=== PATIENT | male | born 1965 | race Caucasian/White ===

== ENCOUNTER 2016-11-07 13:07 | Inpatient (IN) | payer MEDICAID ==
[2016-11-07] MEDS ORDERED: Sodium Chloride 0.9% 10 ML Syringe FLUSH PRN (13:33)
[2016-11-07] MEDS ORDERED: Famotidine 20 MG/2 ML SDV IVPUSH ONE (13:35)
[2016-11-07] MEDS ORDERED: Ondansetron 4 MG/2 ML SDV IVPUSH ONE (13:35)
[2016-11-07] MEDS ORDERED: HYDROmorphone 0.5 MG/0.5 ML Syringe IVPUSH ONE ×2 (13:35→18:01)
--- NOTE | 2016-11-07 14:42 | EDM.PDOC ---
ED HPI GENERAL MEDICAL PROBLEM - General Chief Complaint: Abdominal Pain Stated Complaint: [facility] Time Seen by Provider: 11/07/16 13:13 Source of Information: Reports: Patient, RN Notes Reviewed - History of Present Illness INITIAL COMMENTS - FREE TEXT/NARRATIVE: 51 year old male comes in with R upper abd pain, onset of pain last evening about 16 hrs ago, pain is primarily R upper abd with some radiation to his back. Pain is somewhat colicky, hard to find position of comfort. Pain continues today. No appetite, has not eaten since last evening. He has had nausea and vomiting. No diarrhea. No fever or chills. No voiding sx. Pain does not radiate down into the groin. Right Abdominal Pain Score (Numeric/FACES): 10 - Related Data Allergies Allergy/AdvReac Type Severity Reaction Status Date / Time No Known Allergies Allergy Verified 11/07/16 13:14 Home Meds: Home Meds . [No Known Home Meds] 11/07/16 [History] Past Medical History - Past Health History Medical/Surgical History: Denies Medical/Surgical History Social & Family History - Family History Family Medical History: Noncontributory - Tobacco Use Smoking Status *Q: Current Every Day Smoker Years of Tobacco use: 25 Packs/Tins Daily: 1 ED ROS GENERAL - Review of Systems Review Of Systems: See Below Constitutional: Denies: Fever, Chills, Diaphoresis HEENT: Reports: No Symptoms Respiratory: Denies: Shortness of Breath, Pleuritic Chest Pain, Cough Cardiovascular: Denies: Chest Pain GI/Abdominal: Reports: Abdominal Pain (R upper abd), Nausea, Vomiting. Denies: Diarrhea, Hematochezia, Melena Musculoskeletal: Reports: No Symptoms Skin: Reports: No Symptoms Neurological: Denies: Dizziness, Numbness, Tingling ED EXAM, GI/ABD - Physical Exam Exam: See Below General Appearance: Alert, Moderate Distress Throat/Mouth: Normal Inspection, Normal Oropharynx Head: Atraumatic. No: Facial Swelling Neck: Supple, Full Range of Motion Respiratory/Chest: Lungs Clear, Normal Breath Sounds Cardiovascular: Regular Rate, Rhythm GI/Abdominal Exam: Soft, Tender ( right upper abd, upper mid abd, mild tenderness R flank, RLQ, L abd nontender at this time). No: Guarding, Rebound Back Exam: CVA Tenderness (R). No: CVA Tenderness (L) Extremities: Normal Inspection, Normal Range of Motion Neurological: Alert, Oriented, No Motor/Sensory Deficits Skin Exam: Warm, Dry, Normal Color Course - Vital Signs Last Recorded V/S: Last Vital Signs Temp 98.0 F 11/07/16 13:11 Pulse 97 11/07/16 14:26 Resp 16 11/07/16 14:26 BP 132/88 11/07/16 14:26 Pulse Ox 94 L 11/07/16 14:26 - Orders/Labs/Meds Orders: Active Orders 24 hr Category Date Time Status Peripheral IV Care [RC] . DIRECTED Care 11/07/16 13:34 Active UA W/MICROSCOPIC [URIN] Stat Lab 11/07/16 13:35 Uncollected Sodium Chloride 0.9% [Normal Saline] 1,000 ml Med 11/07/16 14:45 Active IV ONETIME Sodium Chloride 0.9% [Normal Saline] 1,000 ml Med 11/07/16 15:45 Active IV ONETIME Sodium Chloride 0.9% [Normal Saline] 100 ml Med 11/07/16 15:45 Active IV ASDIRECTED Sodium Chloride 0.9% [Saline Flush] Med 11/07/16 13:33 Active 10 ml FLUSH ASDIRECTED PRN Peripheral IV Insertion Adult [OM.PC] Stat Oth 11/07/16 13:34 Ordered Medication Orders Sodium Chloride (Normal Saline) 1,000 mls @ 999 mls/hr IV ONETIME EMILY Last Admin: 11/07/16 16:33 Dose: 999 mls/hr Infusion: 11/07/16 15:46 Dose: 999 mls/hr Admin: 11/07/16 14:45 Dose: 999 mls/hr Sodium Chloride (Normal Saline) 1,000 mls @ 999 mls/hr IV ONETIME EMILY Sodium Chloride (Normal Saline) 100 mls @ 60 mls/hr IV ASDIRECTED EMILY Last Admin: 11/07/16 16:24 Dose: 60 mls/hr Sodium Chloride (Saline Flush) 10 ml FLUSH ASDIRECTED PRN PRN Reason: Keep Vein Open Last Admin: 11/07/16 14:16 Dose: 10 ml Labs: Laboratory Tests 11/07/16 11/07/16 11/07/16 Range/Units 13:15 13:15 13:15 WBC 21.00 H (4.23-9.07) K/mm3 RBC 5.49 (4.63-6.08) M/mm3 Hgb 17.5 (13.7-17.5) gm/L Hct 50.9 (40.1-51.0) % MCV 92.7 H (79.0-92.2) fl MCH 31.9 (25.7-32.2) pg MCHC 34.4 (32.2-35.5) g/dl RDW Std Deviation 45.5 H (35.1-43.9) fL Plt Count 174 (163-337) K/mm3 MPV 11.3 (9.4-12.3) fl Neut % (Auto) 88.9 H (34.0-67.9) % Lymph % (Auto) 4.0 L (21.8-53.1) % Sampson % (Auto) 6.9 (5.3-12.2) % Eos % (Auto) 0 L (0.8-7.0) Baso % (Auto) 0.0 L (0.1-1.2) % Neut # (Auto) 18.68 H (1.78-5.38) K/mm3 Lymph # (Auto) 0.83 L (1.32-3.57) K/mm3 Sampson # (Auto) 1.44 H (0.30-0.82) K/mm3 Eos # (Auto) 0.00 L (0.04-0.54) K/mm3 Baso # (Auto) 0.01 (0.01-0.08) K/mm3 Manual Slide Review Abnormal smear Sodium 138 (136-145) mEq/L Potassium 3.7 (3.5-5.1) mEq/L Chloride 102 (98-107) mEq/L Carbon Dioxide 22 (21-32) mEq/L Anion Gap 17.7 H (5-15) BUN 13 (7-18) mg/dL Creatinine 1.7 H (0.7-1.3) mg/dL Est Cr Clr Drug Dosing 54.27 mL/min Estimated GFR (MDRD) 43 (>60) mL/min BUN/Creatinine Ratio 7.6 L (14-18) Glucose 135 H (74-106) mg/dL Calcium 9.5 (8.5-10.1) mg/dL Total Bilirubin 0.9 (0.2-1.0) mg/dL GGT 37 (15-85) U/L AST 19 (15-37) U/L ALT 34 (16-63) U/L Alkaline Phosphatase 90 (46-116) U/L C-Reactive Protein 7.3 H* (<1.0) mg/dL Total Protein 8.2 (6.4-8.2) g/dl Albumin 4.2 (3.4-5.0) g/dl Globulin 4.0 gm/dL Albumin/Globulin Ratio 1.1 (1-2) Lipase 141 (73-393) U/L Meds: Medications Generic Name Dose Route Start Last Admin Trade Name Freq PRN Reason Stop Dose Admin Sodium Chloride 1,000 mls @ 999 mls/hr 11/07/16 14:45 11/07/16 16:33 Normal Saline IV 999 mls/hr ONETIME EMILY Administration Sodium Chloride 1,000 mls @ 999 mls/hr 11/07/16 15:45 Normal Saline IV ONETIME EMILY Sodium Chloride 100 mls @ 60 mls/hr 11/07/16 15:45 11/07/16 16:24 Normal Saline IV 60 mls/hr ASDIRECTED EMILY Administration Sodium Chloride 10 ml 11/07/16 13:33 11/07/16 14:16 Saline Flush FLUSH 10 ml ASDIRECTED PRN Administration Keep Vein Open Discontinued Medications Generic Name Dose Route Start Last Admin Trade Name Freq PRN Reason Stop Dose Admin Diatrizoate Meglum/Diatrizoate Sod 90 ml 11/07/16 15:44 11/07/16 16:23 Gastrografin 37% PO 11/07/16 15:45 90 ml ONETIME ONE Administration Famotidine 20 mg 11/07/16 13:35 11/07/16 14:10 Pepcid IVPUSH 11/07/16 13:36 20 mg ONETIME ONE Administration Hydromorphone HCl 0.5 mg 11/07/16 13:35 11/07/16 13:47 Dilaudid IVPUSH 11/07/16 13:36 0.5 mg ONETIME ONE Administration Hydromorphone HCl 0.5 mg 11/07/16 16:01 11/07/16 16:05 Dilaudid IVPUSH 11/07/16 16:02 0.5 mg NOW STA Administration Iopamidol 100 ml 11/07/16 15:44 11/07/16 16:24 Isovue-370 (76%) IVPUSH 11/07/16 15:45 100 ml ONETIME ONE Administration Ondansetron HCl 4 mg 11/07/16 13:35 11/07/16 14:14 Zofran IVPUSH 11/07/16 13:36 4 mg ONETIME ONE Administration Sodium Chloride 10 ml 11/07/16 15:44 11/07/16 16:24 Saline Flush FLUSH 11/07/16 15:45 10 ml ONETIME ONE Administration - Re-Assessments/Exams Free Text/Narrative Re-Assessment/Exam: 11/07/16 17:21 CT of abd does show appendix is dilated, surrounding inflamation compatable with acute appendicitis, see report for details. Have discussed this with Dr Dutton, will see patient in ED and be taking patient to ED for appendectomy. Departure - Departure Time of Disposition: 17:25 Disposition: DC/Tfer to [facility] Condition: Serious Clinical Impression: Appendicitis Qualifiers: Appendicitis type: acute appendicitis Acute appendicitis type: unspecified acute appendicitis type Qualified Code(s): K35.80 - Unspecified acute appendicitis - Discharge Information Forms: ED Department Discharge ED Communication - Discussed Case With (1) Discussed Case With (1): Admitting Provider (Dr Dutton, decision to got to admit and go to OR at about 17:20.) - My Orders Last 24 Hours: My Active Orders 11/07/16 13:33 Sodium Chloride 0.9% [Saline Flush] 10 ml FLUSH ASDIRECTED PRN 11/07/16 13:34 Peripheral IV Care [RC] . DIRECTED Peripheral IV Insertion Adult [OM.PC] Stat 11/07/16 13:35 UA W/MICROSCOPIC [URIN] Stat 11/07/16 14:45 Sodium Chloride 0.9% [Normal Saline] 1,000 ml IV ONETIME 11/07/16 15:45 Sodium Chloride 0.9% [Normal Saline] 1,000 ml IV ONETIME Sodium Chloride 0.9% [Normal Saline] 100 ml IV ASDIRECTED - Assessment/Plan Last 24 Hours: My Active Orders 11/07/16 13:33 Sodium Chloride 0.9% [Saline Flush] 10 ml FLUSH ASDIRECTED PRN 11/07/16 13:34 Peripheral IV Care [RC] . DIRECTED Peripheral IV Insertion Adult [OM.PC] Stat 11/07/16 13:35 UA W/MICROSCOPIC [URIN] Stat 11/07/16 14:45 Sodium Chloride 0.9% [Normal Saline] 1,000 ml IV ONETIME 11/07/16 15:45 Sodium Chloride 0.9% [Normal Saline] 1,000 ml IV ONETIME Sodium Chloride 0.9% [Normal Saline] 100 ml IV ASDIRECTED
--- NOTE | 2016-11-07 14:43 | US ---
Limited abdominal ultrasound: Multiple real-time images of the right upper abdomen were obtained. Comparison: No previous abdominal imaging. Technologist's note: Patient extremely gassy Liver not well seen but shows no discrete abnormality. Right kidney shows no hydronephrosis or mass. Right kidney measures 11.5 cm in length. There appears to be a cyst off the inferior right kidney measuring 3.9 cm. Gallbladder shows no calcified gallstones. Minimal comet tail artifact is noted within the gallbladder lumen compatible with gallbladder adenomyomatosis. No biliary duct dilatation is seen. Pancreas is mostly obscured from bowel gas. Impression: 1. Poorly seen liver. Poorly seen pancreas. 2. No gallstones. Probable adenomyosis of the gallbladder. No biliary duct dilatation is seen. 3. 3.9 cm cyst seen inferiorly within the right kidney. Diagnostic code #3
[2016-11-07] MEDS: Sodium Chloride 0.9% 1,000 ML IV SCH ×2 (14:45→16:33)
[2016-11-07] MEDS ORDERED: Iopamidol 755 Mg/ML 100 ML Bottle IVPUSH ONE (15:44)
[2016-11-07] MEDS ORDERED: Sodium Chloride 0.9% 10 ML Syringe FLUSH ONE (15:44)
[2016-11-07] MEDS ORDERED: Diatrizoate Meglumine/Diatrizoate Sodium 37% 120 ML Bottle PO ONE (15:44)
[2016-11-07] MEDS ORDERED: Sodium Chloride 0.9% 100 ML IV SCH (15:45)
[2016-11-07] MEDS ORDERED: Sodium Chloride 0.9% 1,000 ML IV SCH (15:45)
[2016-11-07] MEDS ORDERED: HYDROmorphone 0.5 MG/0.5 ML Syringe IVPUSH STA (16:01)
--- NOTE | 2016-11-07 17:02 | CT ---
CT abdomen and pelvis Technique: Multiple axial sections were obtained from above the dome of the diaphragm inferiorly through the pubic symphysis. Intravenous and oral contrast was given. Delayed images were also obtained from above the kidneys inferiorly through the pubic symphysis. Findings: Dilated appendix is noted within the right midabdomen extending superiorly to beneath the liver showing surrounding inflammatory change. Findings are compatible with appendicitis. Slight atelectasis is seen posteriorly within both lung bases. Calcified granuloma is seen anteriorly within the right lung base. Liver shows no focal parenchymal abnormality. Spleen appears within normal limits. Adrenal glands show no nodule. Pancreas appears within normal limits. Kidneys show no hydronephrosis. Cyst is identified within the lower pole of the left kidney measuring 3.8 cm. Aorta shows atherosclerotic change without aneurysmal dilatation. No retroperitoneal adenopathy or mesenteric abnormalities are seen. No pelvic mass or adenopathy is seen. Delayed images shows contrast excretion into both ureters which show no dilatation. Contrast is seen within the bladder. Bone window settings were reviewed which shows scattered disc space narrowing primarily at L2-3 and L5 S1 with vacuum phenomena. Impression: 1. Findings compatible with appendicitis. Appendix is slightly high in position starting at the mid abdomen and extending superiorly to the inferior liver. 2. Other incidental findings as noted above. Diagnostic code #5
[2016-11-07] MEDS ORDERED: Lidocaine 1% 4 ML ONE (17:50)
[2016-11-07] MEDS ORDERED: Propofol 200 MG/20 ML SDV ONE (17:50)
[2016-11-07] MEDS ORDERED: Midazolam 1 MG/ML 2 ML SDV ONE (17:50)
[2016-11-07] MEDS ORDERED: Ondansetron 4 MG/2 ML SDV ONE (17:50)
[2016-11-07] MEDS ORDERED: Rocuronium 50 MG/5 ML Vial ONE (17:50)
[2016-11-07] MEDS ORDERED: fentaNYL 250 MCG/5 ML SDV ONE (17:50)
--- NOTE | 2016-11-07 17:53 | PCM.PREANE ---
Preanesthetic Assessment - Anesthesia/Transfusion/Family Hx Anesthesia History: No Prior Anesthesia Family History of Anesthesia Reaction: No Transfusion History: No Prior Transfusion(s) - Review of Systems General: Fever, Chills (for 1 day due to abd pain) Pulmonary: No Symptoms Cardiovascular: No Symptoms Gastrointestinal: Abdominal Pain (for 1 day), Vomiting (this am) Neurological: No Symptoms Other: Reports: None - Physical Assessment NPO Status Date: 11/06/16 NPO Status Time: 19:00 Pulse: 88 O2 Sat by Pulse Oximetry: 94 Respiratory Rate: 16 Vital Signs: Last Vital Signs Temp 98.0 F 11/07/16 13:11 Pulse 97 11/07/16 14:26 Resp 16 11/07/16 14:26 BP 132/88 11/07/16 14:26 Pulse Ox 94 L 11/07/16 14:26 Height: 5 ft 10 in Weight: 90.718 kg ASA Class: 2E Mental Status: Alert & Oriented x3 Airway Class: Mallampati = 1 Dentition: Reports: Partial (top) Thyro-Mental Finger Breadths: 3 Mouth Opening Finger Breadths: 3 ROM/Head Extension: Full Lungs: Clear to Auscultation, Normal Respiratory Effort, Wheezing (prior to coughing) Cardiovascular: Regular Rate, Regular Rhythm - Lab Values: Laboratory Last Values WBC 21.00 K/mm3 (4.23-9.07) H 11/07/16 13:15 RBC 5.49 M/mm3 (4.63-6.08) 11/07/16 13:15 Hgb 17.5 gm/L (13.7-17.5) 11/07/16 13:15 Hct 50.9 % (40.1-51.0) 11/07/16 13:15 MCV 92.7 fl (79.0-92.2) H 11/07/16 13:15 MCH 31.9 pg (25.7-32.2) 11/07/16 13:15 MCHC 34.4 g/dl (32.2-35.5) 11/07/16 13:15 RDW Std Deviation 45.5 fL (35.1-43.9) H 11/07/16 13:15 Plt Count 174 K/mm3 (163-337) 11/07/16 13:15 MPV 11.3 fl (9.4-12.3) 11/07/16 13:15 Neut % (Auto) 88.9 % (34.0-67.9) H 11/07/16 13:15 Lymph % (Auto) 4.0 % (21.8-53.1) L 11/07/16 13:15 [place]ble % (Auto) 6.9 % (5.3-12.2) 11/07/16 13:15 Eos % (Auto) 0 (0.8-7.0) L 11/07/16 13:15 Baso % (Auto) 0.0 % (0.1-1.2) L 11/07/16 13:15 Neut # (Auto) 18.68 K/mm3 (1.78-5.38) H 11/07/16 13:15 Lymph # (Auto) 0.83 K/mm3 (1.32-3.57) L 11/07/16 13:15 [place]ble # (Auto) 1.44 K/mm3 (0.30-0.82) H 11/07/16 13:15 Eos # (Auto) 0.00 K/mm3 (0.04-0.54) L 11/07/16 13:15 Baso # (Auto) 0.01 K/mm3 (0.01-0.08) 11/07/16 13:15 Manual Slide Review Abnormal smear 11/07/16 13:15 Sodium 138 mEq/L (136-145) 11/07/16 13:15 Potassium 3.7 mEq/L (3.5-5.1) 11/07/16 13:15 Chloride 102 mEq/L (98-107) 11/07/16 13:15 Carbon Dioxide 22 mEq/L (21-32) 11/07/16 13:15 Anion Gap 17.7 (5-15) H 11/07/16 13:15 BUN 13 mg/dL (7-18) 11/07/16 13:15 Creatinine 1.7 mg/dL (0.7-1.3) H 11/07/16 13:15 Est Cr Clr Drug Dosing 54.27 mL/min 11/07/16 13:15 Estimated GFR (MDRD) 43 mL/min (>60) 11/07/16 13:15 BUN/Creatinine Ratio 7.6 (14-18) L 11/07/16 13:15 Glucose 135 mg/dL (74-106) H 11/07/16 13:15 Calcium 9.5 mg/dL (8.5-10.1) 11/07/16 13:15 Total Bilirubin 0.9 mg/dL (0.2-1.0) 11/07/16 13:15 GGT 37 U/L (15-85) 11/07/16 13:15 AST 19 U/L (15-37) 11/07/16 13:15 ALT 34 U/L (16-63) 11/07/16 13:15 Alkaline Phosphatase 90 U/L (46-116) 11/07/16 13:15 C-Reactive Protein 7.3 mg/dL (<1.0) H* 11/07/16 13:15 Total Protein 8.2 g/dl (6.4-8.2) 11/07/16 13:15 Albumin 4.2 g/dl (3.4-5.0) 11/07/16 13:15 Globulin 4.0 gm/dL 11/07/16 13:15 Albumin/Globulin Ratio 1.1 (1-2) 11/07/16 13:15 Lipase 141 U/L (73-393) 11/07/16 13:15 - Allergies Allergies/Adverse Reactions: Allergies Allergy/AdvReac Type Severity Reaction Status Date / Time shellfish derived Allergy Rash Verified 11/07/16 17:54 - Blood Blood Available: No - Acknowledgements Anesthesia Type Planned: General Anesthesia Pt an Appropriate Candidate for the Planned Anesthesia: Yes Alternatives and Risks of Anesthesia Discussed w Pt/Guardian: Yes Pt/Guardian Understands and Agrees with Anesthesia Plan: Yes PreAnesthesia Questionnaire - Past Health History Medical/Surgical History: Denies Medical/Surgical History Cardiovascular History: Reports: None Respiratory History: Reports: None - SUBSTANCE USE Smoking Status *Q: Current Every Day Smoker (1 ood) Tobacco Use Within Last Twelve Months: Cigarettes (1 ppd) Second Hand Smoke Exposure: Yes Days Per Week of Alcohol Use: 2 Number of Drinks Per Day: 3 Total Drinks Per Week: 6 Recreational Drug Use History: No - HOME MEDS Home Medications: Home Meds . [No Known Home Meds] 11/07/16 [History] - CURRENT (IN HOUSE) MEDS Current Meds: Current Medications Sodium Chloride (Normal Saline) 1,000 mls @ 999 mls/hr IV ONETIME EMILY Last Admin: 11/07/16 16:33 Dose: 999 mls/hr Sodium Chloride (Normal Saline) 1,000 mls @ 999 mls/hr IV ONETIME EMILY Sodium Chloride (Normal Saline) 100 mls @ 60 mls/hr IV ASDIRECTED EMILY Last Admin: 11/07/16 16:24 Dose: 60 mls/hr Sodium Chloride (Saline Flush) 10 ml FLUSH ASDIRECTED PRN PRN Reason: Keep Vein Open Last Admin: 11/07/16 14:16 Dose: 10 ml Discontinued Medications Diatrizoate Meglum/Diatrizoate Sod (Gastrografin 37%) 90 ml PO ONETIME ONE Stop: 11/07/16 15:45 Last Admin: 11/07/16 16:23 Dose: 90 ml Famotidine (Pepcid) 20 mg IVPUSH ONETIME ONE Stop: 11/07/16 13:36 Last Admin: 11/07/16 14:10 Dose: 20 mg Fentanyl (Sublimaze) Confirm Administered Dose 250 mcg .ROUTE .STK-MED ONE Stop: 11/07/16 17:51 Hydromorphone HCl (Dilaudid) 0.5 mg IVPUSH ONETIME ONE Stop: 11/07/16 13:36 Last Admin: 11/07/16 13:47 Dose: 0.5 mg Hydromorphone HCl (Dilaudid) 0.5 mg IVPUSH NOW STA Stop: 11/07/16 16:02 Last Admin: 11/07/16 16:05 Dose: 0.5 mg Lidocaine HCl (Xylocaine-Mpf 1%) Confirm Administered Dose 4 mls @ as directed .ROUTE .STK-MED ONE Stop: 11/07/16 17:51 Iopamidol (Isovue-370 (76%)) 100 ml IVPUSH ONETIME ONE Stop: 11/07/16 15:45 Last Admin: 11/07/16 16:24 Dose: 100 ml Midazolam HCl (Versed 1 Mg/Ml) Confirm Administered Dose 2 mg .ROUTE .STK-MED ONE Stop: 11/07/16 17:51 Ondansetron HCl (Zofran) 4 mg IVPUSH ONETIME ONE Stop: 11/07/16 13:36 Last Admin: 11/07/16 14:14 Dose: 4 mg Ondansetron HCl (Zofran) Confirm Administered Dose 4 mg .ROUTE .STK-MED ONE Stop: 11/07/16 17:51 Propofol (Diprivan 20 Ml) Confirm Administered Dose 200 mg .ROUTE .STK-MED ONE Stop: 11/07/16 17:51 Rocuronium Mineral (Zemuron) Confirm Administered Dose 50 mg .ROUTE .STK-MED ONE Stop: 11/07/16 17:51 Sodium Chloride (Saline Flush) 10 ml FLUSH ONETIME ONE Stop: 11/07/16 15:45 Last Admin: 11/07/16 16:24 Dose: 10 ml
[2016-11-07] MEDS ORDERED: Ertapenem 1 GM in Sodium Chloride 0.9% 100 ML IV ONE (17:55)
--- NOTE | 2016-11-07 18:11 | PCM.HP ---
H&P History of Present Illness - General Date of Service: 11/07/16 Source of Information: Patient - History of Present Illness Initial Comments - Free Text/Narative: 51-year-old white male ate yesterday then complained of upper abdominal pain yesterday mostly in the right upper quadrant. The pain intensified over the next several hours and was associated with anorexia and nausea. Today he presented to the emergency room for persistent pain. Imaging of his abdomen was performed and the CT scan showed a retrocecal appendix with features consistent with appendicitis. His white blood cell count is 20,000. I was asked to consult. Right Abdominal Pain Score (Numeric/FACES): 10 - Related Data Allergies/Adverse Reactions: Allergies Allergy/AdvReac Type Severity Reaction Status Date / Time shellfish derived Allergy Swollen Verified 11/07/16 17:56 Tongue Home Medications: Home Meds . [No Known Home Meds] 11/07/16 [History] Past Medical History - Past Health History Medical/Surgical History: Denies Medical/Surgical History Cardiovascular History: Reports: None Respiratory History: Reports: None Social & Family History - Family History Family Medical History: Noncontributory - Tobacco Use Smoking Status *Q: Current Every Day Smoker (1 ood) Years of Tobacco use: 25 Packs/Tins Daily: 1 Second Hand Smoke Exposure: Yes - Alcohol Use Days Per Week of Alcohol Use: 2 Number of Drinks Per Day: 3 Total Drinks Per Week: 6 - Recreational Drug Use Recreational Drug Use: No H&P Review of Systems - Review of Systems: Review Of Systems: See Below Gastrointestinal: Reports: Abdominal Pain Exam - Exam Exam: See Below - Vital Signs Vital Signs: Last Vital Signs Temp 36.7 C 11/07/16 13:11 Pulse 88 11/07/16 17:55 Resp 16 11/07/16 17:55 BP 132/88 11/07/16 14:26 Pulse Ox 94 L 11/07/16 17:55 Weight: 90.718 kg - Exam General: Alert, Oriented, Cooperative HEENT: EACs Clear, EOMI, Hearing Intact, Other (Poor dentition) Neck: Supple, Trachea Midline Lungs: Clear to Auscultation, Normal Respiratory Effort Cardiovascular: Regular Rate, Regular Rhythm, Normal S1, Normal S2 GI/Abdominal Exam: Tender (Right upper quadrant) Rectal (Males) Exam: Deferred Back Exam: Normal Inspection Extremities: Non-Tender Skin: Warm, Dry, Intact Psychiatric: Normal Mood - Patient Data Lab Results Last 24 hrs: Laboratory Results - last 24 hr 11/07/16 11/07/16 11/07/16 Range/Units 13:15 13:15 13:15 WBC 21.00 H (4.23-9.07) K/mm3 RBC 5.49 (4.63-6.08) M/mm3 Hgb 17.5 (13.7-17.5) gm/L Hct 50.9 (40.1-51.0) % MCV 92.7 H (79.0-92.2) fl MCH 31.9 (25.7-32.2) pg MCHC 34.4 (32.2-35.5) g/dl RDW Std Deviation 45.5 H (35.1-43.9) fL Plt Count 174 (163-337) K/mm3 MPV 11.3 (9.4-12.3) fl Neut % (Auto) 88.9 H (34.0-67.9) % Lymph % (Auto) 4.0 L (21.8-53.1) % Burnett % (Auto) 6.9 (5.3-12.2) % Eos % (Auto) 0 L (0.8-7.0) Baso % (Auto) 0.0 L (0.1-1.2) % Neut # (Auto) 18.68 H (1.78-5.38) K/mm3 Lymph # (Auto) 0.83 L (1.32-3.57) K/mm3 Burnett # (Auto) 1.44 H (0.30-0.82) K/mm3 Eos # (Auto) 0.00 L (0.04-0.54) K/mm3 Baso # (Auto) 0.01 (0.01-0.08) K/mm3 Manual Slide Review Abnormal smear Sodium 138 (136-145) mEq/L Potassium 3.7 (3.5-5.1) mEq/L Chloride 102 (98-107) mEq/L Carbon Dioxide 22 (21-32) mEq/L Anion Gap 17.7 H (5-15) BUN 13 (7-18) mg/dL Creatinine 1.7 H (0.7-1.3) mg/dL Est Cr Clr Drug Dosing 54.27 mL/min Estimated GFR (MDRD) 43 (>60) mL/min BUN/Creatinine Ratio 7.6 L (14-18) Glucose 135 H (74-106) mg/dL Calcium 9.5 (8.5-10.1) mg/dL Total Bilirubin 0.9 (0.2-1.0) mg/dL GGT 37 (15-85) U/L AST 19 (15-37) U/L ALT 34 (16-63) U/L Alkaline Phosphatase 90 (46-116) U/L C-Reactive Protein 7.3 H* (<1.0) mg/dL Total Protein 8.2 (6.4-8.2) g/dl Albumin 4.2 (3.4-5.0) g/dl Globulin 4.0 gm/dL Albumin/Globulin Ratio 1.1 (1-2) Lipase 141 (73-393) U/L Result Diagrams: 11/07/16 13:15 11/07/16 13:15 *Q Meaningful Use (ADM) - VTE *Q VTE Criteria *Q: - Stroke *Q Stroke Criteria *Q: - AMI *Q AMI Criteria *Q: Problem List Initiated/Reviewed/Updated: Yes Orders Last 24hrs: Active Orders 24 hr Category Date Time Status Antiembolic Devices [RC] PER UNIT ROUTINE Care 11/07/16 17:57 Active Communication Order [RC] ROUTINE Care 11/07/16 17:55 Active Patient to Empty Bladder [RC] ASDIRECTED Care 11/07/16 17:55 Active Peripheral IV Care [RC] . DIRECTED Care 11/07/16 13:34 Active RT Aerosol Therapy [RC] ASDIRECTED Care 11/07/16 17:56 Active Verify Patient Consent Obtain [RC] ASDIRECTED Care 11/07/16 17:55 Active Nothing Per Oral Diet [DIET] Diet 11/07/16 Dinner Active UA W/MICROSCOPIC [URIN] Stat Lab 11/07/16 17:45 Received Albuterol [Proventil Neb Soln] Med 11/07/16 19:00 Once 2.5 mg NEB ONETIME ONE Ertapenem [INVanz] 1 gm Med 11/07/16 17:55 Ordered Sodium Chloride 0.9% [Normal Saline] 100 ml IV ONETIME Sodium Chloride 0.9% [Normal Saline] 1,000 ml Med 11/07/16 14:45 Active IV ONETIME Sodium Chloride 0.9% [Normal Saline] 1,000 ml Med 11/07/16 15:45 Active IV ONETIME Sodium Chloride 0.9% [Normal Saline] 100 ml Med 11/07/16 15:45 Active IV ASDIRECTED Sodium Chloride 0.9% [Saline Flush] Med 11/07/16 13:33 Active 10 ml FLUSH ASDIRECTED PRN Peripheral IV Insertion Adult [OM.PC] Stat Oth 11/07/16 13:34 Ordered Sequential Compression Device [OM.PC] Routine Oth 11/07/16 17:55 Ordered Resuscitation Status Routine Resus Stat 11/07/16 17:55 Ordered Medication Orders Albuterol (Proventil Neb Soln) 2.5 mg NEB ONETIME ONE Stop: 11/07/16 19:01 Sodium Chloride (Normal Saline) 1,000 mls @ 999 mls/hr IV ONETIME EMILY Last Admin: 11/07/16 16:33 Dose: 999 mls/hr Infusion: 11/07/16 15:46 Dose: 999 mls/hr Admin: 11/07/16 14:45 Dose: 999 mls/hr Sodium Chloride (Normal Saline) 1,000 mls @ 999 mls/hr IV ONETIME EMILY Sodium Chloride (Normal Saline) 100 mls @ 60 mls/hr IV ASDIRECTED EMILY Last Admin: 11/07/16 16:24 Dose: 60 mls/hr Ertapenem 1 gm/ Sodium (Chloride) 100 mls @ 100 mls/hr IV ONETIME ONE Stop: 11/07/16 18:54 Sodium Chloride (Saline Flush) 10 ml FLUSH ASDIRECTED PRN PRN Reason: Keep Vein Open Last Admin: 11/07/16 14:16 Dose: 10 ml Assessment/Plan Comment:: imp: Acute retrocecal appendicitis. Requires appendectomy. plan: Laparoscopic appendectomy possible open. I discussed the procedure as well as the alternatives with the patient and the patient's family. They want me to proceed.
[2016-11-07] MEDS ORDERED: HYDROmorphone 1 MG/ML Syringe IVPUSH ONE (18:55)
[2016-11-07] MEDS ORDERED: HYDROmorphone 1 MG/ML Syringe ONE (18:59)
[2016-11-07] MEDS ORDERED: Albuterol 0.083% 2.5 MG/3 ML Neb Soln NEB ONE (19:00)
[2016-11-07] MEDS ORDERED: Lidocaine 1% with EPINEPHrine 1:100,000 20 ML MDV ONE (19:23)
[2016-11-07] MEDS ORDERED: Bupivacaine 0.5%/EPINEPHrine 1:200,000 50 ML MDV ONE (19:23)
[2016-11-07] MEDS ORDERED: Meperidine PF 50 MG/ML Syringe IVPUSH PRN (20:20)
[2016-11-07] MEDS ORDERED: fentaNYL 100 MCG/2 ML SDV IVPUSH PRN (20:20)
[2016-11-07] MEDS ORDERED: Ondansetron 4 MG/2 ML SDV IVPUSH PRN ×2 (20:20→21:56)
[2016-11-07] MEDS ORDERED: HYDROmorphone 1 MG/ML Syringe IVPUSH PRN (20:20)
[2016-11-07] MEDS ORDERED: Lactated Ringers 1,000 ML ONE ×2 (20:37)
[2016-11-07] MEDS ORDERED: Neostigmine Methylsulfate 10 MG/10 ML MDV ONE (21:12)
[2016-11-07] MEDS ORDERED: Glycopyrrolate 0.2 MG/ML SDV ONE ×2 (21:13→21:15)
[2016-11-07] MEDS ORDERED: fentaNYL 100 MCG/2 ML SDV ONE (21:28)
[2016-11-07] MEDS ORDERED: Ketorolac 30 MG/ML SDV ONE (21:34)
[2016-11-07] MEDS ORDERED: Succinylcholine 200 MG/10 ML MDV ONE (21:35)
--- NOTE | 2016-11-07 21:58 | PCM.POSTAN ---
POST ANESTHESIA ASSESSMENT - MENTAL STATUS Mental Status: Somnolent - VITAL SIGNS Pulse Rate: 115 SaO2: 96 Resp Rate: 15 Blood Pressure: 125/73 Temperature: 101.6 F - RESPIRATORY Respiratory Status: Respiratory Rate WNL, Airway Patent, O2 Saturation Stable, Supplemental Oxygen - CARDIOVASCULAR CV Status: Pulse Rate WNL, Blood Pressure Stable - GASTROINTESTINAL GI Status: No Symptoms - PAIN Pain Score: 0 - POST OP HYDRATION Hydration Status: Adequate & Stable
--- NOTE | 2016-11-07 21:58 | PCM.OPNOTE ---
- General Post-Op/Procedure Note Date of Surgery/Procedure: 11/07/16 Operative Procedure(s): 1. laparoscopic appendectomy. 2. umbilical hernia repair Findings: Feculent free fluid in Morison's pouch secondary to a ruptured right upper quadrant retrocecal appendix with particulate fecal material from the lumen of the appendix and no cecal rupture. Dense inflammation and induration throughout the area of the appendix which was gangrenous throughout its middle aspect. Incarcerated umbilical hernia containing preperitoneal fat. 1 cm defect Pre Op Diagnosis: Acute retrocecal appendicitis Post-Op Diagnosis: 1. Ruptured gangrenous retrocecal appendix with right upper quadrant fecal peritonitis. 2. Incarcerated umbilical hernia Anesthesia Technique: General ET Tube, Local Primary Surgeon: Todd Dutton Pathology: appendix EBL in mLs: 3 Complications: None Condition: Good Free Text/Narrative:: After adequate general endotracheal tube anesthesia was obtained the patient's abdomen was clipper prepped then draped sterilely for the procedure. A supraumbilical incision was made with a 15 blade after local analgesia. There was an incarcerated umbilical hernia readily apparent. The preperitoneal fat herniation was dissected away from the fascial margins with Metzenbaums scissors. I was able to reduce the hernia at this point. I enlarged this opening for insertion of the 12 mm camera port. Once this was done CO2 pneumoperitoneum was obtained. A working toward 5 mm in size were placed in the suprapubic region in the left lower quadrant. Exploration revealed the findings above. I followed the tinea of the cecum down to the base of the appendix after mobilizing the cecum slightly at the white line. I irrigated out the right upper quadrant with about 500 mL of saline to remove as much fecal-containing fluid as possible. I dissected out the base and then fired a stapler across it. The appendix was taken down in a retrograde fashion with me firing 2 loads across the appendiceal mesentery. A fair amount of sucker dissection was done to free the appendix and the cecum away from the dense inflammatory tissue within the area. The specimen was placed in a bag and removed through the umbilicus. I irrigated out the right upper quadrant with 2 more liters of saline. I packed the omentum in the right upper quadrant. I decannulated the abdomen under direct vision and there was no bleeding from the port sites. 2 [id number] Vicryl sutures were placed in the umbilical area to close the umbilical hernia defect. The subcutaneous tissues were closed with 3-0 Vicryl and the skin was closed with 4-0 subcuticular Vicryl. English Lecturer photographs were taken for the patient and for the record. There were no procedural complications.
[2016-11-07] MEDS ORDERED: Piperacillin/Tazobactam 4.5 GM in Sodium Chloride 0.9% 100 ML IV ONE (22:00)
[2016-11-08] MEDS ORDERED: Diphtheria,Pertussis(Acell),Tetanus Vaccine 0.5 ML SDV IM ONE (00:17)
[2016-11-08] MEDS ORDERED: Pneumococcal Polyvalent-23 Vaccine 0.5 ML SDV IM ONE (00:17)
[2016-11-08] MEDS: Sodium Chloride 0.9% 1,000 ML IV SCH ×4 (00:34→20:16)
[2016-11-08] MEDS ORDERED: Acetaminophen 325 MG Tab PO ONE (03:13)
[2016-11-08] MEDS ORDERED: Piperacillin/Tazobactam 4.5 GM in Sodium Chloride 0.9% 100 ML IV SCH (06:00)
[2016-11-08] MEDS: Piperacillin/Tazobactam 4.5 GM in Sodium Chloride 0.9% 100 ML IV SCH ×2 (06:59→15:29)
[2016-11-08] MEDS: Acetaminophen/oxyCODONE 325-5 MG Tab PO PRN ×3 (08:37→20:18)
[2016-11-08] MEDS: HYDROmorphone 0.5 MG/0.5 ML Syringe IVPUSH PRN ×2 (09:23→15:29)
--- NOTE | 2016-11-08 09:23 | PCM48HPAN ---
Post Anesthesia Note - EVALUATION WITHIN 48HRS OF ANESTHETIC Vital Signs in Normal Range: Yes Patient Participated in Evaluation: Yes Respiratory Function Stable: Yes Airway Patent: Yes Cardiovascular Function Stable: Yes Hydration Status Stable: Yes Pain Control Satisfactory: Yes Nausea and Vomiting Control Satisfactory: Yes Mental Status Recovered: Yes - COMMENTS/OBSERVATIONS Free Text/Narrative:: Patient doing well, resting in bed. Only complaint was some tolerable incisional pain. Denied any PONV.
[2016-11-08] MEDS ORDERED: hydrALAZINE 20 MG/ML SDV IVPUSH PRN (10:33)
[2016-11-08] MEDS ORDERED: Metoprolol Tartrate 5 MG/5 ML SDV IVPUSH PRN ×2 (10:34→12:14)
--- NOTE | 2016-11-08 10:43 | PCM.CONS ---
H&P History of Present Illness - General Date of Service: 11/08/16 Admit Problem/Dx: Admission Diagnosis/Problem Admission Diagnosis/Problem Appendicitis Patient is Postop day #1 with ruptured appendicitis- s/p appendectomy with Dr. Dutton. No PMH otherwise; patient denies any other PMH or PSH. He does smoke 1 pack of cigarettes per day x 25 years. States he is a "social drinker" however Hospitalist service is consulted for assistance with withdrawl symptoms. CIWA is 16 this morning. Further interview with patient reveals Social History significant for: he drinks 3-4 mixed drinks 3-4 nights per week. 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 Significant other "Lisbeth" is present in room as well as parents. He does not have any children. Family hx significant for: DM in maternal cousin and maternal grandfather Cancer in grandfather and a cousin No hx of CAD/CVA/HTN or other medical problems upon questioning. Source of Information: Patient, Old Records, RN Notes Reviewed, Other (Nursing reports) History Limitations: Reports: No Limitations, Other (anxious) Right Abdominal Pain Score (Numeric/FACES): 5 - Related Data Allergies/Adverse Reactions: Allergies Allergy/AdvReac Type Severity Reaction Status Date / Time shellfish derived Allergy Swollen Verified 11/07/16 17:56 Tongue Home Medications: Home Meds . [No Known Home Meds] 11/07/16 [History] Past Medical History - Past Health History Medical/Surgical History: Denies Medical/Surgical History Cardiovascular History: Reports: None Respiratory History: Reports: None Social & Family History - Family History Family Medical History: Noncontributory - Tobacco Use Smoking Status *Q: Current Every Day Smoker Years of Tobacco use: 25 Packs/Tins Daily: 1 Used Tobacco, but Quit: No Second Hand Smoke Exposure: No - Caffeine Use Caffeine Use: Reports: Soda Other Caffeine Use: 4 bottles of mt. dews a day - Alcohol Use Days Per Week of Alcohol Use: 1 Number of Drinks Per Day: 0 Total Drinks Per Week: 0 Date of Last Drink: 11/06/16 Time of Last Drink: 20:00 - Recreational Drug Use Recreational Drug Use: No H&P Review of Systems - Review of Systems: Review Of Systems: See Below General: Reports: Fever (this am with temp of 100.8), Weakness, Fatigue HEENT: Reports: No Symptoms Pulmonary: Reports: Wheezing (with ambulation), Other (was on 10L of supplemental oxygen postop-- now on RA). Denies: Shortness of Breath Cardiovascular: Reports: No Symptoms. Denies: Chest Pain, Palpitations, Dyspnea on Exertion Gastrointestinal: Reports: Abdominal Pain. Denies: Nausea, Vomiting Genitourinary: Reports: No Symptoms. Denies: Dysuria, Frequency, Hematuria, Retention Psychiatric: Reports: Anxiety, Agitation, Cravings Exam - Exam Exam: See Below - Vital Signs Vital Signs: Last Vital Signs Temp 99.3 F 11/08/16 08:06 Pulse 93 11/08/16 08:06 Resp 12 11/08/16 08:06 BP 103/67 11/08/16 08:06 Pulse Ox 93 L 11/08/16 08:06 Weight: 212 lb - Exam Quality Assessment: DVT Prophylaxis General: Alert, Oriented, Cooperative, Other (anxious) Neck: Supple Lungs: Normal Respiratory Effort, Wheezing Cardiovascular: Regular Rate, Regular Rhythm GI/Abdominal Exam: No Organomegaly, No Distention, Tender (diffusely), Other ( bowel sounds present but hypoactive; surgical sites present with steristrips CDI ) (Male) Exam: Deferred Rectal (Males) Exam: Deferred Back Exam: Normal Inspection. No: Muscle Spasm, Paraspinal Tenderness, Vertebral Tenderness Extremities: Normal Inspection, No Pedal Edema Peripheral Pulses: 2+: Dorsalis Pedis (L), Dorsalis Pedis (R) Skin: Warm, Dry, Intact Neurological: Cranial Nerves Intact, Strength Equal Bilateral, Normal Speech, Normal Tone Neuro Extensive - Mental Status: Alert, Oriented x3, Normal Mood/Affect, Normal Cognition, Memory Intact Neuro Extensive - Motor, Sensory, Reflexes: CN II-XII Intact Psychiatric: Alert, Normal Affect, Normal Mood. No: Anxious - Patient Data Result Diagrams: 11/08/16 10:47 11/08/16 10:47 Consult PN Assessment/Plan POD#: 1 (1) Appendicitis SNOMED Code(s): 68904106 Code(s): K37 - UNSPECIFIED APPENDICITIS Current Visit: Yes Qualifiers: Qualified Code(s): K35.80 - Unspecified acute appendicitis Problem List Initiated/Reviewed/Updated: Yes My Orders Last 24 Hours: My Active Orders 11/08/16 10:33 hydrALAZINE [Apresoline] 20 mg IVPUSH Q4H PRN 11/08/16 10:34 Metoprolol Tartrate [Lopressor] 5 mg IVPUSH Q4H PRN 11/08/16 10:36 OT Evaluation and Treatment [CONS] Routine PT Evaluation and Treatment [CONS] Routine 11/08/16 10:37 BASIC METABOLIC PANEL,BMP [CHEM] Routine CBC WITH AUTO DIFF [HEME] Timed MAGNESIUM [CHEM] Timed 11/08/16 10:45 Folic Acid 1 mg PO DAILY Multivitamins,Therapeutic [Thera] 1 each PO DAILY Topiramate [Topamax] 25 mg PO BID chlordiazePOXIDE [Librium] 50 mg PO BID 11/08/16 21:00 QUEtiapine [SEROquel] 50 mg PO BEDTIME Thiamine [Vitamin B-1] 100 mg PO BEDTIME Plan: A/P: S/P Appendectomy with ruptured appendix; General Surgeon, Dr. Dutton-- Primary Attending -POD #1 -Postoperative Surgical Care per Dr. Dutton -Pain management per Dr Dutton -DVT prophylax per Dr. Dutton -Diet per Dr. Dutton Alcohol use disorder -CIWA this am of 16 -admits to 3-4 mixed drinks 3-4 nights per week -CIWA protocol with ativan PRN -Librium, Topamax, Seroquel -Hydralazine and Lopressor PRN for parameters as ordered -Urine drug screen and blood alcohol levels to be done on initial blood and UA collected. -Dr. Christopher consult for Substance use/abuse evaluation Toabacco use disorder -Nicotine patch Other: GI prophylax PT/OT eval/tx CM/SW for assist with DC planning Patient is Full Code status. Requesting Provider: Dr. Dutton Date Consult Requested: 11/08/16 Reason for Consult: Alcohol withdrawl ? Patient History Reviewed: Yes Admission H&P Reviewed: Yes Time Spent (in minutes): 45
[2016-11-08] MEDS: Multivitamins,Therapeutic Tab PO SCH (11:46)
[2016-11-08] MEDS: Topiramate 25 MG Tab PO SCH ×2 (11:47→20:18)
[2016-11-08] MEDS: chlordiazePOXIDE 25 MG Cap PO SCH ×2 (11:47→20:18)
[2016-11-08] MEDS: Folic Acid 1 MG Tab PO SCH (11:47)
--- NOTE | 2016-11-08 11:54 | PCM.SURGPN ---
- General Info Date of Service: 11/08/16 Functional Status: Reports: Pain Controlled, Tolerating Diet, Ambulating, Incentive Spirometry - Patient Data Vitals - Most Recent: Last Vital Signs Temp 37.2 C 11/08/16 11:51 Pulse 90 11/08/16 11:51 Resp 20 11/08/16 11:51 BP 118/70 11/08/16 11:51 Pulse Ox 94 L 11/08/16 11:51 Weight - Most Recent: 96.162 kg I&O - Last 24 Hours: Intake & Output 11/07/16 11/08/16 11/08/16 22:59 06:59 14:59 Intake Total 1932 Output Total 10 Balance 1922 Lab Results Last 24 Hrs: Laboratory Results - last 24 hr 11/08/16 11/08/16 11/08/16 Range/Units 10:47 10:47 10:47 WBC 13.67 H (4.23-9.07) K/mm3 RBC 4.34 L (4.63-6.08) M/mm3 Hgb 13.9 (13.7-17.5) gm/L Hct 42.1 (40.1-51.0) % MCV 97.0 H (79.0-92.2) fl MCH 32.0 (25.7-32.2) pg MCHC 33.0 (32.2-35.5) g/dl RDW Std Deviation 48.9 H (35.1-43.9) fL Plt Count 134 L (163-337) K/mm3 MPV 10.8 (9.4-12.3) fl Neut % (Auto) 80.8 H (34.0-67.9) % Lymph % (Auto) 10.9 L (21.8-53.1) % [place] % (Auto) 7.8 (5.3-12.2) % Eos % (Auto) 0.1 L (0.8-7.0) Baso % (Auto) 0.1 (0.1-1.2) % Neut # (Auto) 11.05 H (1.78-5.38) K/mm3 Lymph # (Auto) 1.49 (1.32-3.57) K/mm3 [place] # (Auto) 1.06 H (0.30-0.82) K/mm3 Eos # (Auto) 0.01 L (0.04-0.54) K/mm3 Baso # (Auto) 0.02 (0.01-0.08) K/mm3 Sodium 139 (136-145) mEq/L Potassium 3.9 (3.5-5.1) mEq/L Chloride 105 (98-107) mEq/L Carbon Dioxide 26 (21-32) mEq/L Anion Gap 11.9 (5-15) BUN 14 (7-18) mg/dL Creatinine 1.7 H (0.7-1.3) mg/dL Est Cr Clr Drug Dosing 55.98 mL/min Estimated GFR (MDRD) 43 (>60) mL/min BUN/Creatinine Ratio 8.2 L (14-18) Glucose 100 (74-106) mg/dL Calcium 8.5 (8.5-10.1) mg/dL Magnesium 1.6 L (1.8-2.4) mg/dl Med Orders - Current: Current Medications Chlordiazepoxide HCl (Librium) 50 mg PO BID [facility] Last Admin: 11/08/16 11:47 Dose: 50 mg Folic Acid (Folic Acid) 1 mg PO DAILY [facility] Last Admin: 11/08/16 11:47 Dose: 1 mg Hydralazine HCl (Apresoline) 20 mg IVPUSH Q4H PRN PRN Reason: sb/p >150 Hydromorphone HCl (Dilaudid) 0.5 mg IVPUSH Q1H PRN PRN Reason: Pain Last Admin: 11/08/16 09:23 Dose: 0.5 mg Sodium Chloride (Normal Saline) 1,000 mls @ 150 mls/hr IV ASDIRECTED [facility] Last Admin: 11/08/16 06:58 Dose: 150 mls/hr Piperacillin Sod/Tazobactam (Sod 4.5 gm/ Sodium Chloride) 100 mls @ 25 mls/hr IV Q8H [facility] Last Admin: 11/08/16 06:59 Dose: 25 mls/hr Metoprolol Tartrate (Lopressor) 5 mg IVPUSH Q4H PRN PRN Reason: HR >120 Multivitamins (Thera) 1 each PO DAILY [facility] Last Admin: 11/08/16 11:46 Dose: 1 each Ondansetron HCl (Zofran) 4 mg IVPUSH Q8H PRN PRN Reason: Nausea/Vomiting Oxycodone/Acetaminophen (Percocet 325-5 Mg) 1 tab PO Q6H PRN PRN Reason: Pain Last Admin: 11/08/16 08:37 Dose: 1 tab Quetiapine Fumarate (Seroquel) 50 mg PO BEDTIME EMILY Sodium Chloride (Saline Flush) 10 ml FLUSH ASDIRECTED PRN PRN Reason: Keep Vein Open Last Admin: 11/07/16 14:16 Dose: 10 ml Thiamine HCl (Vitamin B-1) 100 mg PO BEDTIME EMILY Topiramate (Topamax) 25 mg PO BID EMILY Last Admin: 11/08/16 11:47 Dose: 25 mg Discontinued Medications Acetaminophen (Tylenol) 650 mg PO NOW ONE Stop: 11/08/16 03:14 Last Admin: 11/08/16 03:26 Dose: 650 mg Albuterol (Proventil Neb Soln) 2.5 mg NEB ONETIME ONE Stop: 11/07/16 19:01 Last Admin: 11/07/16 18:30 Dose: 2.5 mg Bupivacaine HCl/Epinephrine Bitart (Marcaine 0.5%/Epinephrine 1:200,000) Confirm Administered Dose 50 ml .ROUTE .STK-MED ONE Stop: 11/07/16 19:24 Diatrizoate Meglum/Diatrizoate Sod (Gastrografin 37%) 90 ml PO ONETIME ONE Stop: 11/07/16 15:45 Last Admin: 11/07/16 16:23 Dose: 90 ml Diphtheria/Tetanus/Acell Pertussis (Adacel) 0.5 ml IM .ONCE ONE Stop: 11/08/16 00:18 Famotidine (Pepcid) 20 mg IVPUSH ONETIME ONE Stop: 11/07/16 13:36 Last Admin: 11/07/16 14:10 Dose: 20 mg Fentanyl (Sublimaze) Confirm Administered Dose 250 mcg .ROUTE .STK-MED ONE Stop: 11/07/16 17:51 Fentanyl (Sublimaze) 50 mcg IVPUSH Q5M PRN PRN Reason: Pain Fentanyl (Sublimaze) Confirm Administered Dose 100 mcg .ROUTE .STK-MED ONE Stop: 11/07/16 21:29 Glycopyrrolate (Robinul) Confirm Administered Dose 0.4 mg .ROUTE .STK-MED ONE Stop: 11/07/16 21:14 Glycopyrrolate (Robinul) Confirm Administered Dose 0.2 mg .ROUTE .STK-MED ONE Stop: 11/07/16 21:16 Hydromorphone HCl (Dilaudid) 0.5 mg IVPUSH ONETIME ONE Stop: 11/07/16 13:36 Last Admin: 11/07/16 13:47 Dose: 0.5 mg Hydromorphone HCl (Dilaudid) 0.5 mg IVPUSH NOW STA Stop: 11/07/16 16:02 Last Admin: 11/07/16 16:05 Dose: 0.5 mg Hydromorphone HCl (Dilaudid) 0.5 mg IVPUSH ONETIME ONE Stop: 11/07/16 18:02 Last Admin: 11/07/16 18:13 Dose: 0.5 mg Hydromorphone HCl (Dilaudid) 1 mg IVPUSH ONETIME ONE Stop: 11/07/16 18:56 Last Admin: 11/07/16 18:59 Dose: 1 mg Hydromorphone HCl (Dilaudid) Confirm Administered Dose 1 mg .ROUTE .STK-MED ONE Stop: 11/07/16 19:00 Last Admin: 11/08/16 00:20 Dose: Not Given Hydromorphone HCl (Dilaudid) 0.5 mg IVPUSH Q15M PRN PRN Reason: severe pain Stop: 11/07/16 20:36 Sodium Chloride (Normal Saline) 1,000 mls @ 999 mls/hr IV ONETIME EMILY Last Admin: 11/07/16 16:33 Dose: 999 mls/hr Sodium Chloride (Normal Saline) 1,000 mls @ 999 mls/hr IV ONETIME EMILY Sodium Chloride (Normal Saline) 100 mls @ 60 mls/hr IV ASDIRECTED [facility] Last Admin: 11/07/16 16:24 Dose: 60 mls/hr Lidocaine HCl (Xylocaine-Mpf 1%) Confirm Administered Dose 4 mls @ as directed .ROUTE .STK-MED ONE Stop: 11/07/16 17:51 Ertapenem 1 gm/ Sodium (Chloride) 100 mls @ 100 mls/hr IV ONETIME ONE Stop: 11/07/16 18:54 Last Admin: 11/07/16 18:22 Dose: 100 mls/hr Lactated Ringer's (Ringers, Lactated) Confirm Administered Dose 1,000 mls @ as directed .ROUTE .STK-MED ONE Stop: 11/07/16 20:38 Lactated Ringer's (Ringers, Lactated) Confirm Administered Dose 1,000 mls @ as directed .ROUTE .STK-MED ONE Stop: 11/07/16 20:38 Piperacillin Sod/Tazobactam (Sod 4.5 gm/ Sodium Chloride) 100 mls @ 200 mls/hr IV ONETIME ONE Stop: 11/07/16 22:29 Last Admin: 11/08/16 00:34 Dose: 200 mls/hr Iopamidol (Isovue-370 (76%)) 100 ml IVPUSH ONETIME ONE Stop: 11/07/16 15:45 Last Admin: 11/07/16 16:24 Dose: 100 ml Ketorolac Tromethamine (Toradol) Confirm Administered Dose 30 mg .ROUTE .STK- MED ONE Stop: 11/07/16 21:35 Lidocaine/Epinephrine (Xylocaine 1% With Epinephrine 1:100,000) Confirm Administered Dose 20 ml .ROUTE .STK-MED ONE Stop: 11/07/16 19:24 Meperidine HCl (Demerol) 12.5 mg IVPUSH ONETIME PRN PRN Reason: shivering Stop: 11/08/16 20:21 Midazolam HCl (Versed 1 Mg/Ml) Confirm Administered Dose 2 mg .ROUTE .STK-MED ONE Stop: 11/07/16 17:51 Neostigmine Methylsulfate (Neostigmine Methylsulfate) Confirm Administered Dose 10 mg .ROUTE .STK-MED ONE Stop: 11/07/16 21:13 Ondansetron HCl (Zofran) 4 mg IVPUSH ONETIME ONE Stop: 11/07/16 13:36 Last Admin: 11/07/16 14:14 Dose: 4 mg Ondansetron HCl (Zofran) Confirm Administered Dose 4 mg .ROUTE .STK-MED ONE Stop: 11/07/16 17:51 Ondansetron HCl (Zofran) 4 mg IVPUSH ONETIME PRN PRN Reason: Nausea/Vomiting Pneumococcal Polyvalent Vaccine (Pneumovax 23) 0.5 ml IM .ONCE ONE Stop: 11/08/16 00:18 Propofol (Diprivan 20 Ml) Confirm Administered Dose 200 mg .ROUTE .STK-MED ONE Stop: 11/07/16 17:51 Rocuronium [place] (Zemuron) Confirm Administered Dose 50 mg .ROUTE .STK-MED ONE Stop: 11/07/16 17:51 Sodium Chloride (Saline Flush) 10 ml FLUSH ONETIME ONE Stop: 11/07/16 15:45 Last Admin: 11/07/16 16:24 Dose: 10 ml Succinylcholine Chloride (Quelicin) Confirm Administered Dose 200 mg .ROUTE .STK -MED ONE Stop: 11/07/16 21:36 - Exam GI/Abdominal Exam: Soft, Non-Tender Psy/Mental Status: Anxious, Agitated - Problem List Review Problem List Initiated/Reviewed/Updated: Yes - My Orders Last 24 Hours: Active Orders 24 hr Category Date Time Status Patient Status [ADT] Routine ADT 11/07/16 21:50 Active Ambulate [RC] 09,15,20 Care 11/07/16 21:49 Active Head of Bed Elevation [RC] BID Care 11/07/16 21:50 Active Notify Provider Consults [RC] ASDIRECTED Care 11/08/16 10:11 Active Oxygen Therapy [RC] ASDIRECTED Care 11/07/16 20:20 Inactive Oxygen Therapy [RC] PRN Care 11/07/16 21:50 Active Pulse Oximetry [RC] ASDIRECTED Care 11/07/16 20:20 Active RT Incentive Spirometry [RC] Q1HWA Care 11/07/16 21:49 Active Vaccines to be Administered [RC] PER UNIT ROUTINE Care 11/08/16 00:17 Active Vital Signs [RC] Q4HR Care 11/07/16 21:50 Active Consult to Physician [CONS] Routine Cons 11/08/16 10:09 Active OT Evaluation and Treatment [CONS] Routine Cons 11/08/16 10:36 Active PT Evaluation and Treatment [CONS] Routine Cons 11/08/16 10:36 Active Clear Liquid Diet [DIET] Diet 11/08/16 Breakfast Active DRUG SCREEN, URINE [URCHEM] Routine Lab 11/08/16 10:41 Received Acetaminophen/oxyCODONE [Percocet 325-5 MG] Med 11/08/16 07:54 Active 1 tab PO Q6H PRN Folic Acid Med 11/08/16 10:45 Active 1 mg PO DAILY HYDROmorphone [Dilaudid] Med 11/07/16 21:54 Active 0.5 mg IVPUSH Q1H PRN Metoprolol Tartrate [Lopressor] Med 11/08/16 10:34 Active 5 mg IVPUSH Q4H PRN Multivitamins,Therapeutic [Thera] Med 11/08/16 10:45 Active 1 each PO DAILY Ondansetron [Zofran] Med 11/07/16 21:56 Active 4 mg IVPUSH Q8H PRN Piperacillin/Tazobactam [Zosyn] 4.5 gm Med 11/08/16 08:00 Active Sodium Chloride 0.9% [Normal Saline] 100 ml IV Q8H QUEtiapine [SEROquel] Med 11/08/16 21:00 Active 50 mg PO BEDTIME Sodium Chloride 0.9% [Normal Saline] 1,000 ml Med 11/07/16 22:00 Active IV ASDIRECTED Thiamine [Vitamin B-1] Med 11/08/16 21:00 Active 100 mg PO BEDTIME Topiramate [Topamax] Med 11/08/16 10:45 Active 25 mg PO BID chlordiazePOXIDE [Librium] Med 11/08/16 10:45 Active 50 mg PO BID hydrALAZINE [Apresoline] Med 11/08/16 10:33 Active 20 mg IVPUSH Q4H PRN Medication Orders Chlordiazepoxide HCl (Librium) 50 mg PO BID [facility] Last Admin: 11/08/16 11:47 Dose: 50 mg Folic Acid (Folic Acid) 1 mg PO DAILY [facility] Last Admin: 11/08/16 11:47 Dose: 1 mg Hydralazine HCl (Apresoline) 20 mg IVPUSH Q4H PRN PRN Reason: sb/p >150 Hydromorphone HCl (Dilaudid) 0.5 mg IVPUSH Q1H PRN PRN Reason: Pain Last Admin: 11/08/16 09:23 Dose: 0.5 mg Sodium Chloride (Normal Saline) 1,000 mls @ 150 mls/hr IV ASDIRECTED [facility] Last Admin: 11/08/16 06:58 Dose: 150 mls/hr Infusion: 11/08/16 06:58 Dose: 150 mls/hr Admin: 11/08/16 00:34 Dose: 150 mls/hr Piperacillin Sod/Tazobactam (Sod 4.5 gm/ Sodium Chloride) 100 mls @ 25 mls/hr IV Q8H EMILY Last Admin: 11/08/16 06:59 Dose: 25 mls/hr Metoprolol Tartrate (Lopressor) 5 mg IVPUSH Q4H PRN PRN Reason: HR >120 Multivitamins (Thera) 1 each PO DAILY [facility] Last Admin: 11/08/16 11:46 Dose: 1 each Ondansetron HCl (Zofran) 4 mg IVPUSH Q8H PRN PRN Reason: Nausea/Vomiting Oxycodone/Acetaminophen (Percocet 325-5 Mg) 1 tab PO Q6H PRN PRN Reason: Pain Last Admin: 11/08/16 08:37 Dose: 1 tab Quetiapine Fumarate (Seroquel) 50 mg PO BEDTIME [facility] Sodium Chloride (Saline Flush) 10 ml FLUSH ASDIRECTED PRN PRN Reason: Keep Vein Open Last Admin: 11/07/16 14:16 Dose: 10 ml Thiamine HCl (Vitamin B-1) 100 mg PO BEDTIME EMILY Topiramate (Topamax) 25 mg PO BID [facility] Last Admin: 11/08/16 11:47 Dose: 25 mg - Assessment Assessment (Free Text/Narrative):: Brief temperature elevation yesterday most likely due to atelectasis. Patient is showing signs of alcohol withdrawal. - Plan Plan (Free Text/Narrative):: I will consult the hospitalist and his team can manage the alcohol withdrawal syndrome. He may need a monitored bed. In the meantime we'll continue IV antibiotics for 5-7 days.
[2016-11-08] MEDS ORDERED: LORazepam 2 MG/ML MDV IVPUSH PRN ×2 (12:14)
--- NOTE | 2016-11-08 12:23 | PCM.SN ---
- Free Text/Narrative Note: Patient seen and examined at beside with SHARLENE Rasheed. He seems to be doing just fine w/o any acute issues. He has no complaints at this time.
[2016-11-08] MEDS ORDERED: Magnesium Sulfate/Water 2 GM in Premix Bag 1 BAG IV ONE (13:00)
[2016-11-08] MEDS: Nicotine 21 MG/24 Hr Patch TRDERM SCH (15:30)
[2016-11-08] MEDS ORDERED: Acetaminophen 325 MG Tab PO PRN (20:06)
[2016-11-08] MEDS: QUEtiapine 25 MG Tab PO SCH (20:18)
[2016-11-08] MEDS: Thiamine 100 MG Tab PO SCH (20:18)
[2016-11-08] MEDS: Famotidine 20 MG Tab PO SCH (20:18)
[2016-11-09] MEDS: Piperacillin/Tazobactam 4.5 GM in Sodium Chloride 0.9% 100 ML IV SCH ×3 (00:18→16:13)
[2016-11-09] MEDS: Sodium Chloride 0.9% 1,000 ML IV SCH (03:14)
[2016-11-09] MEDS: Acetaminophen/oxyCODONE 325-5 MG Tab PO PRN ×3 (07:36→20:19)
--- NOTE | 2016-11-09 07:44 | PCM.SURGPN ---
- General Info POD#: 2 Functional Status: Reports: Pain Controlled, Tolerating Diet (Liquids), Ambulating (Frequently), Urinating (Hourly), Incentive Spirometry (Very compliant) - Review of Systems Pulmonary: Reports: Cough (With sputum production) Gastrointestinal: Reports: Abdominal Pain (Around the umbilicus) - Patient Data Vitals - Most Recent: Last Vital Signs Temp 37.7 C 11/09/16 03:27 Pulse 98 11/09/16 03:27 Resp 18 11/09/16 03:27 BP 141/84 H 11/09/16 03:27 Pulse Ox 94 L 11/09/16 03:27 Weight - Most Recent: 98.248 kg I&O - Last 24 Hours: Intake & Output 11/08/16 11/09/16 11/09/16 22:59 06:59 14:59 Intake Total 4265 2850 Output Total 375 Balance 3890 2850 Lab Results Last 24 Hrs: Laboratory Results - last 24 hr 11/08/16 11/08/16 11/08/16 Range/Units 10:47 10:47 10:47 WBC 13.67 H (4.23-9.07) K/mm3 RBC 4.34 L (4.63-6.08) M/mm3 Hgb 13.9 (13.7-17.5) gm/L Hct 42.1 (40.1-51.0) % MCV 97.0 H (79.0-92.2) fl MCH 32.0 (25.7-32.2) pg MCHC 33.0 (32.2-35.5) g/dl RDW Std Deviation 48.9 H (35.1-43.9) fL Plt Count 134 L (163-337) K/mm3 MPV 10.8 (9.4-12.3) fl Neut % (Auto) 80.8 H (34.0-67.9) % Lymph % (Auto) 10.9 L (21.8-53.1) % Walsh % (Auto) 7.8 (5.3-12.2) % Eos % (Auto) 0.1 L (0.8-7.0) Baso % (Auto) 0.1 (0.1-1.2) % Neut # (Auto) 11.05 H (1.78-5.38) K/mm3 Lymph # (Auto) 1.49 (1.32-3.57) K/mm3 Walsh # (Auto) 1.06 H (0.30-0.82) K/mm3 Eos # (Auto) 0.01 L (0.04-0.54) K/mm3 Baso # (Auto) 0.02 (0.01-0.08) K/mm3 Sodium 139 (136-145) mEq/L Potassium 3.9 (3.5-5.1) mEq/L Chloride 105 (98-107) mEq/L Carbon Dioxide 26 (21-32) mEq/L Anion Gap 11.9 (5-15) BUN 14 (7-18) mg/dL Creatinine 1.7 H (0.7-1.3) mg/dL Est Cr Clr Drug Dosing 55.98 mL/min Estimated GFR (MDRD) 43 (>60) mL/min BUN/Creatinine Ratio 8.2 L (14-18) Glucose 100 (74-106) mg/dL Calcium 8.5 (8.5-10.1) mg/dL Magnesium 1.6 L (1.8-2.4) mg/dl Med Orders - Current: Current Medications Acetaminophen (Tylenol) 650 mg PO Q4H PRN PRN Reason: Fever Last Admin: 11/08/16 20:17 Dose: 650 mg Chlordiazepoxide HCl (Librium) 50 mg PO BID [facility] Last Admin: 11/08/16 20:18 Dose: 50 mg Famotidine (Pepcid) 20 mg PO BID [facility] Last Admin: 11/08/16 20:18 Dose: 20 mg Folic Acid (Folic Acid) 1 mg PO DAILY [facility] Last Admin: 11/08/16 11:47 Dose: 1 mg Hydralazine HCl (Apresoline) 20 mg IVPUSH Q4H PRN PRN Reason: sb/p >150 Hydromorphone HCl (Dilaudid) 0.5 mg IVPUSH Q1H PRN PRN Reason: Pain Last Admin: 11/08/16 15:29 Dose: 0.5 mg Sodium Chloride (Normal Saline) 1,000 mls @ 150 mls/hr IV ASDIRECTED [facility] Last Admin: 11/09/16 03:14 Dose: 150 mls/hr Piperacillin Sod/Tazobactam (Sod 4.5 gm/ Sodium Chloride) 100 mls @ 25 mls/hr IV Q8H [facility] Last Admin: 11/09/16 00:18 Dose: 25 mls/hr Lorazepam (Ativan) 2 mg IVPUSH Q4H PRN PRN Reason: Seizures Lorazepam (Ativan) 1 - 3 mg IVPUSH Q4H PRN; Protocol PRN Reason: Withdrawal Symptoms Magnesium Sulfate (Pharmacy To Dose - Magnesium Replacement) 0 dose .XX ASDIRECTED PRN PRN Reason: RX TO MONITOR MAG LEVELS Metoprolol Tartrate (Lopressor) 5 mg IVPUSH Q4H PRN PRN Reason: Tachycardia Miscellaneous Information (Remove Patch) 0 ea TRDERM Q24H [facility] Multivitamins (Thera) 1 each PO DAILY [facility] Last Admin: 11/08/16 11:46 Dose: 1 each Nicotine (Habitrol) 21 mg TRDERM Q24H [facility] Last Admin: 11/08/16 15:30 Dose: 21 mg Ondansetron HCl (Zofran) 4 mg IVPUSH Q8H PRN PRN Reason: Nausea/Vomiting Oxycodone/Acetaminophen (Percocet 325-5 Mg) 1 tab PO Q6H PRN PRN Reason: Pain Last Admin: 11/09/16 07:36 Dose: 1 tab Potassium Chloride (Pharmacy To Dose - Potassium Replacement) 0 dose .XX ASDIRECTED PRN PRN Reason: RX TO MONITOR K LEVELS Quetiapine Fumarate (Seroquel) 50 mg PO BEDTIME [facility] Last Admin: 11/08/16 20:18 Dose: 50 mg Sodium Chloride (Saline Flush) 10 ml FLUSH ASDIRECTED PRN PRN Reason: Keep Vein Open Last Admin: 11/07/16 14:16 Dose: 10 ml Thiamine HCl (Vitamin B-1) 100 mg PO BEDTIME [facility] Last Admin: 11/08/16 20:18 Dose: 100 mg Topiramate (Topamax) 25 mg PO BID [facility] Last Admin: 11/08/16 20:18 Dose: 25 mg Discontinued Medications Acetaminophen (Tylenol) 650 mg PO NOW ONE Stop: 11/08/16 03:14 Last Admin: 11/08/16 03:26 Dose: 650 mg Albuterol (Proventil Neb Soln) 2.5 mg NEB ONETIME ONE Stop: 11/07/16 19:01 Last Admin: 11/07/16 18:30 Dose: 2.5 mg Bupivacaine HCl/Epinephrine Bitart (Marcaine 0.5%/Epinephrine 1:200,000) Confirm Administered Dose 50 ml .ROUTE .STK-MED ONE Stop: 11/07/16 19:24 Last Admin: 11/07/16 20:02 Dose: 12.5 ml Diatrizoate Meglum/Diatrizoate Sod (Gastrografin 37%) 90 ml PO ONETIME ONE Stop: 11/07/16 15:45 Last Admin: 11/07/16 16:23 Dose: 90 ml Diphtheria/Tetanus/Acell Pertussis (Adacel) 0.5 ml IM .ONCE ONE Stop: 11/08/16 00:18 Famotidine (Pepcid) 20 mg IVPUSH ONETIME ONE Stop: 11/07/16 13:36 Last Admin: 11/07/16 14:10 Dose: 20 mg Fentanyl (Sublimaze) Confirm Administered Dose 250 mcg .ROUTE .STK-MED ONE Stop: 11/07/16 17:51 Fentanyl (Sublimaze) 50 mcg IVPUSH Q5M PRN PRN Reason: Pain Fentanyl (Sublimaze) Confirm Administered Dose 100 mcg .ROUTE .STK-MED ONE Stop: 11/07/16 21:29 Glycopyrrolate (Robinul) Confirm Administered Dose 0.4 mg .ROUTE .STK-MED ONE Stop: 11/07/16 21:14 Glycopyrrolate (Robinul) Confirm Administered Dose 0.2 mg .ROUTE .STK-MED ONE Stop: 11/07/16 21:16 Hydromorphone HCl (Dilaudid) 0.5 mg IVPUSH ONETIME ONE Stop: 11/07/16 13:36 Last Admin: 11/07/16 13:47 Dose: 0.5 mg Hydromorphone HCl (Dilaudid) 0.5 mg IVPUSH NOW STA Stop: 11/07/16 16:02 Last Admin: 11/07/16 16:05 Dose: 0.5 mg Hydromorphone HCl (Dilaudid) 0.5 mg IVPUSH ONETIME ONE Stop: 11/07/16 18:02 Last Admin: 11/07/16 18:13 Dose: 0.5 mg Hydromorphone HCl (Dilaudid) 1 mg IVPUSH ONETIME ONE Stop: 11/07/16 18:56 Last Admin: 11/07/16 18:59 Dose: 1 mg Hydromorphone HCl (Dilaudid) Confirm Administered Dose 1 mg .ROUTE .STK-MED ONE Stop: 11/07/16 19:00 Last Admin: 11/08/16 00:20 Dose: Not Given Hydromorphone HCl (Dilaudid) 0.5 mg IVPUSH Q15M PRN PRN Reason: severe pain Stop: 11/07/16 20:36 Sodium Chloride (Normal Saline) 1,000 mls @ 999 mls/hr IV ONETIME [facility] Last Admin: 11/07/16 16:33 Dose: 999 mls/hr Sodium Chloride (Normal Saline) 1,000 mls @ 999 mls/hr IV ONETIME [facility] Sodium Chloride (Normal Saline) 100 mls @ 60 mls/hr IV ASDIRECTED [facility] Last Admin: 11/07/16 16:24 Dose: 60 mls/hr Lidocaine HCl (Xylocaine-Mpf 1%) Confirm Administered Dose 4 mls @ as directed .ROUTE .STK-MED ONE Stop: 11/07/16 17:51 Ertapenem 1 gm/ Sodium (Chloride) 100 mls @ 100 mls/hr IV ONETIME ONE Stop: 11/07/16 18:54 Last Admin: 11/07/16 18:22 Dose: 100 mls/hr Lactated Ringer's (Ringers, Lactated) Confirm Administered Dose 1,000 mls @ as directed .ROUTE .STK-MED ONE Stop: 11/07/16 20:38 Lactated Ringer's (Ringers, Lactated) Confirm Administered Dose 1,000 mls @ as directed .ROUTE .STK-MED ONE Stop: 11/07/16 20:38 Piperacillin Sod/Tazobactam (Sod 4.5 gm/ Sodium Chloride) 100 mls @ 200 mls/hr IV ONETIME ONE Stop: 11/07/16 22:29 Last Admin: 11/08/16 00:34 Dose: 200 mls/hr Magnesium Sulfate 2 gm/ Premix 50 mls @ 25 mls/hr IV ONETIME ONE Stop: 11/08/16 14:59 Last Admin: 11/08/16 12:44 Dose: 25 mls/hr Iopamidol (Isovue-370 (76%)) 100 ml IVPUSH ONETIME ONE Stop: 11/07/16 15:45 Last Admin: 11/07/16 16:24 Dose: 100 ml Ketorolac Tromethamine (Toradol) Confirm Administered Dose 30 mg .ROUTE .STK- MED ONE Stop: 11/07/16 21:35 Lidocaine/Epinephrine (Xylocaine 1% With Epinephrine 1:100,000) Confirm Administered Dose 20 ml .ROUTE .STK-MED ONE Stop: 11/07/16 19:24 Last Admin: 11/07/16 20:02 Dose: 12.5 ml Meperidine HCl (Demerol) 12.5 mg IVPUSH ONETIME PRN PRN Reason: shivering Stop: 11/08/16 20:21 Metoprolol Tartrate (Lopressor) 5 mg IVPUSH Q4H PRN PRN Reason: HR >120 Midazolam HCl (Versed 1 Mg/Ml) Confirm Administered Dose 2 mg .ROUTE .STK-MED ONE Stop: 11/07/16 17:51 Neostigmine Methylsulfate (Neostigmine Methylsulfate) Confirm Administered Dose 10 mg .ROUTE .STK-MED ONE Stop: 11/07/16 21:13 Ondansetron HCl (Zofran) 4 mg IVPUSH ONETIME ONE Stop: 11/07/16 13:36 Last Admin: 11/07/16 14:14 Dose: 4 mg Ondansetron HCl (Zofran) Confirm Administered Dose 4 mg .ROUTE .STK-MED ONE Stop: 11/07/16 17:51 Ondansetron HCl (Zofran) 4 mg IVPUSH ONETIME PRN PRN Reason: Nausea/Vomiting Pneumococcal Polyvalent Vaccine (Pneumovax 23) 0.5 ml IM .ONCE ONE Stop: 11/08/16 00:18 Propofol (Diprivan 20 Ml) Confirm Administered Dose 200 mg .ROUTE .STK-MED ONE Stop: 11/07/16 17:51 Rocuronium [place] (Zemuron) Confirm Administered Dose 50 mg .ROUTE .STK-MED ONE Stop: 11/07/16 17:51 Sodium Chloride (Saline Flush) 10 ml FLUSH ONETIME ONE Stop: 11/07/16 15:45 Last Admin: 11/07/16 16:24 Dose: 10 ml Succinylcholine Chloride (Quelicin) Confirm Administered Dose 200 mg .ROUTE .STK -MED ONE Stop: 11/07/16 21:36 - Exam Wound/Incisions: Dressing Dry and Intact, No Drainage (Small amount and dry) Lungs: Rhonchi GI/Abdominal Exam: Soft, Non-Tender, Other (Some bruising around the umbilicus) - Problem List Review Problem List Initiated/Reviewed/Updated: Yes - My Orders Last 24 Hours: Active Orders 24 hr Category Date Time Status Patient Status [ADT] Routine ADT 11/08/16 13:56 Active CIWAA Assessment [RC] Q4H Care 11/08/16 12:20 Active Notify Provider Consults [RC] ASDIRECTED Care 11/08/16 10:11 Active Notify Provider Consults [RC] ASDIRECTED Care 11/08/16 13:57 Active Telemetry Monitoring [Cardiac Monitoring] [RC] . Care 11/08/16 13:56 Active DIRECTED Consult to Physician [CONS] Routine Cons 11/08/16 10:09 Active Consult to Physician [CONS] Routine Cons 11/08/16 13:56 Active OT Evaluation and Treatment [CONS] Routine Cons 11/08/16 10:36 Active PT Evaluation and Treatment [CONS] Routine Cons 11/08/16 10:36 Active Clear Liquid Diet [DIET] Diet 11/08/16 Breakfast Active CULTURE BLOOD [BC] Stat Lab 11/08/16 20:30 Received CULTURE BLOOD [BC] Stat Lab 11/08/16 20:43 Received Acetaminophen [Tylenol] Med 11/08/16 20:06 Active 650 mg PO Q4H PRN Acetaminophen/oxyCODONE [Percocet 325-5 MG] Med 11/08/16 07:54 Active 1 tab PO Q6H PRN Famotidine [Pepcid] Med 11/08/16 21:00 Active 20 mg PO BID Folic Acid Med 11/08/16 10:45 Active 1 mg PO DAILY LORazepam [Ativan] Med 11/08/16 12:14 Active 1 - 3 mg IVPUSH Q4H PRN LORazepam [Ativan] Med 11/08/16 12:14 Active 2 mg IVPUSH Q4H PRN Magnesium Rep Pharmacy to Dose [Pharmacy to Dose - Med 11/08/16 12:30 Active Magnesium Replacement] 0 dose .XX ASDIRECTED PRN Metoprolol Tartrate [Lopressor] Med 11/08/16 12:14 Active 5 mg IVPUSH Q4H PRN Multivitamins,Therapeutic [Thera] Med 11/08/16 10:45 Active 1 each PO DAILY Nicotine [Habitrol] Med 11/08/16 14:00 Active 21 mg TRDERM Q24H Piperacillin/Tazobactam [Zosyn] 4.5 gm Med 11/08/16 08:00 Active Sodium Chloride 0.9% [Normal Saline] 100 ml IV Q8H Potassium Rep Pharmacy to Dose [Pharmacy to Dose - Med 11/08/16 12:30 Active Potassium Replacement] 0 dose .XX ASDIRECTED PRN QUEtiapine [SEROquel] Med 11/08/16 21:00 Active 50 mg PO BEDTIME Remove Patch Med 11/09/16 14:00 Active 0 ea TRDERM Q24H Thiamine [Vitamin B-1] Med 11/08/16 21:00 Active 100 mg PO BEDTIME Topiramate [Topamax] Med 11/08/16 10:45 Active 25 mg PO BID chlordiazePOXIDE [Librium] Med 11/08/16 10:45 Active 50 mg PO BID hydrALAZINE [Apresoline] Med 11/08/16 10:33 Active 20 mg IVPUSH Q4H PRN Blood Culture x2 Reflex Set [OM.PC] Stat Oth 11/08/16 20:05 Ordered Medication Orders Acetaminophen (Tylenol) 650 mg PO Q4H PRN PRN Reason: Fever Last Admin: 11/08/16 20:17 Dose: 650 mg Chlordiazepoxide HCl (Librium) 50 mg PO BID [facility] Last Admin: 11/08/16 20:18 Dose: 50 mg Admin: 11/08/16 11:47 Dose: 50 mg Famotidine (Pepcid) 20 mg PO BID [facility] Last Admin: 11/08/16 20:18 Dose: 20 mg Folic Acid (Folic Acid) 1 mg PO DAILY [facility] Last Admin: 11/08/16 11:47 Dose: 1 mg Hydralazine HCl (Apresoline) 20 mg IVPUSH Q4H PRN PRN Reason: sb/p >150 Hydromorphone HCl (Dilaudid) 0.5 mg IVPUSH Q1H PRN PRN Reason: Pain Last Admin: 11/08/16 15:29 Dose: 0.5 mg Admin: 11/08/16 09:23 Dose: 0.5 mg Sodium Chloride (Normal Saline) 1,000 mls @ 150 mls/hr IV ASDIRECTED [facility] Last Admin: 11/09/16 03:14 Dose: 150 mls/hr Infusion: 11/09/16 02:57 Dose: 150 mls/hr Admin: 11/08/16 20:16 Dose: 150 mls/hr Infusion: 11/08/16 20:12 Dose: 150 mls/hr Admin: 11/08/16 13:31 Dose: 150 mls/hr Infusion: 11/08/16 13:31 Dose: 150 mls/hr Admin: 11/08/16 06:58 Dose: 150 mls/hr Infusion: 11/08/16 06:58 Dose: 150 mls/hr Admin: 11/08/16 00:34 Dose: 150 mls/hr Piperacillin Sod/Tazobactam (Sod 4.5 gm/ Sodium Chloride) 100 mls @ 25 mls/hr IV Q8H [facility] Last Admin: 11/09/16 00:18 Dose: 25 mls/hr Infusion: 11/08/16 19:29 Dose: 25 mls/hr Admin: 11/08/16 15:29 Dose: 25 mls/hr Infusion: 11/08/16 10:59 Dose: 25 mls/hr Admin: 11/08/16 06:59 Dose: 25 mls/hr Lorazepam (Ativan) 2 mg IVPUSH Q4H PRN PRN Reason: Seizures Lorazepam (Ativan) 1 - 3 mg IVPUSH Q4H PRN; Protocol PRN Reason: Withdrawal Symptoms Magnesium Sulfate (Pharmacy To Dose - Magnesium Replacement) 0 dose .XX ASDIRECTED PRN PRN Reason: RX TO MONITOR MAG LEVELS Metoprolol Tartrate (Lopressor) 5 mg IVPUSH Q4H PRN PRN Reason: Tachycardia Miscellaneous Information (Remove Patch) 0 ea TRDERM Q24H [facility] Multivitamins (Thera) 1 each PO DAILY [facility] Last Admin: 11/08/16 11:46 Dose: 1 each Nicotine (Habitrol) 21 mg TRDERM Q24H [facility] Last Admin: 11/08/16 15:30 Dose: 21 mg Ondansetron HCl (Zofran) 4 mg IVPUSH Q8H PRN PRN Reason: Nausea/Vomiting Oxycodone/Acetaminophen (Percocet 325-5 Mg) 1 tab PO Q6H PRN PRN Reason: Pain Last Admin: 11/09/16 07:36 Dose: 1 tab Admin: 11/08/16 20:18 Dose: 1 tab Admin: 11/08/16 13:31 Dose: 1 tab Admin: 11/08/16 08:37 Dose: 1 tab Potassium Chloride (Pharmacy To Dose - Potassium Replacement) 0 dose .XX ASDIRECTED PRN PRN Reason: RX TO MONITOR K LEVELS Quetiapine Fumarate (Seroquel) 50 mg PO BEDTIME [facility] Last Admin: 11/08/16 20:18 Dose: 50 mg Sodium Chloride (Saline Flush) 10 ml FLUSH ASDIRECTED PRN PRN Reason: Keep Vein Open Last Admin: 11/07/16 14:16 Dose: 10 ml Thiamine HCl (Vitamin B-1) 100 mg PO BEDTIME [facility] Last Admin: 11/08/16 20:18 Dose: 100 mg Topiramate (Topamax) 25 mg PO BID [facility] Last Admin: 11/08/16 20:18 Dose: 25 mg Admin: 11/08/16 11:47 Dose: 25 mg - Assessment Assessment (Free Text/Narrative):: imp: Tolerating liquids without nausea or emesis. Passing gas per rectum. Voiding frequently. He smokes a pack of cigarettes a day and so a cough with sputum production is to be expected. He has a temperature spike once a day at night which resolves with coughing and deep breathing. His white blood cell count has fallen significantly. Overall making progress. We'll clearly need to continue IV antibiotics. Alcohol withdrawal protocol instituted and being followed by the hospitalist. plan: Advance diet. Discontinue IV fluids. He can shower today. We'll have RT assist with pulmonary toilet. Dr. Roberth Ferreira, who is on-call will cover tomorrow, Sunday, and Sunday. I will return Sunday morning.
[2016-11-09] MEDS ORDERED: Sodium Chloride 0.9% 10 ML Syringe FLUSH PRN (07:46)
[2016-11-09] MEDS: HYDROmorphone 0.5 MG/0.5 ML Syringe IVPUSH PRN (08:51)
[2016-11-09] MEDS: Multivitamins,Therapeutic Tab PO SCH (08:53)
[2016-11-09] MEDS: Furosemide 20 MG Tab PO SCH (08:54)
[2016-11-09] MEDS: Magnesium Oxide 400 MG Tab PO SCH (08:54)
[2016-11-09] MEDS: Folic Acid 1 MG Tab PO SCH (08:54)
[2016-11-09] MEDS: Potassium Chloride 20 MEQ Tab.ER PO SCH ×2 (08:54→20:20)
[2016-11-09] MEDS: Famotidine 20 MG Tab PO SCH ×2 (08:54→20:20)
[2016-11-09] MEDS: chlordiazePOXIDE 25 MG Cap PO SCH ×2 (08:55→20:20)
[2016-11-09] MEDS: Topiramate 25 MG Tab PO SCH ×2 (08:55→20:20)
[2016-11-09] MEDS ORDERED: Albuterol/Ipratropium 3.0-0.5 MG/3 ML Neb Soln NEB PRN (09:09)
--- NOTE | 2016-11-09 09:13 | PCM.CONSN ---
- General Info Date of Service: 11/09/16 Admission Dx/Problem (Free Text): Admission Diagnosis/Problem Admission Diagnosis/Problem Appendicitis Patient is Postop day #2 with ruptured appendicitis- s/p appendectomy with Dr. Dutton. Doing well; per primary team, diet advanced. Pain controlled. CIWAA score up to 10 this morning. Ambulating. Passing gas, good appetite. Functional Status: Reports: Pain Controlled, Tolerating Diet, Ambulating, Urinating, Incentive Spirometry. Denies: New Symptoms - Review of Systems General: Reports: Fever (intermittent) HEENT: Reports: No Symptoms Pulmonary: Reports: No Symptoms Cardiovascular: Reports: No Symptoms Gastrointestinal: Reports: Abdominal Pain, Flatus. Denies: Diarrhea, Nausea, Vomiting Genitourinary: Reports: No Symptoms Musculoskeletal: Reports: No Symptoms Skin: Reports: No Symptoms Neurological: Reports: No Symptoms. Denies: Confusion, Dizziness, Headache Psychiatric: Reports: No Symptoms. Denies: Mood Lability, Anxiety, Agitation, Cravings (denies) - Patient Data Vitals - Most Recent: Last Vital Signs Temp 101.1 F H 11/09/16 07:58 Pulse 98 11/09/16 07:58 Resp 14 11/09/16 07:58 BP 147/84 H 11/09/16 07:58 Pulse Ox 95 11/09/16 07:58 Weight - Most Recent: 216 lb 9.6 oz I&O - Last 24 Hours: Intake & Output 11/08/16 11/09/16 11/09/16 22:59 06:59 14:59 Intake Total 4265 2850 Output Total 375 Balance 3890 2850 Lab Results Last 24 Hours: Laboratory Results - last 24 hr 11/08/16 11/08/16 11/08/16 Range/Units 10:47 10:47 10:47 WBC 13.67 H (4.23-9.07) K/mm3 RBC 4.34 L (4.63-6.08) M/mm3 Hgb 13.9 (13.7-17.5) gm/L Hct 42.1 (40.1-51.0) % MCV 97.0 H (79.0-92.2) fl MCH 32.0 (25.7-32.2) pg MCHC 33.0 (32.2-35.5) g/dl RDW Std Deviation 48.9 H (35.1-43.9) fL Plt Count 134 L (163-337) K/mm3 MPV 10.8 (9.4-12.3) fl Neut % (Auto) 80.8 H (34.0-67.9) % Lymph % (Auto) 10.9 L (21.8-53.1) % [place] % (Auto) 7.8 (5.3-12.2) % Eos % (Auto) 0.1 L (0.8-7.0) Baso % (Auto) 0.1 (0.1-1.2) % Neut # (Auto) 11.05 H (1.78-5.38) K/mm3 Lymph # (Auto) 1.49 (1.32-3.57) K/mm3 [place] # (Auto) 1.06 H (0.30-0.82) K/mm3 Eos # (Auto) 0.01 L (0.04-0.54) K/mm3 Baso # (Auto) 0.02 (0.01-0.08) K/mm3 Sodium 139 (136-145) mEq/L Potassium 3.9 (3.5-5.1) mEq/L Chloride 105 (98-107) mEq/L Carbon Dioxide 26 (21-32) mEq/L Anion Gap 11.9 (5-15) BUN 14 (7-18) mg/dL Creatinine 1.7 H (0.7-1.3) mg/dL Est Cr Clr Drug Dosing 55.98 mL/min Estimated GFR (MDRD) 43 (>60) mL/min BUN/Creatinine Ratio 8.2 L (14-18) Glucose 100 (74-106) mg/dL Calcium 8.5 (8.5-10.1) mg/dL Magnesium 1.6 L (1.8-2.4) mg/dl Med Orders - Current: Current Medications Acetaminophen (Tylenol) 650 mg PO Q4H PRN PRN Reason: Fever Last Admin: 11/08/16 20:17 Dose: 650 mg Chlordiazepoxide HCl (Librium) 50 mg PO BID [facility] Last Admin: 11/09/16 08:55 Dose: 50 mg Famotidine (Pepcid) 20 mg PO BID [facility] Last Admin: 11/09/16 08:54 Dose: 20 mg Folic Acid (Folic Acid) 1 mg PO DAILY [facility] Last Admin: 11/09/16 08:54 Dose: 1 mg Furosemide (Lasix) 20 mg PO DAILY [facility] Last Admin: 11/09/16 08:54 Dose: 20 mg Guaifenesin (Mucinex) 600 mg PO BID [facility] Hydralazine HCl (Apresoline) 20 mg IVPUSH Q4H PRN PRN Reason: sb/p >150 Hydromorphone HCl (Dilaudid) 0.5 mg IVPUSH Q1H PRN PRN Reason: Pain Last Admin: 11/09/16 08:51 Dose: 0.5 mg Sodium Chloride (Normal Saline) 1,000 mls @ 150 mls/hr IV ASDIRECTED [facility] Last Admin: 11/09/16 03:14 Dose: 150 mls/hr Piperacillin Sod/Tazobactam (Sod 4.5 gm/ Sodium Chloride) 100 mls @ 25 mls/hr IV Q8H [facility] Last Admin: 11/09/16 08:53 Dose: 25 mls/hr Ketorolac Tromethamine (Toradol) 30 mg IVPUSH Q6H PRN PRN Reason: Pain Lorazepam (Ativan) 2 mg IVPUSH Q4H PRN PRN Reason: Seizures Lorazepam (Ativan) 1 - 3 mg IVPUSH Q4H PRN; Protocol PRN Reason: Withdrawal Symptoms Magnesium Oxide (Magnesium Oxide) 400 mg PO DAILY [facility] Last Admin: 11/09/16 08:54 Dose: 400 mg Magnesium Sulfate (Pharmacy To Dose - Magnesium Replacement) 0 dose .XX ASDIRECTED PRN PRN Reason: RX TO MONITOR MAG LEVELS Metoprolol Tartrate (Lopressor) 5 mg IVPUSH Q4H PRN PRN Reason: Tachycardia Miscellaneous Information (Remove Patch) 0 ea TRDERM Q24H [facility] Multivitamins (Thera) 1 each PO DAILY [facility] Last Admin: 11/09/16 08:53 Dose: 1 each Nicotine (Habitrol) 21 mg TRDERM Q24H [facility] Last Admin: 11/08/16 15:30 Dose: 21 mg Ondansetron HCl (Zofran) 4 mg IVPUSH Q8H PRN PRN Reason: Nausea/Vomiting Oxycodone/Acetaminophen (Percocet 325-5 Mg) 1 tab PO Q6H PRN PRN Reason: Pain Last Admin: 11/09/16 07:36 Dose: 1 tab Potassium Chloride (Pharmacy To Dose - Potassium Replacement) 0 dose .XX ASDIRECTED PRN PRN Reason: RX TO MONITOR K LEVELS Potassium Chloride (Klor-Con M20) 20 meq PO BID [facility] Last Admin: 11/09/16 08:54 Dose: 20 meq Quetiapine Fumarate (Seroquel) 50 mg PO BEDTIME [facility] Last Admin: 11/08/16 20:18 Dose: 50 mg Sodium Chloride (Saline Flush) 10 ml FLUSH ASDIRECTED PRN PRN Reason: Keep Vein Open Thiamine HCl (Vitamin B-1) 100 mg PO BEDTIME [facility] Last Admin: 11/08/16 20:18 Dose: 100 mg Topiramate (Topamax) 25 mg PO BID [facility] Last Admin: 11/09/16 08:55 Dose: 25 mg Discontinued Medications Acetaminophen (Tylenol) 650 mg PO NOW ONE Stop: 11/08/16 03:14 Last Admin: 11/08/16 03:26 Dose: 650 mg Albuterol (Proventil Neb Soln) 2.5 mg NEB ONETIME ONE Stop: 11/07/16 19:01 Last Admin: 11/07/16 18:30 Dose: 2.5 mg Bupivacaine HCl/Epinephrine Bitart (Marcaine 0.5%/Epinephrine 1:200,000) Confirm Administered Dose 50 ml .ROUTE .STK-MED ONE Stop: 11/07/16 19:24 Last Admin: 11/07/16 20:02 Dose: 12.5 ml Diatrizoate Meglum/Diatrizoate Sod (Gastrografin 37%) 90 ml PO ONETIME ONE Stop: 11/07/16 15:45 Last Admin: 11/07/16 16:23 Dose: 90 ml Diphtheria/Tetanus/Acell Pertussis (Adacel) 0.5 ml IM .ONCE ONE Stop: 11/08/16 00:18 Famotidine (Pepcid) 20 mg IVPUSH ONETIME ONE Stop: 11/07/16 13:36 Last Admin: 11/07/16 14:10 Dose: 20 mg Fentanyl (Sublimaze) Confirm Administered Dose 250 mcg .ROUTE .STK-MED ONE Stop: 11/07/16 17:51 Fentanyl (Sublimaze) 50 mcg IVPUSH Q5M PRN PRN Reason: Pain Fentanyl (Sublimaze) Confirm Administered Dose 100 mcg .ROUTE .STK-MED ONE Stop: 11/07/16 21:29 Glycopyrrolate (Robinul) Confirm Administered Dose 0.4 mg .ROUTE .STK-MED ONE Stop: 11/07/16 21:14 Glycopyrrolate (Robinul) Confirm Administered Dose 0.2 mg .ROUTE .STK-MED ONE Stop: 11/07/16 21:16 Hydromorphone HCl (Dilaudid) 0.5 mg IVPUSH ONETIME ONE Stop: 11/07/16 13:36 Last Admin: 11/07/16 13:47 Dose: 0.5 mg Hydromorphone HCl (Dilaudid) 0.5 mg IVPUSH NOW STA Stop: 11/07/16 16:02 Last Admin: 11/07/16 16:05 Dose: 0.5 mg Hydromorphone HCl (Dilaudid) 0.5 mg IVPUSH ONETIME ONE Stop: 11/07/16 18:02 Last Admin: 11/07/16 18:13 Dose: 0.5 mg Hydromorphone HCl (Dilaudid) 1 mg IVPUSH ONETIME ONE Stop: 11/07/16 18:56 Last Admin: 11/07/16 18:59 Dose: 1 mg Hydromorphone HCl (Dilaudid) Confirm Administered Dose 1 mg .ROUTE .STK-MED ONE Stop: 11/07/16 19:00 Last Admin: 11/08/16 00:20 Dose: Not Given Hydromorphone HCl (Dilaudid) 0.5 mg IVPUSH Q15M PRN PRN Reason: severe pain Stop: 11/07/16 20:36 Sodium Chloride (Normal Saline) 1,000 mls @ 999 mls/hr IV ONETIME [facility] Last Admin: 11/07/16 16:33 Dose: 999 mls/hr Sodium Chloride (Normal Saline) 1,000 mls @ 999 mls/hr IV ONETIME [facility] Sodium Chloride (Normal Saline) 100 mls @ 60 mls/hr IV ASDIRECTED [facility] Last Admin: 11/07/16 16:24 Dose: 60 mls/hr Lidocaine HCl (Xylocaine-Mpf 1%) Confirm Administered Dose 4 mls @ as directed .ROUTE .STK-MED ONE Stop: 11/07/16 17:51 Ertapenem 1 gm/ Sodium (Chloride) 100 mls @ 100 mls/hr IV ONETIME ONE Stop: 11/07/16 18:54 Last Admin: 11/07/16 18:22 Dose: 100 mls/hr Lactated Ringer's (Ringers, Lactated) Confirm Administered Dose 1,000 mls @ as directed .ROUTE .STK-MED ONE Stop: 11/07/16 20:38 Lactated Ringer's (Ringers, Lactated) Confirm Administered Dose 1,000 mls @ as directed .ROUTE .STK-MED ONE Stop: 11/07/16 20:38 Piperacillin Sod/Tazobactam (Sod 4.5 gm/ Sodium Chloride) 100 mls @ 200 mls/hr IV ONETIME ONE Stop: 11/07/16 22:29 Last Admin: 11/08/16 00:34 Dose: 200 mls/hr Magnesium Sulfate 2 gm/ Premix 50 mls @ 25 mls/hr IV ONETIME ONE Stop: 11/08/16 14:59 Last Admin: 11/08/16 12:44 Dose: 25 mls/hr Iopamidol (Isovue-370 (76%)) 100 ml IVPUSH ONETIME ONE Stop: 11/07/16 15:45 Last Admin: 11/07/16 16:24 Dose: 100 ml Ketorolac Tromethamine (Toradol) Confirm Administered Dose 30 mg .ROUTE .STK- MED ONE Stop: 11/07/16 21:35 Lidocaine/Epinephrine (Xylocaine 1% With Epinephrine 1:100,000) Confirm Administered Dose 20 ml .ROUTE .STK-MED ONE Stop: 11/07/16 19:24 Last Admin: 11/07/16 20:02 Dose: 12.5 ml Meperidine HCl (Demerol) 12.5 mg IVPUSH ONETIME PRN PRN Reason: shivering Stop: 11/08/16 20:21 Metoprolol Tartrate (Lopressor) 5 mg IVPUSH Q4H PRN PRN Reason: HR >120 Midazolam HCl (Versed 1 Mg/Ml) Confirm Administered Dose 2 mg .ROUTE .STK-MED ONE Stop: 11/07/16 17:51 Neostigmine Methylsulfate (Neostigmine Methylsulfate) Confirm Administered Dose 10 mg .ROUTE .STK-MED ONE Stop: 11/07/16 21:13 Ondansetron HCl (Zofran) 4 mg IVPUSH ONETIME ONE Stop: 11/07/16 13:36 Last Admin: 11/07/16 14:14 Dose: 4 mg Ondansetron HCl (Zofran) Confirm Administered Dose 4 mg .ROUTE .STK-MED ONE Stop: 11/07/16 17:51 Ondansetron HCl (Zofran) 4 mg IVPUSH ONETIME PRN PRN Reason: Nausea/Vomiting Pneumococcal Polyvalent Vaccine (Pneumovax 23) 0.5 ml IM .ONCE ONE Stop: 11/08/16 00:18 Propofol (Diprivan 20 Ml) Confirm Administered Dose 200 mg .ROUTE .STK-MED ONE Stop: 11/07/16 17:51 Rocuronium [place] (Zemuron) Confirm Administered Dose 50 mg .ROUTE .STK-MED ONE Stop: 11/07/16 17:51 Sodium Chloride (Saline Flush) 10 ml FLUSH ASDIRECTED PRN PRN Reason: Keep Vein Open Last Admin: 11/07/16 14:16 Dose: 10 ml Sodium Chloride (Saline Flush) 10 ml FLUSH ONETIME ONE Stop: 11/07/16 15:45 Last Admin: 11/07/16 16:24 Dose: 10 ml Succinylcholine Chloride (Quelicin) Confirm Administered Dose 200 mg .ROUTE .STK -MED ONE Stop: 11/07/16 21:36 - Exam Quality Assessment: DVT Prophylaxis General: Alert, Oriented, Cooperative, No Acute Distress HEENT: Pupils Equal, Pupils Reactive, EOMI, Mucous Membr. Moist/[place] Neck: Supple Lungs: Normal Respiratory Effort, Decreased Breath Sounds (bases), Wheezing ( scattered with expiration) Cardiovascular: Regular Rate, Regular Rhythm GI/Abdominal Exam: Normal Bowel Sounds (hypoactive but present), Soft, Tender ( improved from yesterday; diffuse) (Male) Exam: Deferred Extremities: Normal Inspection Peripheral Pulses: 2+: Dorsalis Pedis (L), Dorsalis Pedis (R) Neurological: No New Focal Deficit Psy/Mental Status: Alert, Normal Affect, Normal Mood. No: Labile Mood, Anxious , Agitated, Withdrawal Symptoms Consult PN Assessment/Plan POD#: 2 (1) Appendicitis SNOMED Code(s): 15312833 Code(s): K37 - UNSPECIFIED APPENDICITIS Current Visit: Yes Qualifiers: Qualified Code(s): K35.80 - Unspecified acute appendicitis Problem List Initiated/Reviewed/Updated: Yes My Orders Last 24 Hours: My Active Orders 11/08/16 10:33 hydrALAZINE [Apresoline] 20 mg IVPUSH Q4H PRN 11/08/16 10:36 OT Evaluation and Treatment [CONS] Routine PT Evaluation and Treatment [CONS] Routine 11/08/16 10:45 Folic Acid 1 mg PO DAILY Multivitamins,Therapeutic [Thera] 1 each PO DAILY Topiramate [Topamax] 25 mg PO BID chlordiazePOXIDE [Librium] 50 mg PO BID 11/08/16 13:56 Telemetry Monitoring [Cardiac Monitoring] [RC] . DIRECTED Consult to Physician [CONS] Routine 11/08/16 13:57 Notify Provider Consults [RC] ASDIRECTED 11/08/16 14:00 Nicotine [Habitrol] 21 mg TRDERM Q24H 11/08/16 21:00 Famotidine [Pepcid] 20 mg PO BID QUEtiapine [SEROquel] 50 mg PO BEDTIME Thiamine [Vitamin B-1] 100 mg PO BEDTIME 11/09/16 09:07 BASIC METABOLIC PANEL,BMP [CHEM] Routine CBC WITH AUTO DIFF [HEME] Routine MAGNESIUM [CHEM] Routine 11/09/16 09:09 Albuterol/Ipratropium [DuoNeb 3.0-0.5 MG/3 ML] 3 ml NEB Q6HRRT PRN 11/09/16 09:10 RT Aerosol Therapy [RC] ASDIRECTED 11/09/16 09:15 guaiFENesin [Mucinex] 600 mg PO BID 11/09/16 14:00 Remove Patch 0 ea TRDERM Q24H Plan: A/P: S/P Appendectomy with ruptured appendix; General Surgeon, Dr. Dutton-- Primary Attending -POD #2 -Postoperative Surgical Care per Dr. Dutton -Pain management per Dr Dutton -DVT prophylax per Dr. Dutton -Diet per Dr. Dutton Alcohol use disorder -CIWA Protocol -admits to 3-4 mixed drinks 3-4 nights per week -Librium, Topamax, Seroquel -Hydralazine and Lopressor PRN for parameters as ordered -Urine drug screen and blood alcohol levels to be done on initial blood and UA collected---both negative -Dr. Christopher consult for Substance use/abuse evaluation Toabacco use disorder -Nicotine patch -RT/IS and Duoneb PRN -Mucinex BID for sputum Other: GI prophylax PT/OT eval/tx CM/SW for assist with DC planning Patient with minimal withdrawl symptoms, will cont to follow. Patient is Full Code status.
[2016-11-09] MEDS: guaiFENesin 600 MG Tab.ER PO SCH ×2 (09:38→20:20)
[2016-11-09] MEDS: Ketorolac 30 MG/ML SDV IVPUSH PRN (12:50)
[2016-11-09] MEDS: Nicotine 21 MG/24 Hr Patch TRDERM SCH ×2 (12:51→14:21)
[2016-11-09] MEDS: QUEtiapine 25 MG Tab PO SCH (20:20)
[2016-11-09] MEDS: Thiamine 100 MG Tab PO SCH (20:20)
[2016-11-10] MEDS: Piperacillin/Tazobactam 4.5 GM in Sodium Chloride 0.9% 100 ML IV SCH ×3 (00:16→17:36)
[2016-11-10] MEDS: Ketorolac 30 MG/ML SDV IVPUSH PRN (00:16)
[2016-11-10] MEDS: Acetaminophen/oxyCODONE 325-5 MG Tab PO PRN (06:11)
[2016-11-10] MEDS ORDERED: Magnesium Hydroxide 400 MG/5 ML Susp 30 ML Cup PO ONE (06:18)
--- NOTE | 2016-11-10 08:25 | PCM.SURGPN ---
- General Info Date of Service: 11/10/16 Functional Status: Reports: Pain Controlled - Review of Systems General: Reports: No Symptoms Pulmonary: Reports: No Symptoms Cardiovascular: Reports: No Symptoms Gastrointestinal: Reports: No Symptoms - Patient Data Vitals - Most Recent: Last Vital Signs Temp 98.8 F 11/10/16 07:31 Pulse 77 11/10/16 07:31 Resp 14 11/10/16 07:31 BP 118/82 11/10/16 07:31 Pulse Ox 99 11/10/16 07:31 Weight - Most Recent: 95.527 kg I&O - Last 24 Hours: Intake & Output 11/09/16 11/10/16 11/10/16 23:59 07:59 15:59 Intake Total 1090 200 Output Total 300 Balance 1090 -100 Lab Results Last 24 Hrs: Laboratory Results - last 24 hr 11/09/16 11/09/16 Range/Units 09:28 09:28 WBC 11.63 H (4.23-9.07) K/mm3 RBC 4.49 L (4.63-6.08) M/mm3 Hgb 14.4 (13.7-17.5) gm/L Hct 43.3 (40.1-51.0) % MCV 96.4 H (79.0-92.2) fl MCH 32.1 (25.7-32.2) pg MCHC 33.3 (32.2-35.5) g/dl RDW Std Deviation 49.1 H (35.1-43.9) fL Plt Count 146 L (163-337) K/mm3 MPV 10.8 (9.4-12.3) fl Neut % (Auto) 81.1 H (34.0-67.9) % Lymph % (Auto) 11.6 L (21.8-53.1) % [place] % (Auto) 6.6 (5.3-12.2) % Eos % (Auto) 0.3 L (0.8-7.0) Baso % (Auto) 0.2 (0.1-1.2) % Neut # (Auto) 9.44 H (1.78-5.38) K/mm3 Lymph # (Auto) 1.35 (1.32-3.57) K/mm3 [place] # (Auto) 0.77 (0.30-0.82) K/mm3 Eos # (Auto) 0.03 L (0.04-0.54) K/mm3 Baso # (Auto) 0.02 (0.01-0.08) K/mm3 Sodium 139 (136-145) mEq/L Potassium 3.6 (3.5-5.1) mEq/L Chloride 107 (98-107) mEq/L Carbon Dioxide 23 (21-32) mEq/L Anion Gap 12.6 (5-15) BUN 9 (7-18) mg/dL Creatinine 1.6 H (0.7-1.3) mg/dL Est Cr Clr Drug Dosing 59.48 mL/min Estimated GFR (MDRD) 46 (>60) mL/min BUN/Creatinine Ratio 5.6 L (14-18) Glucose 96 (74-106) mg/dL Calcium 8.5 (8.5-10.1) mg/dL Magnesium 2.2 (1.8-2.4) mg/dl Elmer Results Last 24 Hrs: Microbiology 11/08/16 20:30 Aerobic Blood Culture - Preliminary Blood - Venous - Lab Draw NO GROWTH AFTER 1 DAY Anaerobic Blood Culture - Preliminary NO GROWTH AFTER 1 DAY 11/08/16 20:43 Aerobic Blood Culture - Preliminary Blood - Venous NO GROWTH AFTER 1 DAY Anaerobic Blood Culture - Preliminary NO GROWTH AFTER 1 DAY Med Orders - Current: Current Medications Acetaminophen (Tylenol) 650 mg PO Q4H PRN PRN Reason: Fever Last Admin: 11/08/16 20:17 Dose: 650 mg Hydrocodone Bitart/Acetaminophen ([place] 325-5 Mg) 1 tab PO Q6H PRN PRN Reason: Pain Albuterol/Ipratropium (Duoneb 3.0-0.5 Mg/3 Ml) 3 ml NEB Q6HRRT PRN PRN Reason: wheezing/SOB/cough Chlordiazepoxide HCl (Librium) [address] [facility] Last Admin: 11/09/16 20:20 Dose: 50 mg Famotidine (Pepcid) [address] [facility] Last Admin: 11/09/16 20:20 Dose: 20 mg Folic Acid (Folic Acid) [address] [facility] Last Admin: 11/09/16 08:54 Dose: 1 mg Furosemide (Lasix) [address] [facility] Last Admin: 11/09/16 08:54 Dose: 20 mg Guaifenesin (Mucinex) [address] [facility] Last Admin: 11/09/16 20:20 Dose: 600 mg Hydralazine HCl (Apresoline) 20 mg IVPUSH Q4H PRN PRN Reason: sb/p >150 Piperacillin Sod/Tazobactam (Sod 4.5 gm/ Sodium Chloride) 100 mls @ 25 mls/hr IV Q8H [facility] Last Admin: 11/10/16 00:16 Dose: 25 mls/hr Lorazepam (Ativan) 2 mg IVPUSH Q4H PRN PRN Reason: Seizures Lorazepam (Ativan) 1 - 3 mg IVPUSH Q4H PRN; Protocol PRN Reason: Withdrawal Symptoms Magnesium Oxide (Magnesium Oxide) [address] [facility] Last Admin: 11/09/16 08:54 Dose: 400 mg Magnesium Sulfate (Pharmacy To Dose - Magnesium Replacement) 0 dose .XX ASDIRECTED PRN PRN Reason: RX TO MONITOR MAG LEVELS Metoprolol Tartrate (Lopressor) 5 mg IVPUSH Q4H PRN PRN Reason: Tachycardia Miscellaneous Information (Remove Patch) [address] [facility] Last Admin: 11/09/16 17:21 Dose: Not Given Multivitamins (Thera) [address] [facility] Last Admin: 11/09/16 08:53 Dose: 1 each Nicotine (Habitrol) [address] [facility] Last Admin: 11/09/16 14:21 Dose: Not Given Ondansetron HCl (Zofran) 4 mg IVPUSH Q8H PRN PRN Reason: Nausea/Vomiting Potassium Chloride (Pharmacy To Dose - Potassium Replacement) 0 dose .XX ASDIRECTED PRN PRN Reason: RX TO MONITOR K LEVELS Potassium Chloride (Klor-Con M20) [address] [facility] Last Admin: 11/09/16 20:20 Dose: 20 meq Quetiapine Fumarate (Seroquel) [address] [facility] Last Admin: 11/09/16 20:20 Dose: 50 mg Sodium Chloride (Saline Flush) 10 ml FLUSH ASDIRECTED PRN PRN Reason: Keep Vein Open Thiamine HCl (Vitamin B-1) [address] [facility] Last Admin: 11/09/16 20:20 Dose: 100 mg Topiramate (Topamax) [address] [facility] Last Admin: 11/09/16 20:20 Dose: 25 mg Discontinued Medications Acetaminophen (Tylenol) 650 mg PO NOW ONE Stop: 11/08/16 03:14 Last Admin: 11/08/16 03:26 Dose: 650 mg Albuterol (Proventil Neb Soln) 2.5 mg NEB ONETIME ONE Stop: 11/07/16 19:01 Last Admin: 11/07/16 18:30 Dose: 2.5 mg Bupivacaine HCl/Epinephrine Bitart (Marcaine 0.5%/Epinephrine 1:200,000) Confirm Administered Dose 50 ml .ROUTE .STK-MED ONE Stop: 11/07/16 19:24 Last Admin: 11/07/16 20:02 Dose: 12.5 ml Diatrizoate Meglum/Diatrizoate Sod (Gastrografin 37%) 90 ml PO ONETIME ONE Stop: 11/07/16 15:45 Last Admin: 11/07/16 16:23 Dose: 90 ml Diphtheria/Tetanus/Acell Pertussis (Adacel) 0.5 ml IM .ONCE ONE Stop: 11/08/16 00:18 Famotidine (Pepcid) 20 mg IVPUSH ONETIME ONE Stop: 11/07/16 13:36 Last Admin: 11/07/16 14:10 Dose: 20 mg Fentanyl (Sublimaze) Confirm Administered Dose 250 mcg .ROUTE .STK-MED ONE Stop: 11/07/16 17:51 Fentanyl (Sublimaze) 50 mcg IVPUSH Q5M PRN PRN Reason: Pain Fentanyl (Sublimaze) Confirm Administered Dose 100 mcg .ROUTE .STK-MED ONE Stop: 11/07/16 21:29 Glycopyrrolate (Robinul) Confirm Administered Dose 0.4 mg .ROUTE .STK-MED ONE Stop: 11/07/16 21:14 Glycopyrrolate (Robinul) Confirm Administered Dose 0.2 mg .ROUTE .STK-MED ONE Stop: 11/07/16 21:16 Hydromorphone HCl (Dilaudid) 0.5 mg IVPUSH ONETIME ONE Stop: 11/07/16 13:36 Last Admin: 11/07/16 13:47 Dose: 0.5 mg Hydromorphone HCl (Dilaudid) 0.5 mg IVPUSH NOW STA Stop: 11/07/16 16:02 Last Admin: 11/07/16 16:05 Dose: 0.5 mg Hydromorphone HCl (Dilaudid) 0.5 mg IVPUSH ONETIME ONE Stop: 11/07/16 18:02 Last Admin: 11/07/16 18:13 Dose: 0.5 mg Hydromorphone HCl (Dilaudid) 1 mg IVPUSH ONETIME ONE Stop: 11/07/16 18:56 Last Admin: 11/07/16 18:59 Dose: 1 mg Hydromorphone HCl (Dilaudid) Confirm Administered Dose 1 mg .ROUTE .STK-MED ONE Stop: 11/07/16 19:00 Last Admin: 11/08/16 00:20 Dose: Not Given Hydromorphone HCl (Dilaudid) 0.5 mg IVPUSH Q15M PRN PRN Reason: severe pain Stop: 11/07/16 20:36 Hydromorphone HCl (Dilaudid) 0.5 mg IVPUSH Q1H PRN PRN Reason: Pain Last Admin: 11/09/16 08:51 Dose: 0.5 mg Sodium Chloride (Normal Saline) 1,000 mls @ 999 mls/hr IV ONETIME [facility] Last Admin: 11/07/16 16:33 Dose: 999 mls/hr Sodium Chloride (Normal Saline) 1,000 mls @ 999 mls/hr IV ONETIME [facility] Sodium Chloride (Normal Saline) 100 mls @ 60 mls/hr IV ASDIRECTED [facility] Last Admin: 11/07/16 16:24 Dose: 60 mls/hr Lidocaine HCl (Xylocaine-Mpf 1%) Confirm Administered Dose 4 mls @ as directed .ROUTE .STK-MED ONE Stop: 11/07/16 17:51 Ertapenem 1 gm/ Sodium (Chloride) 100 mls @ 100 mls/hr IV ONETIME ONE Stop: 11/07/16 18:54 Last Admin: 11/07/16 18:22 Dose: 100 mls/hr Lactated Ringer's (Ringers, Lactated) Confirm Administered Dose 1,000 mls @ as directed .ROUTE .STK-MED ONE Stop: 11/07/16 20:38 Lactated Ringer's (Ringers, Lactated) Confirm Administered Dose 1,000 mls @ as directed .ROUTE .STK-MED ONE Stop: 11/07/16 20:38 Sodium Chloride (Normal Saline) 1,000 mls @ 150 mls/hr IV ASDIRECTED [facility] Last Admin: 11/09/16 03:14 Dose: 150 mls/hr Piperacillin Sod/Tazobactam (Sod 4.5 gm/ Sodium Chloride) 100 mls @ 200 mls/hr IV ONETIME ONE Stop: 11/07/16 22:29 Last Admin: 11/08/16 00:34 Dose: 200 mls/hr Magnesium Sulfate 2 gm/ Premix 50 mls @ 25 mls/hr IV ONETIME ONE Stop: 11/08/16 14:59 Last Admin: 11/08/16 12:44 Dose: 25 mls/hr Iopamidol (Isovue-370 (76%)) 100 ml IVPUSH ONETIME ONE Stop: 11/07/16 15:45 Last Admin: 11/07/16 16:24 Dose: 100 ml Ketorolac Tromethamine (Toradol) Confirm Administered Dose 30 mg .ROUTE .STK- MED ONE Stop: 11/07/16 21:35 Ketorolac Tromethamine (Toradol) 30 mg IVPUSH Q6H PRN PRN Reason: Pain Last Admin: 11/10/16 00:16 Dose: 30 mg Lidocaine/Epinephrine (Xylocaine 1% With Epinephrine 1:100,000) Confirm Administered Dose 20 ml .ROUTE .STK-MED ONE Stop: 11/07/16 19:24 Last Admin: 11/07/16 20:02 Dose: 12.5 ml Magnesium Hydroxide (Milk Of Magnesia) 30 ml PO ONETIME ONE Stop: 11/10/16 06:19 Last Admin: 11/10/16 06:39 Dose: 30 ml Meperidine HCl (Demerol) 12.5 mg IVPUSH ONETIME PRN PRN Reason: shivering Stop: 11/08/16 20:21 Metoprolol Tartrate (Lopressor) 5 mg IVPUSH Q4H PRN PRN Reason: HR >120 Midazolam HCl (Versed 1 Mg/Ml) Confirm Administered Dose 2 mg .ROUTE .STK-MED ONE Stop: 11/07/16 17:51 Neostigmine Methylsulfate (Neostigmine Methylsulfate) Confirm Administered Dose 10 mg .ROUTE .STK-MED ONE Stop: 11/07/16 21:13 Ondansetron HCl (Zofran) 4 mg IVPUSH ONETIME ONE Stop: 11/07/16 13:36 Last Admin: 11/07/16 14:14 Dose: 4 mg Ondansetron HCl (Zofran) Confirm Administered Dose 4 mg .ROUTE .STK-MED ONE Stop: 11/07/16 17:51 Ondansetron HCl (Zofran) 4 mg IVPUSH ONETIME PRN PRN Reason: Nausea/Vomiting Oxycodone/Acetaminophen (Percocet 325-5 Mg) 1 tab PO Q6H PRN PRN Reason: Pain Last Admin: 11/10/16 06:11 Dose: 1 tab Pneumococcal Polyvalent Vaccine (Pneumovax 23) 0.5 ml IM .ONCE ONE Stop: 11/08/16 00:18 Propofol (Diprivan 20 Ml) Confirm Administered Dose 200 mg .ROUTE .STK-MED ONE Stop: 11/07/16 17:51 Rocuronium Mallie (Zemuron) Confirm Administered Dose 50 mg .ROUTE .STK-MED ONE Stop: 11/07/16 17:51 Sodium Chloride (Saline Flush) 10 ml FLUSH ASDIRECTED PRN PRN Reason: Keep Vein Open Last Admin: 11/07/16 14:16 Dose: 10 ml Sodium Chloride (Saline Flush) 10 ml FLUSH ONETIME ONE Stop: 11/07/16 15:45 Last Admin: 11/07/16 16:24 Dose: 10 ml Succinylcholine Chloride (Quelicin) Confirm Administered Dose 200 mg .ROUTE .STK -MED ONE Stop: 11/07/16 21:36 - Exam Lungs: Clear to Auscultation, Normal Respiratory Effort Cardiovascular: Regular Rate, Regular Rhythm GI/Abdominal Exam: Normal Bowel Sounds, Soft, Non-Tender, No Organomegaly, No Distention, No Abnormal Bruit, No Mass, Pelvis Stable - Problem List Review Problem List Initiated/Reviewed/Updated: Yes - My Orders Last 24 Hours: Active Orders 24 hr Category Date Time Status Communication Order [RC] ROUTINE Care 11/09/16 07:49 Active Communication Order [RC] ROUTINE Care 11/09/16 13:38 Active May Shower [RC] ASDIRECTED Care 11/09/16 07:46 Active RT Aerosol Therapy [RC] ASDIRECTED Care 11/09/16 09:10 Active Consult to Respiratory Therapy [Respiratory Care Assess Cons 11/09/16 07:48 Active and Treatment] [CONS] Routine Regular Diet [DIET] Diet 11/09/16 Lunch Active CBC W/O DIFF,HEMOGRAM [HEME] MOTH@0700 Lab 11/13/16 07:00 Ordered CBC W/O DIFF,HEMOGRAM [HEME] MOTH@0700 Lab 11/16/16 07:00 Ordered CBC W/O DIFF,HEMOGRAM [HEME] MOTH@0700 Lab 11/20/16 07:00 Ordered CBC W/O DIFF,HEMOGRAM [HEME] MOTH@0700 Lab 11/23/16 07:00 Ordered CBC W/O DIFF,HEMOGRAM [HEME] MOTH@0700 Lab 11/27/16 07:00 Ordered CBC W/O DIFF,HEMOGRAM [HEME] MOTH@0700 Lab 11/30/16 07:00 Ordered Acetaminophen/HYDROcodone [[place] 325-5 MG] Med 11/10/16 08:21 Ordered 1 tab PO Q6H PRN Albuterol/Ipratropium [DuoNeb 3.0-0.5 MG/3 ML] Med 11/09/16 09:09 Active 3 ml NEB Q6HRRT PRN Furosemide [Lasix] Med 11/09/16 09:00 Active 20 mg PO DAILY Heparin Sodium Med 11/10/16 09:00 Ordered 5,000 units SUBCUT Q12HR Magnesium Oxide Med 11/09/16 09:00 Active 400 mg PO DAILY Potassium Chloride [Klor-Con M20] Med 11/09/16 09:00 Active 20 meq PO BID Remove Patch Med 11/09/16 14:00 Active 0 ea TRDERM Q24H Sodium Chloride 0.9% [Saline Flush] Med 11/09/16 07:46 Active 10 ml FLUSH ASDIRECTED PRN guaiFENesin [Mucinex] Med 11/09/16 09:15 Active 600 mg PO BID Convert IV to Saline Lock [OM.PC] Routine Oth 11/09/16 07:46 Ordered Peripheral IV Discontinue [OM.PC] Routine Oth 11/09/16 07:45 Ordered Medication Orders Acetaminophen (Tylenol) 650 mg PO Q4H PRN PRN Reason: Fever Last Admin: 11/08/16 20:17 Dose: 650 mg Hydrocodone Bitart/Acetaminophen ([place] 325-5 Mg) 1 tab PO Q6H PRN PRN Reason: Pain Albuterol/Ipratropium (Duoneb 3.0-0.5 Mg/3 Ml) 3 ml NEB Q6HRRT PRN PRN Reason: wheezing/SOB/cough Chlordiazepoxide HCl (Librium) [address] [facility] Last Admin: 11/09/16 20:20 Dose: 50 mg Admin: 11/09/16 08:55 Dose: 50 mg Admin: 11/08/16 20:18 Dose: 50 mg Admin: 11/08/16 11:47 Dose: 50 mg Famotidine (Pepcid) [address] [facility] Last Admin: 11/09/16 20:20 Dose: 20 mg Admin: 11/09/16 08:54 Dose: 20 mg Admin: 11/08/16 20:18 Dose: 20 mg Folic Acid (Folic Acid) [address] [facility] Last Admin: 11/09/16 08:54 Dose: 1 mg Admin: 11/08/16 11:47 Dose: 1 mg Furosemide (Lasix) [address] [facility] Last Admin: 11/09/16 08:54 Dose: 20 mg Guaifenesin (Mucinex) [address] [facility] Last Admin: 11/09/16 20:20 Dose: 600 mg Admin: 11/09/16 09:38 Dose: 600 mg Hydralazine HCl (Apresoline) 20 mg IVPUSH Q4H PRN PRN Reason: sb/p >150 Piperacillin Sod/Tazobactam (Sod 4.5 gm/ Sodium Chloride) 100 mls @ 25 mls/hr IV Q8H [facility] Last Admin: 11/10/16 00:16 Dose: 25 mls/hr Infusion: 11/09/16 20:13 Dose: 25 mls/hr Admin: 11/09/16 16:13 Dose: 25 mls/hr Infusion: 11/09/16 12:53 Dose: 25 mls/hr Admin: 11/09/16 08:53 Dose: 25 mls/hr Infusion: 11/09/16 04:18 Dose: 25 mls/hr Admin: 11/09/16 00:18 Dose: 25 mls/hr Infusion: 11/08/16 19:29 Dose: 25 mls/hr Admin: 11/08/16 15:29 Dose: 25 mls/hr Infusion: 11/08/16 10:59 Dose: 25 mls/hr Admin: 11/08/16 06:59 Dose: 25 mls/hr Lorazepam (Ativan) 2 mg IVPUSH Q4H PRN PRN Reason: Seizures Lorazepam (Ativan) 1 - 3 mg IVPUSH Q4H PRN; Protocol PRN Reason: Withdrawal Symptoms Magnesium Oxide (Magnesium Oxide) [address] [facility] Last Admin: 11/09/16 08:54 Dose: 400 mg Magnesium Sulfate (Pharmacy To Dose - Magnesium Replacement) 0 dose .XX ASDIRECTED PRN PRN Reason: RX TO MONITOR MAG LEVELS Metoprolol Tartrate (Lopressor) 5 mg IVPUSH Q4H PRN PRN Reason: Tachycardia Miscellaneous Information (Remove Patch) [address] [facility] Last Admin: 11/09/16 17:21 Dose: Multivitamins (Thera) [address] [facility] Last Admin: 11/09/16 08:53 Dose: 1 each Admin: 11/08/16 11:46 Dose: 1 each Nicotine (Habitrol) [address] [facility] Last Admin: 11/09/16 14:21 Dose: Admin: 11/09/16 12:51 Dose: 21 mg Admin: 11/08/16 15:30 Dose: 21 mg Ondansetron HCl (Zofran) 4 mg IVPUSH Q8H PRN PRN Reason: Nausea/Vomiting Potassium Chloride (Pharmacy To Dose - Potassium Replacement) 0 dose .XX ASDIRECTED PRN PRN Reason: RX TO MONITOR K LEVELS Potassium Chloride (Klor-Con M20) [address] [facility] Last Admin: 11/09/16 20:20 Dose: 20 meq Admin: 11/09/16 08:54 Dose: 20 meq Quetiapine Fumarate (Seroquel) [address] [facility] Last Admin: 11/09/16 20:20 Dose: 50 mg Admin: 11/08/16 20:18 Dose: 50 mg Sodium Chloride (Saline Flush) 10 ml FLUSH ASDIRECTED PRN PRN Reason: Keep Vein Open Thiamine HCl (Vitamin B-1) [address] [facility] Last Admin: 11/09/16 20:20 Dose: 100 mg Admin: 11/08/16 20:18 Dose: 100 mg Topiramate (Topamax) 25 mg PO BID [facility] Last Admin: 11/09/16 20:20 Dose: 25 mg Admin: 11/09/16 08:55 Dose: 25 mg Admin: 11/08/16 20:18 Dose: 25 mg Admin: 11/08/16 11:47 Dose: 25 mg - Plan Plan (Free Text/Narrative):: improved. pt does not like his SCD and no BM yet ass improved plan start sub q heparin and stop the percacett KLAUDIA
[2016-11-10] MEDS: Multivitamins,Therapeutic Tab PO SCH (08:31)
[2016-11-10] MEDS: Famotidine 20 MG Tab PO SCH ×2 (08:32→20:30)
[2016-11-10] MEDS: guaiFENesin 600 MG Tab.ER PO SCH ×2 (08:32→20:31)
[2016-11-10] MEDS: Folic Acid 1 MG Tab PO SCH (08:32)
[2016-11-10] MEDS: chlordiazePOXIDE 25 MG Cap PO SCH (08:32)
[2016-11-10] MEDS: Magnesium Oxide 400 MG Tab PO SCH (08:32)
[2016-11-10] MEDS: Topiramate 25 MG Tab PO SCH (08:32)
[2016-11-10] MEDS: Potassium Chloride 20 MEQ Tab.ER PO SCH ×2 (08:32→20:30)
[2016-11-10] MEDS: Furosemide 20 MG Tab PO SCH (08:32)
[2016-11-10] MEDS: Heparin Sodium 5,000 Units/ML Vial SUBCUT SCH ×2 (09:54→20:32)
--- NOTE | 2016-11-10 13:22 | PCM.CONSN ---
- General Info Date of Service: 11/10/16 Admission Dx/Problem (Free Text): Admission Diagnosis/Problem Admission Diagnosis/Problem Appendicitis Patient is Postop day #3 with ruptured appendicitis- s/p appendectomy with Dr. Dutton. Doing well; per primary team, diet advanced. Pain controlled. CIWAA score has been 0 for >24 hours now; Consult with Dr. Christopher this morning was with no recommendations and no concerns. Ambulating. Passing gas, good appetite. Functional Status: Reports: Pain Controlled, Tolerating Diet, Ambulating, Urinating, Incentive Spirometry. Denies: New Symptoms - Review of Systems General: Reports: No Symptoms HEENT: Reports: No Symptoms Pulmonary: Reports: No Symptoms Cardiovascular: Reports: No Symptoms Gastrointestinal: Reports: Abdominal Pain (improving day-to-day), Other (No BM yet). Denies: Diarrhea, Nausea, Vomiting Genitourinary: Reports: No Symptoms Musculoskeletal: Reports: No Symptoms Skin: Reports: No Symptoms Neurological: Reports: No Symptoms Psychiatric: Reports: No Symptoms. Denies: Anxiety, Agitation, Cravings - Patient Data Vitals - Most Recent: Last Vital Signs Temp 97.8 F 11/10/16 12:00 Pulse 77 11/10/16 12:00 Resp 16 11/10/16 12:00 BP 127/88 11/10/16 12:00 Pulse Ox 97 11/10/16 10:00 Weight - Most Recent: 210 lb 9.6 oz I&O - Last 24 Hours: Intake & Output 11/09/16 11/10/16 11/10/16 22:59 06:59 14:59 Intake Total 1890 200 120 Output Total 1475 300 Balance 415 -100 120 Elmer Results Last 24 Hours: Microbiology 11/08/16 20:30 Aerobic Blood Culture - Preliminary Blood - Venous - Lab Draw NO GROWTH AFTER 1 DAY Anaerobic Blood Culture - Preliminary NO GROWTH AFTER 1 DAY 11/08/16 20:43 Aerobic Blood Culture - Preliminary Blood - Venous NO GROWTH AFTER 1 DAY Anaerobic Blood Culture - Preliminary NO GROWTH AFTER 1 DAY Med Orders - Current: Current Medications Acetaminophen (Tylenol) 650 mg PO Q4H PRN PRN Reason: Fever Last Admin: 11/08/16 20:17 Dose: 650 mg Hydrocodone Bitart/Acetaminophen ([place] 325-5 Mg) 1 tab PO Q6H PRN PRN Reason: Pain Albuterol/Ipratropium (Duoneb 3.0-0.5 Mg/3 Ml) 3 ml NEB Q6HRRT PRN PRN Reason: wheezing/SOB/cough Famotidine (Pepcid) 20 mg PO BID [facility] Last Admin: 11/10/16 08:32 Dose: 20 mg Folic Acid (Folic Acid) 1 mg PO DAILY [facility] Last Admin: 11/10/16 08:32 Dose: 1 mg Furosemide (Lasix) 20 mg PO DAILY [facility] Last Admin: 11/10/16 08:32 Dose: 20 mg Guaifenesin (Mucinex) 600 mg PO BID [facility] Last Admin: 11/10/16 08:32 Dose: 600 mg Heparin Sodium (Porcine) (Heparin Sodium) 5,000 units SUBCUT Q12HR [facility] Last Admin: 11/10/16 09:54 Dose: 5,000 units Hydralazine HCl (Apresoline) 20 mg IVPUSH Q4H PRN PRN Reason: sb/p >150 Piperacillin Sod/Tazobactam (Sod 4.5 gm/ Sodium Chloride) 100 mls @ 25 mls/hr IV Q8H [facility] Last Admin: 11/10/16 08:31 Dose: 25 mls/hr Lorazepam (Ativan) 2 mg IVPUSH Q4H PRN PRN Reason: Seizures Lorazepam (Ativan) 1 - 3 mg IVPUSH Q4H PRN; Protocol PRN Reason: Withdrawal Symptoms Magnesium Oxide (Magnesium Oxide) 400 mg PO DAILY [facility] Last Admin: 11/10/16 08:32 Dose: 400 mg Magnesium Sulfate (Pharmacy To Dose - Magnesium Replacement) 0 dose .XX ASDIRECTED PRN PRN Reason: RX TO MONITOR MAG LEVELS Metoprolol Tartrate (Lopressor) 5 mg IVPUSH Q4H PRN PRN Reason: Tachycardia Miscellaneous Information (Remove Patch) 0 ea TRDERM Q24H [facility] Last Admin: 11/09/16 17:21 Dose: Not Given Multivitamins (Thera) 1 each PO DAILY [facility] Last Admin: 11/10/16 08:31 Dose: 1 each Nicotine (Habitrol) 21 mg TRDERM Q24H [facility] Last Admin: 11/09/16 14:21 Dose: Not Given Ondansetron HCl (Zofran) 4 mg IVPUSH Q8H PRN PRN Reason: Nausea/Vomiting Potassium Chloride (Pharmacy To Dose - Potassium Replacement) 0 dose .XX ASDIRECTED PRN PRN Reason: RX TO MONITOR K LEVELS Potassium Chloride (Klor-Con M20) 20 meq PO BID [facility] Last Admin: 11/10/16 08:32 Dose: 20 meq Quetiapine Fumarate (Seroquel) 50 mg PO BEDTIME [facility] Last Admin: 11/09/16 20:20 Dose: 50 mg Sodium Chloride (Saline Flush) 10 ml FLUSH ASDIRECTED PRN PRN Reason: Keep Vein Open Thiamine HCl (Vitamin B-1) 100 mg PO BEDTIME [facility] Last Admin: 11/09/16 20:20 Dose: 100 mg Discontinued Medications Acetaminophen (Tylenol) 650 mg PO NOW ONE Stop: 11/08/16 03:14 Last Admin: 11/08/16 03:26 Dose: 650 mg Albuterol (Proventil Neb Soln) 2.5 mg NEB ONETIME ONE Stop: 11/07/16 19:01 Last Admin: 11/07/16 18:30 Dose: 2.5 mg Bupivacaine HCl/Epinephrine Bitart (Marcaine 0.5%/Epinephrine 1:200,000) Confirm Administered Dose 50 ml .ROUTE .STK-MED ONE Stop: 11/07/16 19:24 Last Admin: 11/07/16 20:02 Dose: 12.5 ml Chlordiazepoxide HCl (Librium) 50 mg PO BID [facility] Last Admin: 11/10/16 08:32 Dose: 50 mg Diatrizoate Meglum/Diatrizoate Sod (Gastrografin 37%) 90 ml PO ONETIME ONE Stop: 11/07/16 15:45 Last Admin: 11/07/16 16:23 Dose: 90 ml Diphtheria/Tetanus/Acell Pertussis (Adacel) 0.5 ml IM .ONCE ONE Stop: 11/08/16 00:18 Famotidine (Pepcid) 20 mg IVPUSH ONETIME ONE Stop: 11/07/16 13:36 Last Admin: 11/07/16 14:10 Dose: 20 mg Fentanyl (Sublimaze) Confirm Administered Dose 250 mcg .ROUTE .STK-MED ONE Stop: 11/07/16 17:51 Fentanyl (Sublimaze) 50 mcg IVPUSH Q5M PRN PRN Reason: Pain Fentanyl (Sublimaze) Confirm Administered Dose 100 mcg .ROUTE .STK-MED ONE Stop: 11/07/16 21:29 Glycopyrrolate (Robinul) Confirm Administered Dose 0.4 mg .ROUTE .STK-MED ONE Stop: 11/07/16 21:14 Glycopyrrolate (Robinul) Confirm Administered Dose 0.2 mg .ROUTE .STK-MED ONE Stop: 11/07/16 21:16 Hydromorphone HCl (Dilaudid) 0.5 mg IVPUSH ONETIME ONE Stop: 11/07/16 13:36 Last Admin: 11/07/16 13:47 Dose: 0.5 mg Hydromorphone HCl (Dilaudid) 0.5 mg IVPUSH NOW STA Stop: 11/07/16 16:02 Last Admin: 11/07/16 16:05 Dose: 0.5 mg Hydromorphone HCl (Dilaudid) 0.5 mg IVPUSH ONETIME ONE Stop: 11/07/16 18:02 Last Admin: 11/07/16 18:13 Dose: 0.5 mg Hydromorphone HCl (Dilaudid) 1 mg IVPUSH ONETIME ONE Stop: 11/07/16 18:56 Last Admin: 11/07/16 18:59 Dose: 1 mg Hydromorphone HCl (Dilaudid) Confirm Administered Dose 1 mg .ROUTE .STK-MED ONE Stop: 11/07/16 19:00 Last Admin: 11/08/16 00:20 Dose: Not Given Hydromorphone HCl (Dilaudid) 0.5 mg IVPUSH Q15M PRN PRN Reason: severe pain Stop: 11/07/16 20:36 Hydromorphone HCl (Dilaudid) 0.5 mg IVPUSH Q1H PRN PRN Reason: Pain Last Admin: 11/09/16 08:51 Dose: 0.5 mg Sodium Chloride (Normal Saline) 1,000 mls @ 999 mls/hr IV ONETIME [facility] Last Admin: 11/07/16 16:33 Dose: 999 mls/hr Sodium Chloride (Normal Saline) 1,000 mls @ 999 mls/hr IV ONETIME [facility] Sodium Chloride (Normal Saline) 100 mls @ 60 mls/hr IV ASDIRECTED [facility] Last Admin: 11/07/16 16:24 Dose: 60 mls/hr Lidocaine HCl (Xylocaine-Mpf 1%) Confirm Administered Dose 4 mls @ as directed .ROUTE .STK-MED ONE Stop: 11/07/16 17:51 Ertapenem 1 gm/ Sodium (Chloride) 100 mls @ 100 mls/hr IV ONETIME ONE Stop: 11/07/16 18:54 Last Admin: 11/07/16 18:22 Dose: 100 mls/hr Lactated Ringer's (Ringers, Lactated) Confirm Administered Dose 1,000 mls @ as directed .ROUTE .STK-MED ONE Stop: 11/07/16 20:38 Lactated Ringer's (Ringers, Lactated) Confirm Administered Dose 1,000 mls @ as directed .ROUTE .STK-MED ONE Stop: 11/07/16 20:38 Sodium Chloride (Normal Saline) 1,000 mls @ 150 mls/hr IV ASDIRECTED [facility] Last Admin: 11/09/16 03:14 Dose: 150 mls/hr Piperacillin Sod/Tazobactam (Sod 4.5 gm/ Sodium Chloride) 100 mls @ 200 mls/hr IV ONETIME ONE Stop: 11/07/16 22:29 Last Admin: 11/08/16 00:34 Dose: 200 mls/hr Magnesium Sulfate 2 gm/ Premix 50 mls @ 25 mls/hr IV ONETIME ONE Stop: 11/08/16 14:59 Last Admin: 11/08/16 12:44 Dose: 25 mls/hr Iopamidol (Isovue-370 (76%)) 100 ml IVPUSH ONETIME ONE Stop: 11/07/16 15:45 Last Admin: 11/07/16 16:24 Dose: 100 ml Ketorolac Tromethamine (Toradol) Confirm Administered Dose 30 mg .ROUTE .STK- MED ONE Stop: 11/07/16 21:35 Ketorolac Tromethamine (Toradol) 30 mg IVPUSH Q6H PRN PRN Reason: Pain Last Admin: 11/10/16 00:16 Dose: 30 mg Lidocaine/Epinephrine (Xylocaine 1% With Epinephrine 1:100,000) Confirm Administered Dose 20 ml .ROUTE .STK-MED ONE Stop: 11/07/16 19:24 Last Admin: 11/07/16 20:02 Dose: 12.5 ml Magnesium Hydroxide (Milk Of Magnesia) 30 ml PO ONETIME ONE Stop: 11/10/16 06:19 Last Admin: 11/10/16 06:39 Dose: 30 ml Meperidine HCl (Demerol) 12.5 mg IVPUSH ONETIME PRN PRN Reason: shivering Stop: 11/08/16 20:21 Metoprolol Tartrate (Lopressor) 5 mg IVPUSH Q4H PRN PRN Reason: HR >120 Midazolam HCl (Versed 1 Mg/Ml) Confirm Administered Dose 2 mg .ROUTE .STK-MED ONE Stop: 11/07/16 17:51 Neostigmine Methylsulfate (Neostigmine Methylsulfate) Confirm Administered Dose 10 mg .ROUTE .STK-MED ONE Stop: 11/07/16 21:13 Ondansetron HCl (Zofran) 4 mg IVPUSH ONETIME ONE Stop: 11/07/16 13:36 Last Admin: 11/07/16 14:14 Dose: 4 mg Ondansetron HCl (Zofran) Confirm Administered Dose 4 mg .ROUTE .STK-MED ONE Stop: 11/07/16 17:51 Ondansetron HCl (Zofran) 4 mg IVPUSH ONETIME PRN PRN Reason: Nausea/Vomiting Oxycodone/Acetaminophen (Percocet 325-5 Mg) 1 tab PO Q6H PRN PRN Reason: Pain Last Admin: 11/10/16 06:11 Dose: 1 tab Pneumococcal Polyvalent Vaccine (Pneumovax 23) 0.5 ml IM .ONCE ONE Stop: 11/08/16 00:18 Propofol (Diprivan 20 Ml) Confirm Administered Dose 200 mg .ROUTE .STK-MED ONE Stop: 11/07/16 17:51 Rocuronium [place] (Zemuron) Confirm Administered Dose 50 mg .ROUTE .STK-MED ONE Stop: 11/07/16 17:51 Sodium Chloride (Saline Flush) 10 ml FLUSH ASDIRECTED PRN PRN Reason: Keep Vein Open Last Admin: 11/07/16 14:16 Dose: 10 ml Sodium Chloride (Saline Flush) 10 ml FLUSH ONETIME ONE Stop: 11/07/16 15:45 Last Admin: 11/07/16 16:24 Dose: 10 ml Succinylcholine Chloride (Quelicin) Confirm Administered Dose 200 mg .ROUTE .STK -MED ONE Stop: 11/07/16 21:36 Topiramate (Topamax) 25 mg PO BID [facility] Last Admin: 11/10/16 08:32 Dose: 25 mg - Exam Quality Assessment: DVT Prophylaxis General: Alert, Oriented, Cooperative, No Acute Distress HEENT: Pupils Equal, EOMI, Mucous Membr. Moist/[place] Neck: Supple Lungs: Clear to Auscultation, Normal Respiratory Effort, Decreased Breath Sounds (bases) Cardiovascular: Regular Rate, Regular Rhythm GI/Abdominal Exam: Normal Bowel Sounds, Soft, Tender (mild; improved) (Male) Exam: Deferred Extremities: Normal Inspection, No Pedal Edema Peripheral Pulses: 2+: Dorsalis Pedis (L), Dorsalis Pedis (R) Neurological: No New Focal Deficit Psy/Mental Status: Alert, Normal Affect, Normal Mood Consult PN Assessment/Plan POD#: 3 (1) Appendicitis SNOMED Code(s): 36701308 Code(s): K37 - UNSPECIFIED APPENDICITIS Current Visit: Yes Qualifiers: Qualified Code(s): K35.80 - Unspecified acute appendicitis Problem List Initiated/Reviewed/Updated: Yes My Orders Last 24 Hours: My Active Orders 11/09/16 14:00 Remove Patch 0 ea TRDERM Q24H Plan: A/P: S/P Appendectomy with ruptured appendix; General Surgeon, -- Primary Attending -POD #3 -Postoperative Surgical Care per Surgeon -Pain management per Surgeon -DVT prophylax per Surgeon -Diet per Surgeon- Regular- tolerating well Alcohol use disorder -CIWA Protocol---score has been 0 for >24 hours now -admits to 3-4 mixed drinks 3-4 nights per week - Seroquel; Will DC librium and topamax now -Hydralazine and Lopressor PRN for parameters as ordered--has not needed -Urine drug screen and blood alcohol levels to be done on initial blood and UA collected---both negative -Dr. Christopher consult for Substance use/abuse evaluation---no recommendations or concerns. Toabacco use disorder -Nicotine patch -RT/IS and Duoneb PRN -Mucinex BID for sputum Other: GI prophylax PT/OT eval/tx CM/SW for assist with DC planning Patient with no further withdrawl symptoms. No concerns for addiction from Psychiatry standpoint. Will sign off for now per Dr. Ranada, if further concerns please do not hesitate to contact Hospitalist service. Patient is Full Code status.
[2016-11-10] MEDS: Nicotine 21 MG/24 Hr Patch TRDERM SCH (14:14)
[2016-11-10] MEDS: Acetaminophen/HYDROcodone 325-5 MG Tab PO PRN (20:28)
[2016-11-10] MEDS: Thiamine 100 MG Tab PO SCH (20:32)
[2016-11-10] MEDS: QUEtiapine 25 MG Tab PO SCH (20:32)
[2016-11-11] MEDS: Piperacillin/Tazobactam 4.5 GM in Sodium Chloride 0.9% 100 ML IV SCH ×3 (00:14→16:05)
[2016-11-11] MEDS: Heparin Sodium 5,000 Units/ML Vial SUBCUT SCH ×2 (08:53→20:46)
[2016-11-11] MEDS: Famotidine 20 MG Tab PO SCH ×2 (08:53→20:47)
[2016-11-11] MEDS: Magnesium Oxide 400 MG Tab PO SCH (08:53)
[2016-11-11] MEDS: Potassium Chloride 20 MEQ Tab.ER PO SCH ×2 (08:53→20:47)
[2016-11-11] MEDS: Furosemide 20 MG Tab PO SCH (08:54)
[2016-11-11] MEDS: guaiFENesin 600 MG Tab.ER PO SCH ×2 (08:54→20:47)
[2016-11-11] MEDS: Folic Acid 1 MG Tab PO SCH (08:54)
[2016-11-11] MEDS: Multivitamins,Therapeutic Tab PO SCH (08:54)
--- NOTE | 2016-11-11 11:26 | PCM.SURGPN ---
- General Info Date of Service: 11/11/16 - Review of Systems General: Reports: No Symptoms HEENT: Reports: No Symptoms Cardiovascular: Reports: No Symptoms Gastrointestinal: Reports: No Symptoms - Patient Data Vitals - Most Recent: Last Vital Signs Temp 98.2 F 11/11/16 08:52 Pulse 77 11/11/16 08:52 Resp 16 11/11/16 08:52 BP 136/89 11/11/16 08:52 Pulse Ox 97 11/11/16 10:00 Weight - Most Recent: 94.846 kg I&O - Last 24 Hours: Intake & Output 11/10/16 11/11/16 11/11/16 23:59 07:59 15:59 Intake Total 1050 900 Balance 1050 900 Lab Results Last 24 Hrs: Laboratory Results - last 24 hr 11/11/16 Range/Units 05:52 WBC 8.13 (4.23-9.07) K/mm3 RBC 4.63 (4.63-6.08) M/mm3 Hgb 14.9 (13.7-17.5) gm/L Hct 44.6 (40.1-51.0) % MCV 96.3 H (79.0-92.2) fl MCH 32.2 (25.7-32.2) pg MCHC 33.4 (32.2-35.5) g/dl RDW Std Deviation 49.5 H (35.1-43.9) fL Plt Count 211 (163-337) K/mm3 MPV 10.9 (9.4-12.3) fl Neut % (Auto) 65.9 (34.0-67.9) % Lymph % (Auto) 21.9 (21.8-53.1) % [place] % (Auto) 10.3 (5.3-12.2) % Eos % (Auto) 1.1 (0.8-7.0) Baso % (Auto) 0.4 (0.1-1.2) % Neut # (Auto) 5.36 (1.78-5.38) K/mm3 Lymph # (Auto) 1.78 (1.32-3.57) K/mm3 [place] # (Auto) 0.84 H (0.30-0.82) K/mm3 Eos # (Auto) 0.09 (0.04-0.54) K/mm3 Baso # (Auto) 0.03 (0.01-0.08) K/mm3 [place] Results Last 24 Hrs: Microbiology 11/08/16 20:30 Aerobic Blood Culture - Preliminary Blood - Venous - Lab Draw NO GROWTH AFTER 2 DAYS Anaerobic Blood Culture - Preliminary NO GROWTH AFTER 2 DAYS 11/08/16 20:43 Aerobic Blood Culture - Preliminary Blood - Venous NO GROWTH AFTER 2 DAYS Anaerobic Blood Culture - Preliminary NO GROWTH AFTER 2 DAYS Med Orders - Current: Current Medications Acetaminophen (Tylenol) 650 mg PO Q4H PRN PRN Reason: Fever Last Admin: 11/08/16 20:17 Dose: 650 mg Hydrocodone Bitart/Acetaminophen ([place] 325-5 Mg) 1 tab PO Q6H PRN PRN Reason: Pain Last Admin: 11/10/16 20:28 Dose: 1 tab Albuterol/Ipratropium (Duoneb 3.0-0.5 Mg/3 Ml) 3 ml NEB Q6HRRT PRN PRN Reason: wheezing/SOB/cough Famotidine (Pepcid) 20 mg PO BID [facility] Last Admin: 11/11/16 08:53 Dose: 20 mg Folic Acid (Folic Acid) 1 mg PO DAILY [facility] Last Admin: 11/11/16 08:54 Dose: 1 mg Furosemide (Lasix) 20 mg PO DAILY [facility] Last Admin: 11/11/16 08:54 Dose: 20 mg Guaifenesin (Mucinex) 600 mg PO BID [facility] Last Admin: 11/11/16 08:54 Dose: 600 mg Heparin Sodium (Porcine) (Heparin Sodium) 5,000 units SUBCUT Q12HR [facility] Last Admin: 11/11/16 08:53 Dose: 5,000 units Hydralazine HCl (Apresoline) 20 mg IVPUSH Q4H PRN PRN Reason: sb/p >150 Piperacillin Sod/Tazobactam (Sod 4.5 gm/ Sodium Chloride) 100 mls @ 25 mls/hr IV Q8H [facility] Last Admin: 11/11/16 08:49 Dose: 25 mls/hr Lorazepam (Ativan) 2 mg IVPUSH Q4H PRN PRN Reason: Seizures Lorazepam (Ativan) 1 - 3 mg IVPUSH Q4H PRN; Protocol PRN Reason: Withdrawal Symptoms Magnesium Oxide (Magnesium Oxide) 400 mg PO DAILY [facility] Last Admin: 11/11/16 08:53 Dose: 400 mg Magnesium Sulfate (Pharmacy To Dose - Magnesium Replacement) 0 dose .XX ASDIRECTED PRN PRN Reason: RX TO MONITOR MAG LEVELS Metoprolol Tartrate (Lopressor) 5 mg IVPUSH Q4H PRN PRN Reason: Tachycardia Miscellaneous Information (Remove Patch) 0 ea TRDERM Q24H [facility] Last Admin: 11/10/16 14:14 Dose: 1 ea Multivitamins (Thera) 1 each PO DAILY [facility] Last Admin: 11/11/16 08:54 Dose: 1 each Nicotine (Habitrol) 21 mg TRDERM Q24H [facility] Last Admin: 11/10/16 14:14 Dose: 21 mg Ondansetron HCl (Zofran) 4 mg IVPUSH Q8H PRN PRN Reason: Nausea/Vomiting Potassium Chloride (Pharmacy To Dose - Potassium Replacement) 0 dose .XX ASDIRECTED PRN PRN Reason: RX TO MONITOR K LEVELS Potassium Chloride (Klor-Con M20) 20 meq PO BID [facility] Last Admin: 11/11/16 08:53 Dose: 20 meq Quetiapine Fumarate (Seroquel) 50 mg PO BEDTIME [facility] Last Admin: 11/10/16 20:32 Dose: 50 mg Sodium Chloride (Saline Flush) 10 ml FLUSH ASDIRECTED PRN PRN Reason: Keep Vein Open Thiamine HCl (Vitamin B-1) 100 mg PO BEDTIME [facility] Last Admin: 11/10/16 20:32 Dose: 100 mg Discontinued Medications Acetaminophen (Tylenol) 650 mg PO NOW ONE Stop: 11/08/16 03:14 Last Admin: 11/08/16 03:26 Dose: 650 mg Albuterol (Proventil Neb Soln) 2.5 mg NEB ONETIME ONE Stop: 11/07/16 19:01 Last Admin: 11/07/16 18:30 Dose: 2.5 mg Bupivacaine HCl/Epinephrine Bitart (Marcaine 0.5%/Epinephrine 1:200,000) Confirm Administered Dose 50 ml .ROUTE .STK-MED ONE Stop: 11/07/16 19:24 Last Admin: 11/07/16 20:02 Dose: 12.5 ml Chlordiazepoxide HCl (Librium) 50 mg PO BID [facility] Last Admin: 11/10/16 08:32 Dose: 50 mg Diatrizoate Meglum/Diatrizoate Sod (Gastrografin 37%) 90 ml PO ONETIME ONE Stop: 11/07/16 15:45 Last Admin: 11/07/16 16:23 Dose: 90 ml Diphtheria/Tetanus/Acell Pertussis (Adacel) 0.5 ml IM .ONCE ONE Stop: 11/08/16 00:18 Famotidine (Pepcid) 20 mg IVPUSH ONETIME ONE Stop: 11/07/16 13:36 Last Admin: 11/07/16 14:10 Dose: 20 mg Fentanyl (Sublimaze) Confirm Administered Dose 250 mcg .ROUTE .STK-MED ONE Stop: 11/07/16 17:51 Fentanyl (Sublimaze) 50 mcg IVPUSH Q5M PRN PRN Reason: Pain Fentanyl (Sublimaze) Confirm Administered Dose 100 mcg .ROUTE .STK-MED ONE Stop: 11/07/16 21:29 Glycopyrrolate (Robinul) Confirm Administered Dose 0.4 mg .ROUTE .STK-MED ONE Stop: 11/07/16 21:14 Glycopyrrolate (Robinul) Confirm Administered Dose 0.2 mg .ROUTE .STK-MED ONE Stop: 11/07/16 21:16 Hydromorphone HCl (Dilaudid) 0.5 mg IVPUSH ONETIME ONE Stop: 11/07/16 13:36 Last Admin: 11/07/16 13:47 Dose: 0.5 mg Hydromorphone HCl (Dilaudid) 0.5 mg IVPUSH NOW STA Stop: 11/07/16 16:02 Last Admin: 11/07/16 16:05 Dose: 0.5 mg Hydromorphone HCl (Dilaudid) 0.5 mg IVPUSH ONETIME ONE Stop: 11/07/16 18:02 Last Admin: 11/07/16 18:13 Dose: 0.5 mg Hydromorphone HCl (Dilaudid) 1 mg IVPUSH ONETIME ONE Stop: 11/07/16 18:56 Last Admin: 11/07/16 18:59 Dose: 1 mg Hydromorphone HCl (Dilaudid) Confirm Administered Dose 1 mg .ROUTE .STK-MED ONE Stop: 11/07/16 19:00 Last Admin: 11/08/16 00:20 Dose: Not Given Hydromorphone HCl (Dilaudid) 0.5 mg IVPUSH Q15M PRN PRN Reason: severe pain Stop: 11/07/16 20:36 Hydromorphone HCl (Dilaudid) 0.5 mg IVPUSH Q1H PRN PRN Reason: Pain Last Admin: 11/09/16 08:51 Dose: 0.5 mg Sodium Chloride (Normal Saline) 1,000 mls @ 999 mls/hr IV ONETIME [facility] Last Admin: 11/07/16 16:33 Dose: 999 mls/hr Sodium Chloride (Normal Saline) 1,000 mls @ 999 mls/hr IV ONETIME [facility] Sodium Chloride (Normal Saline) 100 mls @ 60 mls/hr IV ASDIRECTED [facility] Last Admin: 11/07/16 16:24 Dose: 60 mls/hr Lidocaine HCl (Xylocaine-Mpf 1%) Confirm Administered Dose 4 mls @ as directed .ROUTE .STK-MED ONE Stop: 11/07/16 17:51 Ertapenem 1 gm/ Sodium (Chloride) 100 mls @ 100 mls/hr IV ONETIME ONE Stop: 11/07/16 18:54 Last Admin: 11/07/16 18:22 Dose: 100 mls/hr Lactated Ringer's (Ringers, Lactated) Confirm Administered Dose 1,000 mls @ as directed .ROUTE .STK-MED ONE Stop: 11/07/16 20:38 Lactated Ringer's (Ringers, Lactated) Confirm Administered Dose 1,000 mls @ as directed .ROUTE .STK-MED ONE Stop: 11/07/16 20:38 Sodium Chloride (Normal Saline) 1,000 mls @ 150 mls/hr IV ASDIRECTED [facility] Last Admin: 11/09/16 03:14 Dose: 150 mls/hr Piperacillin Sod/Tazobactam (Sod 4.5 gm/ Sodium Chloride) 100 mls @ 200 mls/hr IV ONETIME ONE Stop: 11/07/16 22:29 Last Admin: 11/08/16 00:34 Dose: 200 mls/hr Magnesium Sulfate 2 gm/ Premix 50 mls @ 25 mls/hr IV ONETIME ONE Stop: 11/08/16 14:59 Last Admin: 11/08/16 12:44 Dose: 25 mls/hr Iopamidol (Isovue-370 (76%)) 100 ml IVPUSH ONETIME ONE Stop: 11/07/16 15:45 Last Admin: 11/07/16 16:24 Dose: 100 ml Ketorolac Tromethamine (Toradol) Confirm Administered Dose 30 mg .ROUTE .STK- MED ONE Stop: 11/07/16 21:35 Ketorolac Tromethamine (Toradol) 30 mg IVPUSH Q6H PRN PRN Reason: Pain Last Admin: 11/10/16 00:16 Dose: 30 mg Lidocaine/Epinephrine (Xylocaine 1% With Epinephrine 1:100,000) Confirm Administered Dose 20 ml .ROUTE .STK-MED ONE Stop: 11/07/16 19:24 Last Admin: 11/07/16 20:02 Dose: 12.5 ml Magnesium Hydroxide (Milk Of Magnesia) 30 ml PO ONETIME ONE Stop: 11/10/16 06:19 Last Admin: 11/10/16 06:39 Dose: 30 ml Meperidine HCl (Demerol) 12.5 mg IVPUSH ONETIME PRN PRN Reason: shivering Stop: 11/08/16 20:21 Metoprolol Tartrate (Lopressor) 5 mg IVPUSH Q4H PRN PRN Reason: HR >120 Midazolam HCl (Versed 1 Mg/Ml) Confirm Administered Dose 2 mg .ROUTE .STK-MED ONE Stop: 11/07/16 17:51 Neostigmine Methylsulfate (Neostigmine Methylsulfate) Confirm Administered Dose 10 mg .ROUTE .STK-MED ONE Stop: 11/07/16 21:13 Ondansetron HCl (Zofran) 4 mg IVPUSH ONETIME ONE Stop: 11/07/16 13:36 Last Admin: 11/07/16 14:14 Dose: 4 mg Ondansetron HCl (Zofran) Confirm Administered Dose 4 mg .ROUTE .STK-MED ONE Stop: 11/07/16 17:51 Ondansetron HCl (Zofran) 4 mg IVPUSH ONETIME PRN PRN Reason: Nausea/Vomiting Oxycodone/Acetaminophen (Percocet 325-5 Mg) 1 tab PO Q6H PRN PRN Reason: Pain Last Admin: 11/10/16 06:11 Dose: 1 tab Pneumococcal Polyvalent Vaccine (Pneumovax 23) 0.5 ml IM .ONCE ONE Stop: 11/08/16 00:18 Propofol (Diprivan 20 Ml) Confirm Administered Dose 200 mg .ROUTE .STK-MED ONE Stop: 11/07/16 17:51 Rocuronium [place] (Zemuron) Confirm Administered Dose 50 mg .ROUTE .STK-MED ONE Stop: 11/07/16 17:51 Sodium Chloride (Saline Flush) 10 ml FLUSH ASDIRECTED PRN PRN Reason: Keep Vein Open Last Admin: 11/07/16 14:16 Dose: 10 ml Sodium Chloride (Saline Flush) 10 ml FLUSH ONETIME ONE Stop: 11/07/16 15:45 Last Admin: 11/07/16 16:24 Dose: 10 ml Succinylcholine Chloride (Quelicin) Confirm Administered Dose 200 mg .ROUTE .STK -MED ONE Stop: 11/07/16 21:36 Topiramate (Topamax) 25 mg PO BID [facility] Last Admin: 11/10/16 08:32 Dose: 25 mg - Exam Wound/Incisions: Healing Well GI/Abdominal Exam: Other (loose stools) - Problem List Review Problem List Initiated/Reviewed/Updated: Yes - My Orders Last 24 Hours: Active Orders 24 hr Category Date Time Status CBC W/O DIFF,HEMOGRAM [HEME] MOTH@0700 Lab 11/13/16 07:00 Ordered CBC W/O DIFF,HEMOGRAM [HEME] MOTH@0700 Lab 11/16/16 07:00 Ordered CBC W/O DIFF,HEMOGRAM [HEME] MOTH@0700 Lab 11/20/16 07:00 Ordered CBC W/O DIFF,HEMOGRAM [HEME] MOTH@0700 Lab 11/23/16 07:00 Ordered CBC W/O DIFF,HEMOGRAM [HEME] MOTH@0700 Lab 11/27/16 07:00 Ordered CBC W/O DIFF,HEMOGRAM [HEME] MOTH@0700 Lab 11/30/16 07:00 Ordered Medication Orders Acetaminophen (Tylenol) 650 mg PO Q4H PRN PRN Reason: Fever Last Admin: 11/08/16 20:17 Dose: 650 mg Hydrocodone Bitart/Acetaminophen ([place] 325-5 Mg) 1 tab PO Q6H PRN PRN Reason: Pain Last Admin: 11/10/16 20:28 Dose: 1 tab Albuterol/Ipratropium (Duoneb 3.0-0.5 Mg/3 Ml) 3 ml NEB Q6HRRT PRN PRN Reason: wheezing/SOB/cough Famotidine (Pepcid) 20 mg PO BID [facility] Last Admin: 11/11/16 08:53 Dose: 20 mg Admin: 11/10/16 20:30 Dose: 20 mg Admin: 11/10/16 08:32 Dose: 20 mg Admin: 11/09/16 20:20 Dose: 20 mg Admin: 11/09/16 08:54 Dose: 20 mg Admin: 11/08/16 20:18 Dose: 20 mg Folic Acid (Folic Acid) 1 mg PO DAILY [facility] Last Admin: 11/11/16 08:54 Dose: 1 mg Admin: 11/10/16 08:32 Dose: 1 mg Admin: 11/09/16 08:54 Dose: 1 mg Admin: 11/08/16 11:47 Dose: 1 mg Furosemide (Lasix) 20 mg PO DAILY [facility] Last Admin: 11/11/16 08:54 Dose: 20 mg Admin: 11/10/16 08:32 Dose: 20 mg Admin: 11/09/16 08:54 Dose: 20 mg Guaifenesin (Mucinex) 600 mg PO BID [facility] Last Admin: 11/11/16 08:54 Dose: 600 mg Admin: 11/10/16 20:31 Dose: 600 mg Admin: 11/10/16 08:32 Dose: 600 mg Admin: 11/09/16 20:20 Dose: 600 mg Admin: 11/09/16 09:38 Dose: 600 mg Heparin Sodium (Porcine) (Heparin Sodium) 5,000 units SUBCUT Q12HR [facility] Last Admin: 11/11/16 08:53 Dose: 5,000 units Admin: 11/10/16 20:32 Dose: 5,000 units Admin: 11/10/16 09:54 Dose: 5,000 units Hydralazine HCl (Apresoline) 20 mg IVPUSH Q4H PRN PRN Reason: sb/p >150 Piperacillin Sod/Tazobactam (Sod 4.5 gm/ Sodium Chloride) 100 mls @ 25 mls/hr IV Q8H [facility] Last Admin: 11/11/16 08:49 Dose: 25 mls/hr Infusion: 11/11/16 04:14 Dose: 25 mls/hr Admin: 11/11/16 00:14 Dose: 25 mls/hr Infusion: 11/10/16 21:36 Dose: 25 mls/hr Admin: 11/10/16 17:36 Dose: 25 mls/hr Infusion: 11/10/16 12:31 Dose: 25 mls/hr Admin: 11/10/16 08:31 Dose: 25 mls/hr Infusion: 11/10/16 04:16 Dose: 25 mls/hr Admin: 11/10/16 00:16 Dose: 25 mls/hr Infusion: 11/09/16 20:13 Dose: 25 mls/hr Admin: 11/09/16 16:13 Dose: 25 mls/hr Infusion: 11/09/16 12:53 Dose: 25 mls/hr Admin: 11/09/16 08:53 Dose: 25 mls/hr Infusion: 11/09/16 04:18 Dose: 25 mls/hr Admin: 11/09/16 00:18 Dose: 25 mls/hr Infusion: 11/08/16 19:29 Dose: 25 mls/hr Admin: 11/08/16 15:29 Dose: 25 mls/hr Infusion: 11/08/16 10:59 Dose: 25 mls/hr Admin: 11/08/16 06:59 Dose: 25 mls/hr Lorazepam (Ativan) 2 mg IVPUSH Q4H PRN PRN Reason: Seizures Lorazepam (Ativan) 1 - 3 mg IVPUSH Q4H PRN; Protocol PRN Reason: Withdrawal Symptoms Magnesium Oxide (Magnesium Oxide) 400 mg PO DAILY [facility] Last Admin: 11/11/16 08:53 Dose: 400 mg Admin: 11/10/16 08:32 Dose: 400 mg Admin: 11/09/16 08:54 Dose: 400 mg Magnesium Sulfate (Pharmacy To Dose - Magnesium Replacement) 0 dose .XX ASDIRECTED PRN PRN Reason: RX TO MONITOR MAG LEVELS Metoprolol Tartrate (Lopressor) 5 mg IVPUSH Q4H PRN PRN Reason: Tachycardia Miscellaneous Information (Remove Patch) 0 ea TRDERM Q24H [facility] Last Admin: 11/10/16 14:14 Dose: 1 ea Admin: 11/09/16 17:21 Dose: Multivitamins (Thera) 1 each PO DAILY [facility] Last Admin: 11/11/16 08:54 Dose: 1 each Admin: 11/10/16 08:31 Dose: 1 each Admin: 11/09/16 08:53 Dose: 1 each Admin: 11/08/16 11:46 Dose: 1 each Nicotine (Habitrol) 21 mg TRDERM Q24H [facility] Last Admin: 11/10/16 14:14 Dose: 21 mg Admin: 11/09/16 14:21 Dose: Admin: 11/09/16 12:51 Dose: 21 mg Admin: 11/08/16 15:30 Dose: 21 mg Ondansetron HCl (Zofran) 4 mg IVPUSH Q8H PRN PRN Reason: Nausea/Vomiting Potassium Chloride (Pharmacy To Dose - Potassium Replacement) 0 dose .XX ASDIRECTED PRN PRN Reason: RX TO MONITOR K LEVELS Potassium Chloride (Klor-Con M20) 20 meq PO BID [facility] Last Admin: 11/11/16 08:53 Dose: 20 meq Admin: 11/10/16 20:30 Dose: 20 meq Admin: 11/10/16 08:32 Dose: 20 meq Admin: 11/09/16 20:20 Dose: 20 meq Admin: 11/09/16 08:54 Dose: 20 meq Quetiapine Fumarate (Seroquel) 50 mg PO BEDTIME [facility] Last Admin: 11/10/16 20:32 Dose: 50 mg Admin: 11/09/16 20:20 Dose: 50 mg Admin: 11/08/16 20:18 Dose: 50 mg Sodium Chloride (Saline Flush) 10 ml FLUSH ASDIRECTED PRN PRN Reason: Keep Vein Open Thiamine HCl (Vitamin B-1) 100 mg PO BEDTIME [facility] Last Admin: 11/10/16 20:32 Dose: 100 mg Admin: 11/09/16 20:20 Dose: 100 mg Admin: 11/08/16 20:18 Dose: 100 mg - Plan Plan (Free Text/Narrative):: pt alert no complaints outside of midl RLQ abdominal pain wbc is normal ass improved plan continue IV antibiotics [facility]
[2016-11-11] MEDS: Nicotine 21 MG/24 Hr Patch TRDERM SCH (13:17)
[2016-11-11] MEDS: Thiamine 100 MG Tab PO SCH (20:48)
[2016-11-11] MEDS: QUEtiapine 25 MG Tab PO SCH (20:48)
[2016-11-11] MEDS: Acetaminophen/HYDROcodone 325-5 MG Tab PO PRN (20:48)
[2016-11-12] MEDS: Piperacillin/Tazobactam 4.5 GM in Sodium Chloride 0.9% 100 ML IV SCH ×4 (00:38→23:20)
[2016-11-12] MEDS: Heparin Sodium 5,000 Units/ML Vial SUBCUT SCH ×2 (08:14→21:53)
[2016-11-12] MEDS: Famotidine 20 MG Tab PO SCH ×2 (08:15→21:53)
[2016-11-12] MEDS: guaiFENesin 600 MG Tab.ER PO SCH ×2 (08:15→21:53)
[2016-11-12] MEDS: Potassium Chloride 20 MEQ Tab.ER PO SCH ×2 (08:15→21:53)
[2016-11-12] MEDS: Folic Acid 1 MG Tab PO SCH (08:15)
[2016-11-12] MEDS: Multivitamins,Therapeutic Tab PO SCH (08:15)
[2016-11-12] MEDS: Magnesium Oxide 400 MG Tab PO SCH (08:15)
[2016-11-12] MEDS: Furosemide 20 MG Tab PO SCH (08:16)
--- NOTE | 2016-11-12 12:11 | PCM.SURGPN ---
- General Info Date of Service: 11/12/16 - Review of Systems General: Reports: No Symptoms Cardiovascular: Reports: No Symptoms Gastrointestinal: Reports: No Symptoms Genitourinary: Reports: No Symptoms - Patient Data Vitals - Most Recent: Last Vital Signs Temp 97.9 F 11/12/16 08:11 Pulse 74 11/12/16 08:11 Resp 18 11/12/16 08:11 BP 106/90 11/12/16 08:11 Pulse Ox 96 11/12/16 08:11 Weight - Most Recent: 95.39 kg I&O - Last 24 Hours: Intake & Output 11/11/16 11/12/16 11/12/16 23:59 07:59 15:59 Intake Total 680 1000 120 Output Total 2 Balance 680 998 120 [place]mer Results Last 24 Hrs: Microbiology 11/08/16 20:30 Aerobic Blood Culture - Preliminary Blood - Venous - Lab Draw NO GROWTH AFTER 3 DAYS Anaerobic Blood Culture - Preliminary NO GROWTH AFTER 3 DAYS 11/08/16 20:43 Aerobic Blood Culture - Preliminary Blood - Venous NO GROWTH AFTER 3 DAYS Anaerobic Blood Culture - Preliminary NO GROWTH AFTER 3 DAYS Med Orders - Current: Current Medications Acetaminophen (Tylenol) 650 mg PO Q4H PRN PRN Reason: Fever Last Admin: 11/08/16 20:17 Dose: 650 mg Hydrocodone Bitart/Acetaminophen ([place] 325-5 Mg) 1 tab PO Q6H PRN PRN Reason: Pain Last Admin: 11/11/16 20:48 Dose: 1 tab Albuterol/Ipratropium (Duoneb 3.0-0.5 Mg/3 Ml) 3 ml NEB Q6HRRT PRN PRN Reason: wheezing/SOB/cough Famotidine (Pepcid) 20 mg PO BID [facility] Last Admin: 11/12/16 08:15 Dose: 20 mg Folic Acid (Folic Acid) 1 mg PO DAILY [facility] Last Admin: 11/12/16 08:15 Dose: 1 mg Furosemide (Lasix) 20 mg PO DAILY [facility] Last Admin: 11/12/16 08:16 Dose: 20 mg Guaifenesin (Mucinex) 600 mg PO BID [facility] Last Admin: 11/12/16 08:15 Dose: 600 mg Heparin Sodium (Porcine) (Heparin Sodium) 5,000 units SUBCUT Q12HR [facility] Last Admin: 11/12/16 08:14 Dose: 5,000 units Hydralazine HCl (Apresoline) 20 mg IVPUSH Q4H PRN PRN Reason: sb/p >150 Piperacillin Sod/Tazobactam (Sod 4.5 gm/ Sodium Chloride) 100 mls @ 25 mls/hr IV Q8H [facility] Last Admin: 11/12/16 08:16 Dose: 25 mls/hr Lorazepam (Ativan) 2 mg IVPUSH Q4H PRN PRN Reason: Seizures Lorazepam (Ativan) 1 - 3 mg IVPUSH Q4H PRN; Protocol PRN Reason: Withdrawal Symptoms Magnesium Oxide (Magnesium Oxide) 400 mg PO DAILY [facility] Last Admin: 11/12/16 08:15 Dose: 400 mg Magnesium Sulfate (Pharmacy To Dose - Magnesium Replacement) 0 dose .XX ASDIRECTED PRN PRN Reason: RX TO MONITOR MAG LEVELS Metoprolol Tartrate (Lopressor) 5 mg IVPUSH Q4H PRN PRN Reason: Tachycardia Miscellaneous Information (Remove Patch) 0 ea TRDERM Q24H [facility] Last Admin: 11/11/16 13:18 Dose: 1 ea Multivitamins (Thera) 1 each PO DAILY [facility] Last Admin: 11/12/16 08:15 Dose: 1 each Nicotine (Habitrol) 21 mg TRDERM Q24H [facility] Last Admin: 11/11/16 13:17 Dose: 21 mg Ondansetron HCl (Zofran) 4 mg IVPUSH Q8H PRN PRN Reason: Nausea/Vomiting Potassium Chloride (Pharmacy To Dose - Potassium Replacement) 0 dose .XX ASDIRECTED PRN PRN Reason: RX TO MONITOR K LEVELS Potassium Chloride (Klor-Con M20) 20 meq PO BID [facility] Last Admin: 11/12/16 08:15 Dose: 20 meq Quetiapine Fumarate (Seroquel) 50 mg PO BEDTIME [facility] Last Admin: 11/11/16 20:48 Dose: 50 mg Sodium Chloride (Saline Flush) 10 ml FLUSH ASDIRECTED PRN PRN Reason: Keep Vein Open Thiamine HCl (Vitamin B-1) 100 mg PO BEDTIME [facility] Last Admin: 11/11/16 20:48 Dose: 100 mg Discontinued Medications Acetaminophen (Tylenol) 650 mg PO NOW ONE Stop: 11/08/16 03:14 Last Admin: 11/08/16 03:26 Dose: 650 mg Albuterol (Proventil Neb Soln) 2.5 mg NEB ONETIME ONE Stop: 11/07/16 19:01 Last Admin: 11/07/16 18:30 Dose: 2.5 mg Bupivacaine HCl/Epinephrine Bitart (Marcaine 0.5%/Epinephrine 1:200,000) Confirm Administered Dose 50 ml .ROUTE .STK-MED ONE Stop: 11/07/16 19:24 Last Admin: 11/07/16 20:02 Dose: 12.5 ml Chlordiazepoxide HCl (Librium) 50 mg PO BID [facility] Last Admin: 11/10/16 08:32 Dose: 50 mg Diatrizoate Meglum/Diatrizoate Sod (Gastrografin 37%) 90 ml PO ONETIME ONE Stop: 11/07/16 15:45 Last Admin: 11/07/16 16:23 Dose: 90 ml Diphtheria/Tetanus/Acell Pertussis (Adacel) 0.5 ml IM .ONCE ONE Stop: 11/08/16 00:18 Famotidine (Pepcid) 20 mg IVPUSH ONETIME ONE Stop: 11/07/16 13:36 Last Admin: 11/07/16 14:10 Dose: 20 mg Fentanyl (Sublimaze) Confirm Administered Dose 250 mcg .ROUTE .STK-MED ONE Stop: 11/07/16 17:51 Fentanyl (Sublimaze) 50 mcg IVPUSH Q5M PRN PRN Reason: Pain Fentanyl (Sublimaze) Confirm Administered Dose 100 mcg .ROUTE .STK-MED ONE Stop: 11/07/16 21:29 Glycopyrrolate (Robinul) Confirm Administered Dose 0.4 mg .ROUTE .STK-MED ONE Stop: 11/07/16 21:14 Glycopyrrolate (Robinul) Confirm Administered Dose 0.2 mg .ROUTE .STK-MED ONE Stop: 11/07/16 21:16 Hydromorphone HCl (Dilaudid) 0.5 mg IVPUSH ONETIME ONE Stop: 11/07/16 13:36 Last Admin: 11/07/16 13:47 Dose: 0.5 mg Hydromorphone HCl (Dilaudid) 0.5 mg IVPUSH NOW STA Stop: 11/07/16 16:02 Last Admin: 11/07/16 16:05 Dose: 0.5 mg Hydromorphone HCl (Dilaudid) 0.5 mg IVPUSH ONETIME ONE Stop: 11/07/16 18:02 Last Admin: 11/07/16 18:13 Dose: 0.5 mg Hydromorphone HCl (Dilaudid) 1 mg IVPUSH ONETIME ONE Stop: 11/07/16 18:56 Last Admin: 11/07/16 18:59 Dose: 1 mg Hydromorphone HCl (Dilaudid) Confirm Administered Dose 1 mg .ROUTE .ST-MED ONE Stop: 11/07/16 19:00 Last Admin: 11/08/16 00:20 Dose: Not Given Hydromorphone HCl (Dilaudid) 0.5 mg IVPUSH Q15M PRN PRN Reason: severe pain Stop: 11/07/16 20:36 Hydromorphone HCl (Dilaudid) 0.5 mg IVPUSH Q1H PRN PRN Reason: Pain Last Admin: 11/09/16 08:51 Dose: 0.5 mg Sodium Chloride (Normal Saline) 1,000 mls @ 999 mls/hr IV ONETIME [facility] Last Admin: 11/07/16 16:33 Dose: 999 mls/hr Sodium Chloride (Normal Saline) 1,000 mls @ 999 mls/hr IV ONETIME [facility] Sodium Chloride (Normal Saline) 100 mls @ 60 mls/hr IV ASDIRECTED [facility] Last Admin: 11/07/16 16:24 Dose: 60 mls/hr Lidocaine HCl (Xylocaine-Mpf 1%) Confirm Administered Dose 4 mls @ as directed .ROUTE .[facility] ONE Stop: 11/07/16 17:51 Ertapenem 1 gm/ Sodium (Chloride) 100 mls @ 100 mls/hr IV ONETIME ONE Stop: 11/07/16 18:54 Last Admin: 11/07/16 18:22 Dose: 100 mls/hr Lactated Ringer's (Ringers, Lactated) Confirm Administered Dose 1,000 mls @ as directed .ROUTE .[facility]-MED ONE Stop: 11/07/16 20:38 Lactated Ringer's (Ringers, Lactated) Confirm Administered Dose 1,000 mls @ as directed .ROUTE .[facility]-MED ONE Stop: 11/07/16 20:38 Sodium Chloride (Normal Saline) 1,000 mls @ 150 mls/hr IV ASDIRECTED [facility] Last Admin: 11/09/16 03:14 Dose: 150 mls/hr Piperacillin Sod/Tazobactam (Sod 4.5 gm/ Sodium Chloride) 100 mls @ 200 mls/hr IV ONETIME ONE Stop: 11/07/16 22:29 Last Admin: 11/08/16 00:34 Dose: 200 mls/hr Magnesium Sulfate 2 gm/ Premix 50 mls @ 25 mls/hr IV ONETIME ONE Stop: 11/08/16 14:59 Last Admin: 11/08/16 12:44 Dose: 25 mls/hr Iopamidol (Isovue-370 (76%)) 100 ml IVPUSH ONETIME ONE Stop: 11/07/16 15:45 Last Admin: 11/07/16 16:24 Dose: 100 ml Ketorolac Tromethamine (Toradol) Confirm Administered Dose 30 mg .ROUTE .STK- MED ONE Stop: 11/07/16 21:35 Ketorolac Tromethamine (Toradol) 30 mg IVPUSH Q6H PRN PRN Reason: Pain Last Admin: 11/10/16 00:16 Dose: 30 mg Lidocaine/Epinephrine (Xylocaine 1% With Epinephrine 1:100,000) Confirm Administered Dose 20 ml .ROUTE .STK-MED ONE Stop: 11/07/16 19:24 Last Admin: 11/07/16 20:02 Dose: 12.5 ml Magnesium Hydroxide (Milk Of Magnesia) 30 ml PO ONETIME ONE Stop: 11/10/16 06:19 Last Admin: 11/10/16 06:39 Dose: 30 ml Meperidine HCl (Demerol) 12.5 mg IVPUSH ONETIME PRN PRN Reason: shivering Stop: 11/08/16 20:21 Metoprolol Tartrate (Lopressor) 5 mg IVPUSH Q4H PRN PRN Reason: HR >120 Midazolam HCl (Versed 1 Mg/Ml) Confirm Administered Dose 2 mg .ROUTE .STK-MED ONE Stop: 11/07/16 17:51 Neostigmine Methylsulfate (Neostigmine Methylsulfate) Confirm Administered Dose 10 mg .ROUTE .STK-MED ONE Stop: 11/07/16 21:13 Ondansetron HCl (Zofran) 4 mg IVPUSH ONETIME ONE Stop: 11/07/16 13:36 Last Admin: 11/07/16 14:14 Dose: 4 mg Ondansetron HCl (Zofran) Confirm Administered Dose 4 mg .ROUTE .STK-MED ONE Stop: 11/07/16 17:51 Ondansetron HCl (Zofran) 4 mg IVPUSH ONETIME PRN PRN Reason: Nausea/Vomiting Oxycodone/Acetaminophen (Percocet 325-5 Mg) 1 tab PO Q6H PRN PRN Reason: Pain Last Admin: 11/10/16 06:11 Dose: 1 tab Pneumococcal Polyvalent Vaccine (Pneumovax 23) 0.5 ml IM .ONCE ONE Stop: 11/08/16 00:18 Propofol (Diprivan 20 Ml) Confirm Administered Dose 200 mg .ROUTE .STK-MED ONE Stop: 11/07/16 17:51 Rocuronium Flippin (Zemuron) Confirm Administered Dose 50 mg .ROUTE .STK-MED ONE Stop: 11/07/16 17:51 Sodium Chloride (Saline Flush) 10 ml FLUSH ASDIRECTED PRN PRN Reason: Keep Vein Open Last Admin: 11/07/16 14:16 Dose: 10 ml Sodium Chloride (Saline Flush) 10 ml FLUSH ONETIME ONE Stop: 11/07/16 15:45 Last Admin: 11/07/16 16:24 Dose: 10 ml Succinylcholine Chloride (Quelicin) Confirm Administered Dose 200 mg .ROUTE .STK -MED ONE Stop: 11/07/16 21:36 Topiramate (Topamax) 25 mg PO BID [facility] Last Admin: 11/10/16 08:32 Dose: 25 mg - Exam GI/Abdominal Exam: Normal Bowel Sounds, Soft, Non-Tender, No Organomegaly, No Distention, No Abnormal Bruit, No Mass, Pelvis Stable - Problem List Review Problem List Initiated/Reviewed/Updated: Yes - My Orders Last 24 Hours: Active Orders 24 hr Category Date Time Status CBC W/O DIFF,HEMOGRAM [HEME] MOTH@0700 Lab 11/13/16 07:00 Ordered CBC W/O DIFF,HEMOGRAM [HEME] MOTH@0700 Lab 11/16/16 07:00 Ordered CBC W/O DIFF,HEMOGRAM [HEME] MOTH@0700 Lab 11/20/16 07:00 Ordered CBC W/O DIFF,HEMOGRAM [HEME] MOTH@0700 Lab 11/23/16 07:00 Ordered CBC W/O DIFF,HEMOGRAM [HEME] MOTH@0700 Lab 11/27/16 07:00 Ordered CBC W/O DIFF,HEMOGRAM [HEME] MOTH@0700 Lab 11/30/16 07:00 Ordered Medication Orders Acetaminophen (Tylenol) 650 mg PO Q4H PRN PRN Reason: Fever Last Admin: 11/08/16 20:17 Dose: 650 mg Hydrocodone Bitart/Acetaminophen ([place] 325-5 Mg) 1 tab PO Q6H PRN PRN Reason: Pain Last Admin: 11/11/16 20:48 Dose: 1 tab Admin: 11/10/16 20:28 Dose: 1 tab Albuterol/Ipratropium (Duoneb 3.0-0.5 Mg/3 Ml) 3 ml NEB Q6HRRT PRN PRN Reason: wheezing/SOB/cough Famotidine (Pepcid) 20 mg PO BID [facility] Last Admin: 11/12/16 08:15 Dose: 20 mg Admin: 11/11/16 20:47 Dose: 20 mg Admin: 11/11/16 08:53 Dose: 20 mg Admin: 11/10/16 20:30 Dose: 20 mg Admin: 11/10/16 08:32 Dose: 20 mg Admin: 11/09/16 20:20 Dose: 20 mg Admin: 11/09/16 08:54 Dose: 20 mg Admin: 11/08/16 20:18 Dose: 20 mg Folic Acid (Folic Acid) 1 mg PO DAILY [facility] Last Admin: 11/12/16 08:15 Dose: 1 mg Admin: 11/11/16 08:54 Dose: 1 mg Admin: 11/10/16 08:32 Dose: 1 mg Admin: 11/09/16 08:54 Dose: 1 mg Admin: 11/08/16 11:47 Dose: 1 mg Furosemide (Lasix) 20 mg PO DAILY [facility] Last Admin: 11/12/16 08:16 Dose: 20 mg Admin: 11/11/16 08:54 Dose: 20 mg Admin: 11/10/16 08:32 Dose: 20 mg Admin: 11/09/16 08:54 Dose: 20 mg Guaifenesin (Mucinex) 600 mg PO BID [facility] Last Admin: 11/12/16 08:15 Dose: 600 mg Admin: 11/11/16 20:47 Dose: 600 mg Admin: 11/11/16 08:54 Dose: 600 mg Admin: 11/10/16 20:31 Dose: 600 mg Admin: 11/10/16 08:32 Dose: 600 mg Admin: 11/09/16 20:20 Dose: 600 mg Admin: 11/09/16 09:38 Dose: 600 mg Heparin Sodium (Porcine) (Heparin Sodium) 5,000 units SUBCUT Q12HR [facility] Last Admin: 11/12/16 08:14 Dose: 5,000 units Admin: 11/11/16 20:46 Dose: 5,000 units Admin: 11/11/16 08:53 Dose: 5,000 units Admin: 11/10/16 20:32 Dose: 5,000 units Admin: 11/10/16 09:54 Dose: 5,000 units Hydralazine HCl (Apresoline) 20 mg IVPUSH Q4H PRN PRN Reason: sb/p >150 Piperacillin Sod/Tazobactam (Sod 4.5 gm/ Sodium Chloride) 100 mls @ 25 mls/hr IV Q8H [facility] Last Admin: 11/12/16 08:16 Dose: 25 mls/hr Infusion: 11/12/16 04:38 Dose: 25 mls/hr Admin: 11/12/16 00:38 Dose: 25 mls/hr Infusion: 11/11/16 20:05 Dose: 25 mls/hr Admin: 11/11/16 16:05 Dose: 25 mls/hr Infusion: 11/11/16 12:49 Dose: 25 mls/hr Admin: 11/11/16 08:49 Dose: 25 mls/hr Infusion: 11/11/16 04:14 Dose: 25 mls/hr Admin: 11/11/16 00:14 Dose: 25 mls/hr Infusion: 11/10/16 21:36 Dose: 25 mls/hr Admin: 11/10/16 17:36 Dose: 25 mls/hr Infusion: 11/10/16 12:31 Dose: 25 mls/hr Admin: 11/10/16 08:31 Dose: 25 mls/hr Infusion: 11/10/16 04:16 Dose: 25 mls/hr Admin: 11/10/16 00:16 Dose: 25 mls/hr Infusion: 11/09/16 20:13 Dose: 25 mls/hr Admin: 11/09/16 16:13 Dose: 25 mls/hr Infusion: 11/09/16 12:53 Dose: 25 mls/hr Admin: 11/09/16 08:53 Dose: 25 mls/hr Infusion: 11/09/16 04:18 Dose: 25 mls/hr Admin: 11/09/16 00:18 Dose: 25 mls/hr Infusion: 11/08/16 19:29 Dose: 25 mls/hr Admin: 11/08/16 15:29 Dose: 25 mls/hr Infusion: 11/08/16 10:59 Dose: 25 mls/hr Admin: 11/08/16 06:59 Dose: 25 mls/hr Lorazepam (Ativan) 2 mg IVPUSH Q4H PRN PRN Reason: Seizures Lorazepam (Ativan) 1 - 3 mg IVPUSH Q4H PRN; Protocol PRN Reason: Withdrawal Symptoms Magnesium Oxide (Magnesium Oxide) 400 mg PO DAILY [facility] Last Admin: 11/12/16 08:15 Dose: 400 mg Admin: 11/11/16 08:53 Dose: 400 mg Admin: 11/10/16 08:32 Dose: 400 mg Admin: 11/09/16 08:54 Dose: 400 mg Magnesium Sulfate (Pharmacy To Dose - Magnesium Replacement) 0 dose .XX ASDIRECTED PRN PRN Reason: RX TO MONITOR MAG LEVELS Metoprolol Tartrate (Lopressor) 5 mg IVPUSH Q4H PRN PRN Reason: Tachycardia Miscellaneous Information (Remove Patch) 0 ea TRDERM Q24H [facility] Last Admin: 11/11/16 13:18 Dose: 1 ea Admin: 11/10/16 14:14 Dose: 1 ea Admin: 11/09/16 17:21 Dose: Multivitamins (Thera) 1 each PO DAILY [facility] Last Admin: 11/12/16 08:15 Dose: 1 each Admin: 11/11/16 08:54 Dose: 1 each Admin: 11/10/16 08:31 Dose: 1 each Admin: 11/09/16 08:53 Dose: 1 each Admin: 11/08/16 11:46 Dose: 1 each Nicotine (Habitrol) 21 mg TRDERM Q24H [facility] Last Admin: 11/11/16 13:17 Dose: 21 mg Admin: 11/10/16 14:14 Dose: 21 mg Admin: 11/09/16 14:21 Dose: Admin: 11/09/16 12:51 Dose: 21 mg Admin: 11/08/16 15:30 Dose: 21 mg Ondansetron HCl (Zofran) 4 mg IVPUSH Q8H PRN PRN Reason: Nausea/Vomiting Potassium Chloride (Pharmacy To Dose - Potassium Replacement) 0 dose .XX ASDIRECTED PRN PRN Reason: RX TO MONITOR K LEVELS Potassium Chloride (Klor-Con M20) 20 meq PO BID [facility] Last Admin: 11/12/16 08:15 Dose: 20 meq Admin: 11/11/16 20:47 Dose: 20 meq Admin: 11/11/16 08:53 Dose: 20 meq Admin: 11/10/16 20:30 Dose: 20 meq Admin: 11/10/16 08:32 Dose: 20 meq Admin: 11/09/16 20:20 Dose: 20 meq Admin: 11/09/16 08:54 Dose: 20 meq Quetiapine Fumarate (Seroquel) 50 mg PO BEDTIME [facility] Last Admin: 11/11/16 20:48 Dose: 50 mg Admin: 11/10/16 20:32 Dose: 50 mg Admin: 11/09/16 20:20 Dose: 50 mg Admin: 11/08/16 20:18 Dose: 50 mg Sodium Chloride (Saline Flush) 10 ml FLUSH ASDIRECTED PRN PRN Reason: Keep Vein Open Thiamine HCl (Vitamin B-1) 100 mg PO BEDTIME [facility] Last Admin: 11/11/16 20:48 Dose: 100 mg Admin: 11/10/16 20:32 Dose: 100 mg Admin: 11/09/16 20:20 Dose: 100 mg Admin: 11/08/16 20:18 Dose: 100 mg - Plan Plan (Free Text/Narrative):: doing well s/p lap appy for ruptured appendix plan continue present treatment KLAUDIA
[2016-11-12] MEDS: Nicotine 21 MG/24 Hr Patch TRDERM SCH (15:03)
[2016-11-12] MEDS: Thiamine 100 MG Tab PO SCH (21:53)
[2016-11-12] MEDS: QUEtiapine 25 MG Tab PO SCH (21:58)
--- NOTE | 2016-11-13 07:46 | PCM.SURGPN ---
- General Info Date of Service: 11/13/16 Functional Status: Reports: Pain Controlled, Tolerating Diet, Ambulating, Urinating, Incentive Spirometry - Patient Data Vitals - Most Recent: Last Vital Signs Temp 36.8 C 11/13/16 02:55 Pulse 78 11/13/16 02:55 Resp 16 11/13/16 02:55 BP 121/82 11/13/16 02:55 Pulse Ox 96 11/13/16 02:55 Weight - Most Recent: 90.446 kg I&O - Last 24 Hours: Intake & Output 11/12/16 11/13/16 11/13/16 22:59 06:59 14:59 Intake Total 840 832 Balance 840 832 Lab Results Last 24 Hrs: Laboratory Results - last 24 hr 11/13/16 11/13/16 Range/Units 06:16 06:16 WBC 11.11 H (4.23-9.07) K/mm3 RBC 4.89 (4.63-6.08) M/mm3 Hgb 16.4 (13.7-17.5) gm/L Hct 46.8 (40.1-51.0) % MCV 95.7 H (79.0-92.2) fl MCH 33.5 H (25.7-32.2) pg MCHC 35.0 (32.2-35.5) g/dl RDW Std Deviation 48.8 H (35.1-43.9) fL Plt Count 126 L (163-337) K/mm3 MPV 11.3 (9.4-12.3) fl Sodium 142 (136-145) mEq/L Potassium 4.2 (3.5-5.1) mEq/L Chloride 108 H (98-107) mEq/L Carbon Dioxide 22 (21-32) mEq/L Anion Gap 16.2 H (5-15) BUN 11 (7-18) mg/dL Creatinine 1.4 H (0.7-1.3) mg/dL Est Cr Clr Drug Dosing 67.98 mL/min Estimated GFR (MDRD) 54 (>60) mL/min BUN/Creatinine Ratio 7.9 L (14-18) Glucose 110 H (74-106) mg/dL Calcium 9.0 (8.5-10.1) mg/dL Magnesium 2.3 (1.8-2.4) mg/dl Total Bilirubin 0.3 (0.2-1.0) mg/dL AST 75 H (15-37) U/L ALT 76 H (16-63) U/L Alkaline Phosphatase 72 (46-116) U/L Total Protein 6.7 (6.4-8.2) g/dl Albumin 2.9 L (3.4-5.0) g/dl Globulin 3.8 gm/dL Albumin/Globulin Ratio 0.8 L (1-2) Elmer Results Last 24 Hrs: Microbiology 11/08/16 20:30 Aerobic Blood Culture - Preliminary Blood - Venous - Lab Draw NO GROWTH AFTER 4 DAYS Anaerobic Blood Culture - Preliminary NO GROWTH AFTER 4 DAYS 11/08/16 20:43 Aerobic Blood Culture - Preliminary Blood - Venous NO GROWTH AFTER 4 DAYS Anaerobic Blood Culture - Preliminary NO GROWTH AFTER 4 DAYS Med Orders - Current: Current Medications Acetaminophen (Tylenol) 650 mg PO Q4H PRN PRN Reason: Fever Last Admin: 11/08/16 20:17 Dose: 650 mg Hydrocodone Bitart/Acetaminophen ([place] 325-5 Mg) 1 tab PO Q6H PRN PRN Reason: Pain Last Admin: 11/11/16 20:48 Dose: 1 tab Albuterol/Ipratropium (Duoneb 3.0-0.5 Mg/3 Ml) 3 ml NEB Q6HRRT PRN PRN Reason: wheezing/SOB/cough Famotidine (Pepcid) 20 mg PO BID [facility] Last Admin: 11/12/16 21:53 Dose: 20 mg Folic Acid (Folic Acid) 1 mg PO DAILY [facility] Last Admin: 11/12/16 08:15 Dose: 1 mg Furosemide (Lasix) 20 mg PO DAILY [facility] Last Admin: 11/12/16 08:16 Dose: 20 mg Guaifenesin (Mucinex) 600 mg PO BID [facility] Last Admin: 11/12/16 21:53 Dose: 600 mg Heparin Sodium (Porcine) (Heparin Sodium) 5,000 units SUBCUT Q12HR [facility] Last Admin: 11/12/16 21:53 Dose: 5,000 units Hydralazine HCl (Apresoline) 20 mg IVPUSH Q4H PRN PRN Reason: sb/p >150 Piperacillin Sod/Tazobactam (Sod 4.5 gm/ Sodium Chloride) 100 mls @ 25 mls/hr IV Q8H [facility] Last Admin: 11/12/16 23:20 Dose: 25 mls/hr Lorazepam (Ativan) 2 mg IVPUSH Q4H PRN PRN Reason: Seizures Lorazepam (Ativan) 1 - 3 mg IVPUSH Q4H PRN; Protocol PRN Reason: Withdrawal Symptoms Magnesium Oxide (Magnesium Oxide) 400 mg PO DAILY [facility] Last Admin: 11/12/16 08:15 Dose: 400 mg Magnesium Sulfate (Pharmacy To Dose - Magnesium Replacement) 0 dose .XX ASDIRECTED PRN PRN Reason: RX TO MONITOR MAG LEVELS Metoprolol Tartrate (Lopressor) 5 mg IVPUSH Q4H PRN PRN Reason: Tachycardia Miscellaneous Information (Remove Patch) 0 ea TRDERM Q24H [facility] Last Admin: 11/12/16 15:02 Dose: 1 ea Multivitamins (Thera) 1 each PO DAILY [facility] Last Admin: 11/12/16 08:15 Dose: 1 each Nicotine (Habitrol) 21 mg TRDERM Q24H [facility] Last Admin: 11/12/16 15:03 Dose: 21 mg Ondansetron HCl (Zofran) 4 mg IVPUSH Q8H PRN PRN Reason: Nausea/Vomiting Potassium Chloride (Pharmacy To Dose - Potassium Replacement) 0 dose .XX ASDIRECTED PRN PRN Reason: RX TO MONITOR K LEVELS Potassium Chloride (Klor-Con M20) 20 meq PO BID [facility] Last Admin: 11/12/16 21:53 Dose: 20 meq Quetiapine Fumarate (Seroquel) 50 mg PO BEDTIME [facility] Last Admin: 11/12/16 21:58 Dose: Not Given Sodium Chloride (Saline Flush) 10 ml FLUSH ASDIRECTED PRN PRN Reason: Keep Vein Open Thiamine HCl (Vitamin B-1) 100 mg PO BEDTIME [facility] Last Admin: 11/12/16 21:53 Dose: 100 mg Discontinued Medications Acetaminophen (Tylenol) 650 mg PO NOW ONE Stop: 11/08/16 03:14 Last Admin: 11/08/16 03:26 Dose: 650 mg Albuterol (Proventil Neb Soln) 2.5 mg NEB ONETIME ONE Stop: 11/07/16 19:01 Last Admin: 11/07/16 18:30 Dose: 2.5 mg Bupivacaine HCl/Epinephrine Bitart (Marcaine 0.5%/Epinephrine 1:200,000) Confirm Administered Dose 50 ml .ROUTE .STK-MED ONE Stop: 11/07/16 19:24 Last Admin: 11/07/16 20:02 Dose: 12.5 ml Chlordiazepoxide HCl (Librium) 50 mg PO BID EMILY Last Admin: 11/10/16 08:32 Dose: 50 mg Diatrizoate Meglum/Diatrizoate Sod (Gastrografin 37%) 90 ml PO ONETIME ONE Stop: 11/07/16 15:45 Last Admin: 11/07/16 16:23 Dose: 90 ml Diphtheria/Tetanus/Acell Pertussis (Adacel) 0.5 ml IM .ONCE ONE Stop: 11/08/16 00:18 Famotidine (Pepcid) 20 mg IVPUSH ONETIME ONE Stop: 11/07/16 13:36 Last Admin: 11/07/16 14:10 Dose: 20 mg Fentanyl (Sublimaze) Confirm Administered Dose 250 mcg .ROUTE .STK-MED ONE Stop: 11/07/16 17:51 Fentanyl (Sublimaze) 50 mcg IVPUSH Q5M PRN PRN Reason: Pain Fentanyl (Sublimaze) Confirm Administered Dose 100 mcg .ROUTE .STK-MED ONE Stop: 11/07/16 21:29 Glycopyrrolate (Robinul) Confirm Administered Dose 0.4 mg .ROUTE .STK-MED ONE Stop: 11/07/16 21:14 Glycopyrrolate (Robinul) Confirm Administered Dose 0.2 mg .ROUTE .STK-MED ONE Stop: 11/07/16 21:16 Hydromorphone HCl (Dilaudid) 0.5 mg IVPUSH ONETIME ONE Stop: 11/07/16 13:36 Last Admin: 11/07/16 13:47 Dose: 0.5 mg Hydromorphone HCl (Dilaudid) 0.5 mg IVPUSH NOW STA Stop: 11/07/16 16:02 Last Admin: 11/07/16 16:05 Dose: 0.5 mg Hydromorphone HCl (Dilaudid) 0.5 mg IVPUSH ONETIME ONE Stop: 11/07/16 18:02 Last Admin: 11/07/16 18:13 Dose: 0.5 mg Hydromorphone HCl (Dilaudid) 1 mg IVPUSH ONETIME ONE Stop: 11/07/16 18:56 Last Admin: 11/07/16 18:59 Dose: 1 mg Hydromorphone HCl (Dilaudid) Confirm Administered Dose 1 mg .ROUTE .STK-MED ONE Stop: 11/07/16 19:00 Last Admin: 11/08/16 00:20 Dose: Not Given Hydromorphone HCl (Dilaudid) 0.5 mg IVPUSH Q15M PRN PRN Reason: severe pain Stop: 11/07/16 20:36 Hydromorphone HCl (Dilaudid) 0.5 mg IVPUSH Q1H PRN PRN Reason: Pain Last Admin: 11/09/16 08:51 Dose: 0.5 mg Sodium Chloride (Normal Saline) 1,000 mls @ 999 mls/hr IV ONETIME [facility] Last Admin: 11/07/16 16:33 Dose: 999 mls/hr Sodium Chloride (Normal Saline) 1,000 mls @ 999 mls/hr IV ONETIME EMILY Sodium Chloride (Normal Saline) 100 mls @ 60 mls/hr IV ASDIRECTED [facility] Last Admin: 11/07/16 16:24 Dose: 60 mls/hr Lidocaine HCl (Xylocaine-Mpf 1%) Confirm Administered Dose 4 mls @ as directed .ROUTE .STK-MED ONE Stop: 11/07/16 17:51 Ertapenem 1 gm/ Sodium (Chloride) 100 mls @ 100 mls/hr IV ONETIME ONE Stop: 11/07/16 18:54 Last Admin: 11/07/16 18:22 Dose: 100 mls/hr Lactated Ringer's (Ringers, Lactated) Confirm Administered Dose 1,000 mls @ as directed .ROUTE .STK-MED ONE Stop: 11/07/16 20:38 Lactated Ringer's (Ringers, Lactated) Confirm Administered Dose 1,000 mls @ as directed .ROUTE .STK-MED ONE Stop: 11/07/16 20:38 Sodium Chloride (Normal Saline) 1,000 mls @ 150 mls/hr IV ASDIRECTED [facility] Last Admin: 11/09/16 03:14 Dose: 150 mls/hr Piperacillin Sod/Tazobactam (Sod 4.5 gm/ Sodium Chloride) 100 mls @ 200 mls/hr IV ONETIME ONE Stop: 11/07/16 22:29 Last Admin: 11/08/16 00:34 Dose: 200 mls/hr Magnesium Sulfate 2 gm/ Premix 50 mls @ 25 mls/hr IV ONETIME ONE Stop: 11/08/16 14:59 Last Admin: 11/08/16 12:44 Dose: 25 mls/hr Iopamidol (Isovue-370 (76%)) 100 ml IVPUSH ONETIME ONE Stop: 11/07/16 15:45 Last Admin: 11/07/16 16:24 Dose: 100 ml Ketorolac Tromethamine (Toradol) Confirm Administered Dose 30 mg .ROUTE .STK- MED ONE Stop: 11/07/16 21:35 Ketorolac Tromethamine (Toradol) 30 mg IVPUSH Q6H PRN PRN Reason: Pain Last Admin: 11/10/16 00:16 Dose: 30 mg Lidocaine/Epinephrine (Xylocaine 1% With Epinephrine 1:100,000) Confirm Administered Dose 20 ml .ROUTE .STK-MED ONE Stop: 11/07/16 19:24 Last Admin: 11/07/16 20:02 Dose: 12.5 ml Magnesium Hydroxide (Milk Of Magnesia) 30 ml PO ONETIME ONE Stop: 11/10/16 06:19 Last Admin: 11/10/16 06:39 Dose: 30 ml Meperidine HCl (Demerol) 12.5 mg IVPUSH ONETIME PRN PRN Reason: shivering Stop: 11/08/16 20:21 Metoprolol Tartrate (Lopressor) 5 mg IVPUSH Q4H PRN PRN Reason: HR >120 Midazolam HCl (Versed 1 Mg/Ml) Confirm Administered Dose 2 mg .ROUTE .STK-MED ONE Stop: 11/07/16 17:51 Neostigmine Methylsulfate (Neostigmine Methylsulfate) Confirm Administered Dose 10 mg .ROUTE .STK-MED ONE Stop: 11/07/16 21:13 Ondansetron HCl (Zofran) 4 mg IVPUSH ONETIME ONE Stop: 11/07/16 13:36 Last Admin: 11/07/16 14:14 Dose: 4 mg Ondansetron HCl (Zofran) Confirm Administered Dose 4 mg .ROUTE .STK-MED ONE Stop: 11/07/16 17:51 Ondansetron HCl (Zofran) 4 mg IVPUSH ONETIME PRN PRN Reason: Nausea/Vomiting Oxycodone/Acetaminophen (Percocet 325-5 Mg) 1 tab PO Q6H PRN PRN Reason: Pain Last Admin: 11/10/16 06:11 Dose: 1 tab Pneumococcal Polyvalent Vaccine (Pneumovax 23) 0.5 ml IM .ONCE ONE Stop: 11/08/16 00:18 Propofol (Diprivan 20 Ml) Confirm Administered Dose 200 mg .ROUTE .STK-MED ONE Stop: 11/07/16 17:51 Rocuronium [place] (Zemuron) Confirm Administered Dose 50 mg .ROUTE .STK-MED ONE Stop: 11/07/16 17:51 Sodium Chloride (Saline Flush) 10 ml FLUSH ASDIRECTED PRN PRN Reason: Keep Vein Open Last Admin: 11/07/16 14:16 Dose: 10 ml Sodium Chloride (Saline Flush) 10 ml FLUSH ONETIME ONE Stop: 11/07/16 15:45 Last Admin: 11/07/16 16:24 Dose: 10 ml Succinylcholine Chloride (Quelicin) Confirm Administered Dose 200 mg .ROUTE .STK -MED ONE Stop: 11/07/16 21:36 Topiramate (Topamax) 25 mg PO BID [facility] Last Admin: 11/10/16 08:32 Dose: 25 mg - Exam Lungs: Normal Respiratory Effort, Rhonchi (A few scattered) GI/Abdominal Exam: Normal Bowel Sounds, Soft, Non-Tender, No Distention - Problem List Review Problem List Initiated/Reviewed/Updated: Yes - My Orders Last 24 Hours: Active Orders 24 hr Category Date Time Status CBC W/O DIFF,HEMOGRAM [HEME] MOTH@0700 Lab 11/16/16 07:00 Ordered CBC W/O DIFF,HEMOGRAM [HEME] MOTH@0700 Lab 11/20/16 07:00 Ordered CBC W/O DIFF,HEMOGRAM [HEME] MOTH@0700 Lab 11/23/16 07:00 Ordered CBC W/O DIFF,HEMOGRAM [HEME] MOTH@0700 Lab 11/27/16 07:00 Ordered CBC W/O DIFF,HEMOGRAM [HEME] MOTH@0700 Lab 11/30/16 07:00 Ordered Medication Orders Acetaminophen (Tylenol) 650 mg PO Q4H PRN PRN Reason: Fever Last Admin: 11/08/16 20:17 Dose: 650 mg Hydrocodone Bitart/Acetaminophen ([place] 325-5 Mg) 1 tab PO Q6H PRN PRN Reason: Pain Last Admin: 11/11/16 20:48 Dose: 1 tab Admin: 11/10/16 20:28 Dose: 1 tab Albuterol/Ipratropium (Duoneb 3.0-0.5 Mg/3 Ml) 3 ml NEB Q6HRRT PRN PRN Reason: wheezing/SOB/cough Famotidine (Pepcid) 20 mg PO BID [facility] Last Admin: 11/12/16 21:53 Dose: 20 mg Admin: 11/12/16 08:15 Dose: 20 mg Admin: 11/11/16 20:47 Dose: 20 mg Admin: 11/11/16 08:53 Dose: 20 mg Admin: 11/10/16 20:30 Dose: 20 mg Admin: 11/10/16 08:32 Dose: 20 mg Admin: 11/09/16 20:20 Dose: 20 mg Admin: 11/09/16 08:54 Dose: 20 mg Admin: 11/08/16 20:18 Dose: 20 mg Folic Acid (Folic Acid) 1 mg PO DAILY [facility] Last Admin: 11/12/16 08:15 Dose: 1 mg Admin: 11/11/16 08:54 Dose: 1 mg Admin: 11/10/16 08:32 Dose: 1 mg Admin: 11/09/16 08:54 Dose: 1 mg Admin: 11/08/16 11:47 Dose: 1 mg Furosemide (Lasix) 20 mg PO DAILY [facility] Last Admin: 11/12/16 08:16 Dose: 20 mg Admin: 11/11/16 08:54 Dose: 20 mg Admin: 11/10/16 08:32 Dose: 20 mg Admin: 11/09/16 08:54 Dose: 20 mg Guaifenesin (Mucinex) 600 mg PO BID [facility] Last Admin: 11/12/16 21:53 Dose: 600 mg Admin: 11/12/16 08:15 Dose: 600 mg Admin: 11/11/16 20:47 Dose: 600 mg Admin: 11/11/16 08:54 Dose: 600 mg Admin: 11/10/16 20:31 Dose: 600 mg Admin: 11/10/16 08:32 Dose: 600 mg Admin: 11/09/16 20:20 Dose: 600 mg Admin: 11/09/16 09:38 Dose: 600 mg Heparin Sodium (Porcine) (Heparin Sodium) 5,000 units SUBCUT Q12HR [facility] Last Admin: 11/12/16 21:53 Dose: 5,000 units Admin: 11/12/16 08:14 Dose: 5,000 units Admin: 11/11/16 20:46 Dose: 5,000 units Admin: 11/11/16 08:53 Dose: 5,000 units Admin: 11/10/16 20:32 Dose: 5,000 units Admin: 11/10/16 09:54 Dose: 5,000 units Hydralazine HCl (Apresoline) 20 mg IVPUSH Q4H PRN PRN Reason: sb/p >150 Piperacillin Sod/Tazobactam (Sod 4.5 gm/ Sodium Chloride) 100 mls @ 25 mls/hr IV Q8H [facility] Last Admin: 11/12/16 23:20 Dose: 25 mls/hr Infusion: 11/12/16 19:03 Dose: 25 mls/hr Admin: 11/12/16 15:03 Dose: 25 mls/hr Infusion: 11/12/16 12:16 Dose: 25 mls/hr Admin: 11/12/16 08:16 Dose: 25 mls/hr Infusion: 11/12/16 04:38 Dose: 25 mls/hr Admin: 11/12/16 00:38 Dose: 25 mls/hr Infusion: 11/11/16 20:05 Dose: 25 mls/hr Admin: 11/11/16 16:05 Dose: 25 mls/hr Infusion: 11/11/16 12:49 Dose: 25 mls/hr Admin: 11/11/16 08:49 Dose: 25 mls/hr Infusion: 11/11/16 04:14 Dose: 25 mls/hr Admin: 11/11/16 00:14 Dose: 25 mls/hr Infusion: 11/10/16 21:36 Dose: 25 mls/hr Admin: 11/10/16 17:36 Dose: 25 mls/hr Infusion: 11/10/16 12:31 Dose: 25 mls/hr Admin: 11/10/16 08:31 Dose: 25 mls/hr Infusion: 11/10/16 04:16 Dose: 25 mls/hr Admin: 11/10/16 00:16 Dose: 25 mls/hr Infusion: 11/09/16 20:13 Dose: 25 mls/hr Admin: 11/09/16 16:13 Dose: 25 mls/hr Infusion: 11/09/16 12:53 Dose: 25 mls/hr Admin: 11/09/16 08:53 Dose: 25 mls/hr Infusion: 11/09/16 04:18 Dose: 25 mls/hr Admin: 11/09/16 00:18 Dose: 25 mls/hr Infusion: 11/08/16 19:29 Dose: 25 mls/hr Admin: 11/08/16 15:29 Dose: 25 mls/hr Infusion: 11/08/16 10:59 Dose: 25 mls/hr Admin: 11/08/16 06:59 Dose: 25 mls/hr Lorazepam (Ativan) 2 mg IVPUSH Q4H PRN PRN Reason: Seizures Lorazepam (Ativan) 1 - 3 mg IVPUSH Q4H PRN; Protocol PRN Reason: Withdrawal Symptoms Magnesium Oxide (Magnesium Oxide) 400 mg PO DAILY [facility] Last Admin: 11/12/16 08:15 Dose: 400 mg Admin: 11/11/16 08:53 Dose: 400 mg Admin: 11/10/16 08:32 Dose: 400 mg Admin: 11/09/16 08:54 Dose: 400 mg Magnesium Sulfate (Pharmacy To Dose - Magnesium Replacement) 0 dose .XX ASDIRECTED PRN PRN Reason: RX TO MONITOR MAG LEVELS Metoprolol Tartrate (Lopressor) 5 mg IVPUSH Q4H PRN PRN Reason: Tachycardia Miscellaneous Information (Remove Patch) 0 ea TRDERM Q24H [facility] Last Admin: 11/12/16 15:02 Dose: 1 ea Admin: 11/11/16 13:18 Dose: 1 ea Admin: 11/10/16 14:14 Dose: 1 ea Admin: 11/09/16 17:21 Dose: Multivitamins (Thera) 1 each PO DAILY [facility] Last Admin: 11/12/16 08:15 Dose: 1 each Admin: 11/11/16 08:54 Dose: 1 each Admin: 11/10/16 08:31 Dose: 1 each Admin: 11/09/16 08:53 Dose: 1 each Admin: 11/08/16 11:46 Dose: 1 each Nicotine (Habitrol) 21 mg TRDERM Q24H [facility] Last Admin: 11/12/16 15:03 Dose: 21 mg Admin: 11/11/16 13:17 Dose: 21 mg Admin: 11/10/16 14:14 Dose: 21 mg Admin: 11/09/16 14:21 Dose: Admin: 11/09/16 12:51 Dose: 21 mg Admin: 11/08/16 15:30 Dose: 21 mg Ondansetron HCl (Zofran) 4 mg IVPUSH Q8H PRN PRN Reason: Nausea/Vomiting Potassium Chloride (Pharmacy To Dose - Potassium Replacement) 0 dose .XX ASDIRECTED PRN PRN Reason: RX TO MONITOR K LEVELS Potassium Chloride (Klor-Con M20) 20 meq PO BID [facility] Last Admin: 11/12/16 21:53 Dose: 20 meq Admin: 11/12/16 08:15 Dose: 20 meq Admin: 11/11/16 20:47 Dose: 20 meq Admin: 11/11/16 08:53 Dose: 20 meq Admin: 11/10/16 20:30 Dose: 20 meq Admin: 11/10/16 08:32 Dose: 20 meq Admin: 11/09/16 20:20 Dose: 20 meq Admin: 11/09/16 08:54 Dose: 20 meq Quetiapine Fumarate (Seroquel) 50 mg PO BEDTIME [facility] Last Admin: 11/12/16 21:58 Dose: Not Given Admin: 11/11/16 20:48 Dose: 50 mg Admin: 11/10/16 20:32 Dose: 50 mg Admin: 11/09/16 20:20 Dose: 50 mg Admin: 11/08/16 20:18 Dose: 50 mg Sodium Chloride (Saline Flush) 10 ml FLUSH ASDIRECTED PRN PRN Reason: Keep Vein Open Thiamine HCl (Vitamin B-1) 100 mg PO BEDTIME [facility] Last Admin: 11/12/16 21:53 Dose: 100 mg Admin: 11/11/16 20:48 Dose: 100 mg Admin: 11/10/16 20:32 Dose: 100 mg Admin: 11/09/16 20:20 Dose: 100 mg Admin: 11/08/16 20:18 Dose: 100 mg - Assessment Assessment (Free Text/Narrative):: imp: Doing well. White blood cell count elevated slightly this morning but has a normal differential. Should be ready for discharge tomorrow. - Plan Plan (Free Text/Narrative):: plan: Discharge in a.m. Will continue on antibiotics orally.
[2016-11-13] MEDS: Famotidine 20 MG Tab PO SCH ×2 (08:08→21:47)
[2016-11-13] MEDS: Folic Acid 1 MG Tab PO SCH (08:08)
[2016-11-13] MEDS: Magnesium Oxide 400 MG Tab PO SCH (08:08)
[2016-11-13] MEDS: Multivitamins,Therapeutic Tab PO SCH (08:08)
[2016-11-13] MEDS: Piperacillin/Tazobactam 4.5 GM in Sodium Chloride 0.9% 100 ML IV SCH ×2 (08:08→15:27)
[2016-11-13] MEDS: guaiFENesin 600 MG Tab.ER PO SCH ×2 (08:08→21:47)
[2016-11-13] MEDS: Heparin Sodium 5,000 Units/ML Vial SUBCUT SCH ×2 (08:09→21:47)
--- NOTE | 2016-11-13 11:36 | CONS ---
CONSULTING PHYSICIAN: Ra Christopher MD DATE OF CONSULTATION: 11/10/2016 This is a 60-minute inpatient clinical event. IDENTIFICATION: The patient is a 51-year-old male who was admitted to the NICU at [facility] in [place], [place], on 11/07/2016. He is seen for psychiatric evaluation. CHIEF COMPLAINT: "I had sharp pain in my abdomen." HISTORY OF PRESENT ILLNESS: The patient is a 51-year-old male who was admitted on 11/07/2016 to [facility] in [place], [place], secondary to complaints of abdominal pain. Upon further workup, it was found that he had a ruptured appendix and was taken to surgery. He is being seen now for psychiatric consultation as he reports "I drink 2 to 3 drinks a week" of hard liquor. There was concern that he may have been drinking more heavily, but the patient adamantly denies this fact. He denies that he has any problems with drinking. He denies any previous chemical dependency treatments or DWIs. He states he is simply a recreational drinker. On top of that, the patient states his mood is good, especially prior to his recent medical difficulties. He also states his energy is good. He denies any vegetative symptoms of depression. He denies any suicidal or homicidal ideation. He denies any psychotic, delusional, or paranoid symptoms. He denies any illicit substance use complicating his clinical picture. He states he simply wants to get better from his recent surgical procedure and get back to his regular day-to-day activities out in the community. MEDICATIONS: Medications at the time of presentation, none. Since admission, he has been prescribed; 1. Librium 25 mg b.i.d. 2. Topamax 25 mg b.i.d. 3. Seroquel 50 mg at bedtime. 4. Ativan per [facility] protocol. ALLERGIES: The patient is allergic to shell fish. PAST MEDICAL HISTORY: Status post ruptured appendix. REVIEW OF SYSTEMS: Aside from GI, all other major organ systems are negative at this point in time for acute difficulties or complications. FAMILY PSYCHIATRIC AND CD HISTORY: The patient denies. PAST PSYCHIATRIC AND CD HISTORY: The patient denies any psychiatric hospitalizations or chemical dependency treatments in the past. Denies any previous suicide attempts or self-injurious behaviors. Denies any past psychiatric medication history. SOCIAL HISTORY: The patient was born in [place], [place]; raised in [place], [place] He is the fourth of 4 siblings, having 2 brothers and 1 sister. The patient's parents were throughout his childhood and adolescence. Father was a avila and a rancher. Mother also worked the homestead. The patient's highest level of education is some college. 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 He has been twice. He has no children and is not involved in any current relationship. He lives in [place], [place]. 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 He received an honorable discharge. He denies any legal difficulties. He is raised [place]. He enjoys video games and computer apps. MENTAL STATUS EXAM: The patient is a 51-year-old soft-spoken white male in no apparent distress. Speech is of regular rate and rhythm. The patient is cognitively oriented. Psychomotor activities within normal limits. There is no abnormal motor movements or tics observed. Gait and station are not observed. This patient is resting in bed during the interview. Mood is tired, but will read the success of his recent operation. Affect is cooperative overall for the purposes of the inpatient psychiatric consult. There is no behavioral or stated evidence of acute suicidal or homicidal ideation. No acute psychotic, delusional, or paranoid symptoms. Thought process is organized. There are no manic symptoms or loose associations evident. Judgment and insight appear unimpaired at this point in time. Motivation for help appears good. VITAL SIGNS: 118/91, 73, 16, and 97.5 degrees. IMPRESSION: Wilmer I: None. Wilmer II: None. Wilmer III: Status post ruptured appendix. Wilmer IV: Moderate. Wilmer V: 60. PLAN: 1. No psychiatric medications are necessary at this point in time as the patient does not appear to have any Wilmer I-pathology evident, and he does not appear to be a danger to himself or others. 2. Recommend that the patient follow the prescribed treatment plan as ordered by his primary medical treatment team. 3. Recommend that the patient followup with his primary MD when discharged back to community. 4. We will follow up with the patient as needed while he remains on the inpatient medical unit. 5. Crisis plan is in place. MMODAL /[id number]
[2016-11-13] MEDS: Nicotine 21 MG/24 Hr Patch TRDERM SCH (15:28)
[2016-11-13] MEDS: Thiamine 100 MG Tab PO SCH (21:47)
[2016-11-13] MEDS: QUEtiapine 25 MG Tab PO SCH (21:50)
[2016-11-14] MEDS: Piperacillin/Tazobactam 4.5 GM in Sodium Chloride 0.9% 100 ML IV SCH ×2 (00:03→08:49)
[2016-11-14 04:41] VITALS: BP 135/92
--- NOTE | 2016-11-14 07:35 | PCM.SURGPN ---
- General Info Date of Service: 11/14/16 Functional Status: Reports: Pain Controlled, Tolerating Diet, Ambulating, Urinating - Review of Systems Cardiovascular: Reports: No Symptoms Gastrointestinal: Reports: No Symptoms - Patient Data Vitals - Most Recent: Last Vital Signs Temp 36.5 C 11/14/16 04:28 Pulse 69 11/14/16 04:28 Resp 16 11/14/16 04:28 BP 135/92 H 11/14/16 04:28 Pulse Ox 96 11/14/16 04:28 Weight - Most Recent: 90.129 kg I&O - Last 24 Hours: Intake & Output 11/13/16 11/14/16 11/14/16 22:59 06:59 14:59 Intake Total 1620 500 Output Total 1450 600 Balance 170 -100 Elmer Results Last 24 Hrs: Microbiology 11/08/16 20:30 Aerobic Blood Culture - Preliminary Blood - Venous - Lab Draw NO GROWTH AFTER 5 DAYS Anaerobic Blood Culture - Preliminary NO GROWTH AFTER 5 DAYS 11/08/16 20:43 Aerobic Blood Culture - Preliminary Blood - Venous NO GROWTH AFTER 5 DAYS Anaerobic Blood Culture - Preliminary NO GROWTH AFTER 5 DAYS Med Orders - Current: Current Medications Acetaminophen (Tylenol) 650 mg PO Q4H PRN PRN Reason: Fever Last Admin: 11/08/16 20:17 Dose: 650 mg Hydrocodone Bitart/Acetaminophen (Rebecca 325-5 Mg) 1 tab PO Q6H PRN PRN Reason: Pain Last Admin: 11/11/16 20:48 Dose: 1 tab Albuterol/Ipratropium (Duoneb 3.0-0.5 Mg/3 Ml) 3 ml NEB Q6HRRT PRN PRN Reason: wheezing/SOB/cough Famotidine (Pepcid) 20 mg PO BID [facility] Last Admin: 11/13/16 21:47 Dose: 20 mg Folic Acid (Folic Acid) 1 mg PO DAILY [facility] Last Admin: 11/13/16 08:08 Dose: 1 mg Guaifenesin (Mucinex) 600 mg PO BID [facility] Last Admin: 11/13/16 21:47 Dose: 600 mg Heparin Sodium (Porcine) (Heparin Sodium) 5,000 units SUBCUT Q12HR [facility] Last Admin: 11/13/16 21:47 Dose: 5,000 units Hydralazine HCl (Apresoline) 20 mg IVPUSH Q4H PRN PRN Reason: sb/p >150 Piperacillin Sod/Tazobactam (Sod 4.5 gm/ Sodium Chloride) 100 mls @ 25 mls/hr IV Q8H [facility] Last Admin: 11/14/16 00:03 Dose: 25 mls/hr Lorazepam (Ativan) 2 mg IVPUSH Q4H PRN PRN Reason: Seizures Lorazepam (Ativan) 1 - 3 mg IVPUSH Q4H PRN; Protocol PRN Reason: Withdrawal Symptoms Magnesium Oxide (Magnesium Oxide) 400 mg PO DAILY [facility] Last Admin: 11/13/16 08:08 Dose: 400 mg Magnesium Sulfate (Pharmacy To Dose - Magnesium Replacement) 0 dose .XX ASDIRECTED PRN PRN Reason: RX TO MONITOR MAG LEVELS Metoprolol Tartrate (Lopressor) 5 mg IVPUSH Q4H PRN PRN Reason: Tachycardia Miscellaneous Information (Remove Patch) 0 ea TRDERM Q24H [facility] Last Admin: 11/13/16 15:28 Dose: 1 ea Multivitamins (Thera) 1 each PO DAILY [facility] Last Admin: 11/13/16 08:08 Dose: 1 each Nicotine (Habitrol) 21 mg TRDERM Q24H [facility] Last Admin: 11/13/16 15:28 Dose: 21 mg Ondansetron HCl (Zofran) 4 mg IVPUSH Q8H PRN PRN Reason: Nausea/Vomiting Potassium Chloride (Pharmacy To Dose - Potassium Replacement) 0 dose .XX ASDIRECTED PRN PRN Reason: RX TO MONITOR K LEVELS Quetiapine Fumarate (Seroquel) 50 mg PO BEDTIME [facility] Last Admin: 11/13/16 21:50 Dose: 50 mg Sodium Chloride (Saline Flush) 10 ml FLUSH ASDIRECTED PRN PRN Reason: Keep Vein Open Thiamine HCl (Vitamin B-1) 100 mg PO BEDTIME [facility] Last Admin: 11/13/16 21:47 Dose: 100 mg Discontinued Medications Acetaminophen (Tylenol) 650 mg PO NOW ONE Stop: 11/08/16 03:14 Last Admin: 11/08/16 03:26 Dose: 650 mg Albuterol (Proventil Neb Soln) 2.5 mg NEB ONETIME ONE Stop: 11/07/16 19:01 Last Admin: 11/07/16 18:30 Dose: 2.5 mg Bupivacaine HCl/Epinephrine Bitart (Marcaine 0.5%/Epinephrine 1:200,000) Confirm Administered Dose 50 ml .ROUTE .STK-MED ONE Stop: 11/07/16 19:24 Last Admin: 11/07/16 20:02 Dose: 12.5 ml Chlordiazepoxide HCl (Librium) 50 mg PO BID [facility] Last Admin: 11/10/16 08:32 Dose: 50 mg Diatrizoate Meglum/Diatrizoate Sod (Gastrografin 37%) 90 ml PO ONETIME ONE Stop: 11/07/16 15:45 Last Admin: 11/07/16 16:23 Dose: 90 ml Diphtheria/Tetanus/Acell Pertussis (Adacel) 0.5 ml IM .ONCE ONE Stop: 11/08/16 00:18 Famotidine (Pepcid) 20 mg IVPUSH ONETIME ONE Stop: 11/07/16 13:36 Last Admin: 11/07/16 14:10 Dose: 20 mg Fentanyl (Sublimaze) Confirm Administered Dose 250 mcg .ROUTE .STK-MED ONE Stop: 11/07/16 17:51 Fentanyl (Sublimaze) 50 mcg IVPUSH Q5M PRN PRN Reason: Pain Fentanyl (Sublimaze) Confirm Administered Dose 100 mcg .ROUTE .STK-MED ONE Stop: 11/07/16 21:29 Furosemide (Lasix) 20 mg PO DAILY [facility] Last Admin: 11/12/16 08:16 Dose: 20 mg Glycopyrrolate (Robinul) Confirm Administered Dose 0.4 mg .ROUTE .STK-MED ONE Stop: 11/07/16 21:14 Glycopyrrolate (Robinul) Confirm Administered Dose 0.2 mg .ROUTE .STK-MED ONE Stop: 11/07/16 21:16 Hydromorphone HCl (Dilaudid) 0.5 mg IVPUSH ONETIME ONE Stop: 11/07/16 13:36 Last Admin: 11/07/16 13:47 Dose: 0.5 mg Hydromorphone HCl (Dilaudid) 0.5 mg IVPUSH NOW STA Stop: 11/07/16 16:02 Last Admin: 11/07/16 16:05 Dose: 0.5 mg Hydromorphone HCl (Dilaudid) 0.5 mg IVPUSH ONETIME ONE Stop: 11/07/16 18:02 Last Admin: 11/07/16 18:13 Dose: 0.5 mg Hydromorphone HCl (Dilaudid) 1 mg IVPUSH ONETIME ONE Stop: 11/07/16 18:56 Last Admin: 11/07/16 18:59 Dose: 1 mg Hydromorphone HCl (Dilaudid) Confirm Administered Dose 1 mg .ROUTE .STK-MED ONE Stop: 11/07/16 19:00 Last Admin: 11/08/16 00:20 Dose: Not Given Hydromorphone HCl (Dilaudid) 0.5 mg IVPUSH Q15M PRN PRN Reason: severe pain Stop: 11/07/16 20:36 Hydromorphone HCl (Dilaudid) 0.5 mg IVPUSH Q1H PRN PRN Reason: Pain Last Admin: 11/09/16 08:51 Dose: 0.5 mg Sodium Chloride (Normal Saline) 1,000 mls @ 999 mls/hr IV ONETIME [facility] Last Admin: 11/07/16 16:33 Dose: 999 mls/hr Sodium Chloride (Normal Saline) 1,000 mls @ 999 mls/hr IV ONETIME [facility] Sodium Chloride (Normal Saline) 100 mls @ 60 mls/hr IV ASDIRECTED [facility] Last Admin: 11/07/16 16:24 Dose: 60 mls/hr Lidocaine HCl (Xylocaine-Mpf 1%) Confirm Administered Dose 4 mls @ as directed .ROUTE .[facility]-MED ONE Stop: 11/07/16 17:51 Ertapenem 1 gm/ Sodium (Chloride) 100 mls @ 100 mls/hr IV ONETIME ONE Stop: 11/07/16 18:54 Last Admin: 11/07/16 18:22 Dose: 100 mls/hr Lactated Ringer's (Ringers, Lactated) Confirm Administered Dose 1,000 mls @ as directed .ROUTE .ST-MED ONE Stop: 11/07/16 20:38 Lactated Ringer's (Ringers, Lactated) Confirm Administered Dose 1,000 mls @ as directed .ROUTE .ST-MED ONE Stop: 11/07/16 20:38 Sodium Chloride (Normal Saline) 1,000 mls @ 150 mls/hr IV ASDIRECTED [facility] Last Admin: 11/09/16 03:14 Dose: 150 mls/hr Piperacillin Sod/Tazobactam (Sod 4.5 gm/ Sodium Chloride) 100 mls @ 200 mls/hr IV ONETIME ONE Stop: 11/07/16 22:29 Last Admin: 11/08/16 00:34 Dose: 200 mls/hr Magnesium Sulfate 2 gm/ Premix 50 mls @ 25 mls/hr IV ONETIME ONE Stop: 11/08/16 14:59 Last Admin: 11/08/16 12:44 Dose: 25 mls/hr Iopamidol (Isovue-370 (76%)) 100 ml IVPUSH ONETIME ONE Stop: 11/07/16 15:45 Last Admin: 11/07/16 16:24 Dose: 100 ml Ketorolac Tromethamine (Toradol) Confirm Administered Dose 30 mg .ROUTE .STK- MED ONE Stop: 11/07/16 21:35 Ketorolac Tromethamine (Toradol) 30 mg IVPUSH Q6H PRN PRN Reason: Pain Last Admin: 11/10/16 00:16 Dose: 30 mg Lidocaine/Epinephrine (Xylocaine 1% With Epinephrine 1:100,000) Confirm Administered Dose 20 ml .ROUTE .STK-MED ONE Stop: 11/07/16 19:24 Last Admin: 11/07/16 20:02 Dose: 12.5 ml Magnesium Hydroxide (Milk Of Magnesia) 30 ml PO ONETIME ONE Stop: 11/10/16 06:19 Last Admin: 11/10/16 06:39 Dose: 30 ml Meperidine HCl (Demerol) 12.5 mg IVPUSH ONETIME PRN PRN Reason: shivering Stop: 11/08/16 20:21 Metoprolol Tartrate (Lopressor) 5 mg IVPUSH Q4H PRN PRN Reason: HR >120 Midazolam HCl (Versed 1 Mg/Ml) Confirm Administered Dose 2 mg .ROUTE .STK-MED ONE Stop: 11/07/16 17:51 Neostigmine Methylsulfate (Neostigmine Methylsulfate) Confirm Administered Dose 10 mg .ROUTE .STK-MED ONE Stop: 11/07/16 21:13 Ondansetron HCl (Zofran) 4 mg IVPUSH ONETIME ONE Stop: 11/07/16 13:36 Last Admin: 11/07/16 14:14 Dose: 4 mg Ondansetron HCl (Zofran) Confirm Administered Dose 4 mg .ROUTE .STK-MED ONE Stop: 11/07/16 17:51 Ondansetron HCl (Zofran) 4 mg IVPUSH ONETIME PRN PRN Reason: Nausea/Vomiting Oxycodone/Acetaminophen (Percocet 325-5 Mg) 1 tab PO Q6H PRN PRN Reason: Pain Last Admin: 11/10/16 06:11 Dose: 1 tab Pneumococcal Polyvalent Vaccine (Pneumovax 23) 0.5 ml IM .ONCE ONE Stop: 11/08/16 00:18 Potassium Chloride (Klor-Con M20) 20 meq PO BID [facility] Last Admin: 11/12/16 21:53 Dose: 20 meq Propofol (Diprivan 20 Ml) Confirm Administered Dose 200 mg .ROUTE .STK-MED ONE Stop: 11/07/16 17:51 Rocuronium [place] (Zemuron) Confirm Administered Dose 50 mg .ROUTE .STK-MED ONE Stop: 11/07/16 17:51 Sodium Chloride (Saline Flush) 10 ml FLUSH ASDIRECTED PRN PRN Reason: Keep Vein Open Last Admin: 11/07/16 14:16 Dose: 10 ml Sodium Chloride (Saline Flush) 10 ml FLUSH ONETIME ONE Stop: 11/07/16 15:45 Last Admin: 11/07/16 16:24 Dose: 10 ml Succinylcholine Chloride (Quelicin) Confirm Administered Dose 200 mg .ROUTE .STK -MED ONE Stop: 11/07/16 21:36 Topiramate (Topamax) 25 mg PO BID [facility] Last Admin: 11/10/16 08:32 Dose: 25 mg - Exam Wound/Incisions: Healing Well GI/Abdominal Exam: Soft, Non-Tender - Problem List Review Problem List Initiated/Reviewed/Updated: Yes - My Orders Last 24 Hours: Active Orders 24 hr Category Date Time Status Ready for Discharge [RC] PER UNIT ROUTINE Care 11/14/16 07:34 Ordered CBC W/O DIFF,HEMOGRAM [HEME] MOTH@0700 Lab 11/16/16 07:00 Ordered CBC W/O DIFF,HEMOGRAM [HEME] MOTH@0700 Lab 11/20/16 07:00 Ordered CBC W/O DIFF,HEMOGRAM [HEME] MOTH@0700 Lab 11/23/16 07:00 Ordered CBC W/O DIFF,HEMOGRAM [HEME] MOTH@0700 Lab 11/27/16 07:00 Ordered CBC W/O DIFF,HEMOGRAM [HEME] MOTH@0700 Lab 11/30/16 07:00 Ordered Assess Discharge Needs [OM.PC] Routine Oth 11/13/16 07:47 Ordered Medication Orders Acetaminophen (Tylenol) 650 mg PO Q4H PRN PRN Reason: Fever Last Admin: 11/08/16 20:17 Dose: 650 mg Hydrocodone Bitart/Acetaminophen (Rebecca 325-5 Mg) 1 tab PO Q6H PRN PRN Reason: Pain Last Admin: 11/11/16 20:48 Dose: 1 tab Admin: 11/10/16 20:28 Dose: 1 tab Albuterol/Ipratropium (Duoneb 3.0-0.5 Mg/3 Ml) 3 ml NEB Q6HRRT PRN PRN Reason: wheezing/SOB/cough Famotidine (Pepcid) 20 mg PO BID [facility] Last Admin: 11/13/16 21:47 Dose: 20 mg Admin: 11/13/16 08:08 Dose: 20 mg Admin: 11/12/16 21:53 Dose: 20 mg Admin: 11/12/16 08:15 Dose: 20 mg Admin: 11/11/16 20:47 Dose: 20 mg Admin: 11/11/16 08:53 Dose: 20 mg Admin: 11/10/16 20:30 Dose: 20 mg Admin: 11/10/16 08:32 Dose: 20 mg Admin: 11/09/16 20:20 Dose: 20 mg Admin: 11/09/16 08:54 Dose: 20 mg Admin: 11/08/16 20:18 Dose: 20 mg Folic Acid (Folic Acid) 1 mg PO DAILY [facility] Last Admin: 11/13/16 08:08 Dose: 1 mg Admin: 11/12/16 08:15 Dose: 1 mg Admin: 11/11/16 08:54 Dose: 1 mg Admin: 11/10/16 08:32 Dose: 1 mg Admin: 11/09/16 08:54 Dose: 1 mg Admin: 11/08/16 11:47 Dose: 1 mg Guaifenesin (Mucinex) 600 mg PO BID [facility] Last Admin: 11/13/16 21:47 Dose: 600 mg Admin: 11/13/16 08:08 Dose: 600 mg Admin: 11/12/16 21:53 Dose: 600 mg Admin: 11/12/16 08:15 Dose: 600 mg Admin: 11/11/16 20:47 Dose: 600 mg Admin: 11/11/16 08:54 Dose: 600 mg Admin: 11/10/16 20:31 Dose: 600 mg Admin: 11/10/16 08:32 Dose: 600 mg Admin: 11/09/16 20:20 Dose: 600 mg Admin: 11/09/16 09:38 Dose: 600 mg Heparin Sodium (Porcine) (Heparin Sodium) 5,000 units SUBCUT Q12HR [facility] Last Admin: 11/13/16 21:47 Dose: 5,000 units Admin: 11/13/16 08:09 Dose: 5,000 units Admin: 11/12/16 21:53 Dose: 5,000 units Admin: 11/12/16 08:14 Dose: 5,000 units Admin: 11/11/16 20:46 Dose: 5,000 units Admin: 11/11/16 08:53 Dose: 5,000 units Admin: 11/10/16 20:32 Dose: 5,000 units Admin: 11/10/16 09:54 Dose: 5,000 units Hydralazine HCl (Apresoline) 20 mg IVPUSH Q4H PRN PRN Reason: sb/p >150 Piperacillin Sod/Tazobactam (Sod 4.5 gm/ Sodium Chloride) 100 mls @ 25 mls/hr IV Q8H [facility] Last Admin: 11/14/16 00:03 Dose: 25 mls/hr Infusion: 11/13/16 19:27 Dose: 25 mls/hr Admin: 11/13/16 15:27 Dose: 25 mls/hr Infusion: 11/13/16 12:08 Dose: 25 mls/hr Admin: 11/13/16 08:08 Dose: 25 mls/hr Infusion: 11/13/16 03:20 Dose: 25 mls/hr Admin: 11/12/16 23:20 Dose: 25 mls/hr Infusion: 11/12/16 19:03 Dose: 25 mls/hr Admin: 11/12/16 15:03 Dose: 25 mls/hr Infusion: 11/12/16 12:16 Dose: 25 mls/hr Admin: 11/12/16 08:16 Dose: 25 mls/hr Infusion: 11/12/16 04:38 Dose: 25 mls/hr Admin: 11/12/16 00:38 Dose: 25 mls/hr Infusion: 11/11/16 20:05 Dose: 25 mls/hr Admin: 11/11/16 16:05 Dose: 25 mls/hr Infusion: 11/11/16 12:49 Dose: 25 mls/hr Admin: 11/11/16 08:49 Dose: 25 mls/hr Infusion: 11/11/16 04:14 Dose: 25 mls/hr Admin: 11/11/16 00:14 Dose: 25 mls/hr Infusion: 11/10/16 21:36 Dose: 25 mls/hr Admin: 11/10/16 17:36 Dose: 25 mls/hr Infusion: 11/10/16 12:31 Dose: 25 mls/hr Admin: 11/10/16 08:31 Dose: 25 mls/hr Infusion: 11/10/16 04:16 Dose: 25 mls/hr Admin: 11/10/16 00:16 Dose: 25 mls/hr Infusion: 11/09/16 20:13 Dose: 25 mls/hr Admin: 11/09/16 16:13 Dose: 25 mls/hr Infusion: 11/09/16 12:53 Dose: 25 mls/hr Admin: 11/09/16 08:53 Dose: 25 mls/hr Infusion: 11/09/16 04:18 Dose: 25 mls/hr Admin: 11/09/16 00:18 Dose: 25 mls/hr Infusion: 11/08/16 19:29 Dose: 25 mls/hr Admin: 11/08/16 15:29 Dose: 25 mls/hr Infusion: 11/08/16 10:59 Dose: 25 mls/hr Admin: 11/08/16 06:59 Dose: 25 mls/hr Lorazepam (Ativan) 2 mg IVPUSH Q4H PRN PRN Reason: Seizures Lorazepam (Ativan) 1 - 3 mg IVPUSH Q4H PRN; Protocol PRN Reason: Withdrawal Symptoms Magnesium Oxide (Magnesium Oxide) 400 mg PO DAILY [facility] Last Admin: 11/13/16 08:08 Dose: 400 mg Admin: 11/12/16 08:15 Dose: 400 mg Admin: 11/11/16 08:53 Dose: 400 mg Admin: 11/10/16 08:32 Dose: 400 mg Admin: 11/09/16 08:54 Dose: 400 mg Magnesium Sulfate (Pharmacy To Dose - Magnesium Replacement) 0 dose .XX ASDIRECTED PRN PRN Reason: RX TO MONITOR MAG LEVELS Metoprolol Tartrate (Lopressor) 5 mg IVPUSH Q4H PRN PRN Reason: Tachycardia Miscellaneous Information (Remove Patch) 0 ea TRDERM Q24H [facility] Last Admin: 11/13/16 15:28 Dose: 1 ea Admin: 11/12/16 15:02 Dose: 1 ea Admin: 11/11/16 13:18 Dose: 1 ea Admin: 11/10/16 14:14 Dose: 1 ea Admin: 11/09/16 17:21 Dose: Multivitamins (Thera) 1 each PO DAILY [facility] Last Admin: 11/13/16 08:08 Dose: 1 each Admin: 11/12/16 08:15 Dose: 1 each Admin: 11/11/16 08:54 Dose: 1 each Admin: 11/10/16 08:31 Dose: 1 each Admin: 11/09/16 08:53 Dose: 1 each Admin: 11/08/16 11:46 Dose: 1 each Nicotine (Habitrol) 21 mg TRDERM Q24H [facility] Last Admin: 11/13/16 15:28 Dose: 21 mg Admin: 11/12/16 15:03 Dose: 21 mg Admin: 11/11/16 13:17 Dose: 21 mg Admin: 11/10/16 14:14 Dose: 21 mg Admin: 11/09/16 14:21 Dose: Admin: 11/09/16 12:51 Dose: 21 mg Admin: 11/08/16 15:30 Dose: 21 mg Ondansetron HCl (Zofran) 4 mg IVPUSH Q8H PRN PRN Reason: Nausea/Vomiting Potassium Chloride (Pharmacy To Dose - Potassium Replacement) 0 dose .XX ASDIRECTED PRN PRN Reason: RX TO MONITOR K LEVELS Quetiapine Fumarate (Seroquel) 50 mg PO BEDTIME [facility] Last Admin: 11/13/16 21:50 Dose: 50 mg Admin: 11/12/16 21:58 Dose: Not Given Admin: 11/11/16 20:48 Dose: 50 mg Admin: 11/10/16 20:32 Dose: 50 mg Admin: 11/09/16 20:20 Dose: 50 mg Admin: 11/08/16 20:18 Dose: 50 mg Sodium Chloride (Saline Flush) 10 ml FLUSH ASDIRECTED PRN PRN Reason: Keep Vein Open Thiamine HCl (Vitamin B-1) 100 mg PO BEDTIME [facility] Last Admin: 11/13/16 21:47 Dose: 100 mg Admin: 11/12/16 21:53 Dose: 100 mg Admin: 11/11/16 20:48 Dose: 100 mg Admin: 11/10/16 20:32 Dose: 100 mg Admin: 11/09/16 20:20 Dose: 100 mg Admin: 11/08/16 20:18 Dose: 100 mg - Assessment Assessment (Free Text/Narrative):: imp: Ready for discharge - Plan Plan (Free Text/Narrative):: Discharge today
--- NOTE | 2016-11-14 07:40 | PCM.DCSUM1 ---
Discharge Summary - Hospital Course Free Text/Narrative:: The patient was taken from the recovery area after a successful procedure for a weeks worth of IV antibiotics. He had early signs of alcohol withdrawal which was uneventfully managed by the hospitalist team. Over the next several days he had intermittent temperature spikes which were most likely due to atelectasis. He received his IV antibiotics and had early return of his bowel function. He was vigorous in his use of pirometry as well as ambulation. White blood cell counts were followed and they fell towards normal. He was seen by Dr. Christopher of the psychiatry service for review. There were no additional postoperative issues. Brief History: See history of present illness and op note. - Discharge Data Discharge Date: 11/14/16 Discharge Disposition: Home, Self-Care 01 Condition: Good - Patient Summary/Data Operative Procedure(s) Performed: 1. laparoscopic appendectomy. 2. umbilical hernia repair Complications: Alcohol withdrawal Consults: Consultations 11/08/16 10:09 Consult to Physician [CONS] Routine 11/08/16 10:36 OT Evaluation and Treatment [CONS] Routine PT Evaluation and Treatment [CONS] Routine 11/08/16 13:56 Consult to Physician [CONS] Routine 11/09/16 07:48 Consult to Respiratory Therapy [Respiratory Care Assess and Treatment] [CONS] Routine Labs Pending at D/C: None Planned Operative Procedure(s) after DC: None Hospital Course: See above - Patient Instructions Diet: Usual Diet as Tolerated Activity: As Tolerated Driving: May Drive Today Showering/Bathing: May Shower Wound/Incision Care: Keep Operative Site/Wound Site Clean and Dry Notify Provider of: Fever, Increased Pain, Swelling and Redness - Discharge Plan Home Medications: Home Meds . [No Known Home Meds] 11/07/16 [History] Patient Handouts: Smoking Cessation, Tips for Success, [id number], Laparoscopic Appendectomy, Adult, Care After, [id number], Peritonitis Forms: ED Department Discharge Referrals: PCP,None [Primary Care Provider] - Todd Dutton MD [Physician] - 11/21/16 (Postop check) - Discharge Summary/Plan Comment DC Time >30 min.: No Discharge Summary/Plan Comment: A discharge plan was verbalized to the patient and provided to him in writing. I asked him to call me if he had any quick questions or concerns between discharge and his next follow-up visit with me in my office. I will continue him on 5 more days of antibiotics by mouth. They will be Bactrim DS as well as Flagyl. Tylenol with codeine was given to him for pain. - Patient Data Vitals - Most Recent: Last Vital Signs Temp 36.5 C 11/14/16 04:28 Pulse 69 11/14/16 04:28 Resp 16 11/14/16 04:28 BP 135/92 H 11/14/16 04:28 Pulse Ox 96 11/14/16 04:28 Weight - Most Recent: 90.129 kg I&O - Last 24 hours: Intake & Output 11/13/16 11/14/16 11/14/16 22:59 06:59 14:59 Intake Total 1620 500 Output Total 1450 600 Balance 170 -100 EMILIANO Results - Last 24 hrs: Microbiology 11/08/16 20:30 Aerobic Blood Culture - Preliminary Blood - Venous - Lab Draw NO GROWTH AFTER 5 DAYS Anaerobic Blood Culture - Preliminary NO GROWTH AFTER 5 DAYS 11/08/16 20:43 Aerobic Blood Culture - Preliminary Blood - Venous NO GROWTH AFTER 5 DAYS Anaerobic Blood Culture - Preliminary NO GROWTH AFTER 5 DAYS Med Orders - Current: Current Medications Acetaminophen (Tylenol) 650 mg PO Q4H PRN PRN Reason: Fever Last Admin: 11/08/16 20:17 Dose: 650 mg Hydrocodone Bitart/Acetaminophen ([place] 325-5 Mg) 1 tab PO Q6H PRN PRN Reason: Pain Last Admin: 11/11/16 20:48 Dose: 1 tab Albuterol/Ipratropium (Duoneb 3.0-0.5 Mg/3 Ml) 3 ml NEB Q6HRRT PRN PRN Reason: wheezing/SOB/cough Famotidine (Pepcid) 20 mg PO BID [facility] Last Admin: 11/13/16 21:47 Dose: 20 mg Folic Acid (Folic Acid) 1 mg PO DAILY [facility] Last Admin: 11/13/16 08:08 Dose: 1 mg Guaifenesin (Mucinex) 600 mg PO BID [facility] Last Admin: 11/13/16 21:47 Dose: 600 mg Heparin Sodium (Porcine) (Heparin Sodium) 5,000 units SUBCUT Q12HR [facility] Last Admin: 11/13/16 21:47 Dose: 5,000 units Hydralazine HCl (Apresoline) 20 mg IVPUSH Q4H PRN PRN Reason: sb/p >150 Piperacillin Sod/Tazobactam (Sod 4.5 gm/ Sodium Chloride) 100 mls @ 25 mls/hr IV Q8H [facility] Last Admin: 11/14/16 00:03 Dose: 25 mls/hr Lorazepam (Ativan) 2 mg IVPUSH Q4H PRN PRN Reason: Seizures Lorazepam (Ativan) 1 - 3 mg IVPUSH Q4H PRN; Protocol PRN Reason: Withdrawal Symptoms Magnesium Oxide (Magnesium Oxide) 400 mg PO DAILY [facility] Last Admin: 11/13/16 08:08 Dose: 400 mg Magnesium Sulfate (Pharmacy To Dose - Magnesium Replacement) 0 dose .XX ASDIRECTED PRN PRN Reason: RX TO MONITOR MAG LEVELS Metoprolol Tartrate (Lopressor) 5 mg IVPUSH Q4H PRN PRN Reason: Tachycardia Miscellaneous Information (Remove Patch) 0 ea TRDERM Q24H [facility] Last Admin: 11/13/16 15:28 Dose: 1 ea Multivitamins (Thera) 1 each PO DAILY [facility] Last Admin: 11/13/16 08:08 Dose: 1 each Nicotine (Habitrol) 21 mg TRDERM Q24H [facility] Last Admin: 11/13/16 15:28 Dose: 21 mg Ondansetron HCl (Zofran) 4 mg IVPUSH Q8H PRN PRN Reason: Nausea/Vomiting Potassium Chloride (Pharmacy To Dose - Potassium Replacement) 0 dose .XX ASDIRECTED PRN PRN Reason: RX TO MONITOR K LEVELS Quetiapine Fumarate (Seroquel) 50 mg PO BEDTIME [facility] Last Admin: 11/13/16 21:50 Dose: 50 mg Sodium Chloride (Saline Flush) 10 ml FLUSH ASDIRECTED PRN PRN Reason: Keep Vein Open Thiamine HCl (Vitamin B-1) 100 mg PO BEDTIME [facility] Last Admin: 11/13/16 21:47 Dose: 100 mg Discontinued Medications Acetaminophen (Tylenol) 650 mg PO NOW ONE Stop: 11/08/16 03:14 Last Admin: 11/08/16 03:26 Dose: 650 mg Albuterol (Proventil Neb Soln) 2.5 mg NEB ONETIME ONE Stop: 11/07/16 19:01 Last Admin: 11/07/16 18:30 Dose: 2.5 mg Bupivacaine HCl/Epinephrine Bitart (Marcaine 0.5%/Epinephrine 1:200,000) Confirm Administered Dose 50 ml .ROUTE .STK-MED ONE Stop: 11/07/16 19:24 Last Admin: 11/07/16 20:02 Dose: 12.5 ml Chlordiazepoxide HCl (Librium) 50 mg PO BID [facility] Last Admin: 11/10/16 08:32 Dose: 50 mg Diatrizoate Meglum/Diatrizoate Sod (Gastrografin 37%) 90 ml PO ONETIME ONE Stop: 11/07/16 15:45 Last Admin: 11/07/16 16:23 Dose: 90 ml Diphtheria/Tetanus/Acell Pertussis (Adacel) 0.5 ml IM .ONCE ONE Stop: 11/08/16 00:18 Famotidine (Pepcid) 20 mg IVPUSH ONETIME ONE Stop: 11/07/16 13:36 Last Admin: 11/07/16 14:10 Dose: 20 mg Fentanyl (Sublimaze) Confirm Administered Dose 250 mcg .ROUTE .STK-MED ONE Stop: 11/07/16 17:51 Fentanyl (Sublimaze) 50 mcg IVPUSH Q5M PRN PRN Reason: Pain Fentanyl (Sublimaze) Confirm Administered Dose 100 mcg .ROUTE .STK-MED ONE Stop: 11/07/16 21:29 Furosemide (Lasix) 20 mg PO DAILY [facility] Last Admin: 11/12/16 08:16 Dose: 20 mg Glycopyrrolate (Robinul) Confirm Administered Dose 0.4 mg .ROUTE .STK-MED ONE Stop: 11/07/16 21:14 Glycopyrrolate (Robinul) Confirm Administered Dose 0.2 mg .ROUTE .STK-MED ONE Stop: 11/07/16 21:16 Hydromorphone HCl (Dilaudid) 0.5 mg IVPUSH ONETIME ONE Stop: 11/07/16 13:36 Last Admin: 11/07/16 13:47 Dose: 0.5 mg Hydromorphone HCl (Dilaudid) 0.5 mg IVPUSH NOW STA Stop: 11/07/16 16:02 Last Admin: 11/07/16 16:05 Dose: 0.5 mg Hydromorphone HCl (Dilaudid) 0.5 mg IVPUSH ONETIME ONE Stop: 11/07/16 18:02 Last Admin: 11/07/16 18:13 Dose: 0.5 mg Hydromorphone HCl (Dilaudid) 1 mg IVPUSH ONETIME ONE Stop: 11/07/16 18:56 Last Admin: 11/07/16 18:59 Dose: 1 mg Hydromorphone HCl (Dilaudid) Confirm Administered Dose 1 mg .ROUTE .STK-MED ONE Stop: 11/07/16 19:00 Last Admin: 11/08/16 00:20 Dose: Not Given Hydromorphone HCl (Dilaudid) 0.5 mg IVPUSH Q15M PRN PRN Reason: severe pain Stop: 11/07/16 20:36 Hydromorphone HCl (Dilaudid) 0.5 mg IVPUSH Q1H PRN PRN Reason: Pain Last Admin: 11/09/16 08:51 Dose: 0.5 mg Sodium Chloride (Normal Saline) 1,000 mls @ 999 mls/hr IV ONETIME [facility] Last Admin: 11/07/16 16:33 Dose: 999 mls/hr Sodium Chloride (Normal Saline) 1,000 mls @ 999 mls/hr IV ONETIME [facility]ILY Sodium Chloride (Normal Saline) 100 mls @ 60 mls/hr IV ASDIRECTED [facility] Last Admin: 11/07/16 16:24 Dose: 60 mls/hr Lidocaine HCl (Xylocaine-Mpf 1%) Confirm Administered Dose 4 mls @ as directed .ROUTE .ST-MED ONE Stop: 11/07/16 17:51 Ertapenem 1 gm/ Sodium (Chloride) 100 mls @ 100 mls/hr IV ONETIME ONE Stop: 11/07/16 18:54 Last Admin: 11/07/16 18:22 Dose: 100 mls/hr Lactated Ringer's (Ringers, Lactated) Confirm Administered Dose 1,000 mls @ as directed .ROUTE .STK-MED ONE Stop: 11/07/16 20:38 Lactated Ringer's (Ringers, Lactated) Confirm Administered Dose 1,000 mls @ as directed .ROUTE .STK-MED ONE Stop: 11/07/16 20:38 Sodium Chloride (Normal Saline) 1,000 mls @ 150 mls/hr IV ASDIRECTED [facility] Last Admin: 11/09/16 03:14 Dose: 150 mls/hr Piperacillin Sod/Tazobactam (Sod 4.5 gm/ Sodium Chloride) 100 mls @ 200 mls/hr IV ONETIME ONE Stop: 11/07/16 22:29 Last Admin: 11/08/16 00:34 Dose: 200 mls/hr Magnesium Sulfate 2 gm/ Premix 50 mls @ 25 mls/hr IV ONETIME ONE Stop: 11/08/16 14:59 Last Admin: 11/08/16 12:44 Dose: 25 mls/hr Iopamidol (Isovue-370 (76%)) 100 ml IVPUSH ONETIME ONE Stop: 11/07/16 15:45 Last Admin: 11/07/16 16:24 Dose: 100 ml Ketorolac Tromethamine (Toradol) Confirm Administered Dose 30 mg .ROUTE .STK- MED ONE Stop: 11/07/16 21:35 Ketorolac Tromethamine (Toradol) 30 mg IVPUSH Q6H PRN PRN Reason: Pain Last Admin: 11/10/16 00:16 Dose: 30 mg Lidocaine/Epinephrine (Xylocaine 1% With Epinephrine 1:100,000) Confirm Administered Dose 20 ml .ROUTE .STK-MED ONE Stop: 11/07/16 19:24 Last Admin: 11/07/16 20:02 Dose: 12.5 ml Magnesium Hydroxide (Milk Of Magnesia) 30 ml PO ONETIME ONE Stop: 11/10/16 06:19 Last Admin: 11/10/16 06:39 Dose: 30 ml Meperidine HCl (Demerol) 12.5 mg IVPUSH ONETIME PRN PRN Reason: shivering Stop: 11/08/16 20:21 Metoprolol Tartrate (Lopressor) 5 mg IVPUSH Q4H PRN PRN Reason: HR >120 Midazolam HCl (Versed 1 Mg/Ml) Confirm Administered Dose 2 mg .ROUTE .STK-MED ONE Stop: 11/07/16 17:51 Neostigmine Methylsulfate (Neostigmine Methylsulfate) Confirm Administered Dose 10 mg .ROUTE .STK-MED ONE Stop: 11/07/16 21:13 Ondansetron HCl (Zofran) 4 mg IVPUSH ONETIME ONE Stop: 11/07/16 13:36 Last Admin: 11/07/16 14:14 Dose: 4 mg Ondansetron HCl (Zofran) Confirm Administered Dose 4 mg .ROUTE .STK-MED ONE Stop: 11/07/16 17:51 Ondansetron HCl (Zofran) 4 mg IVPUSH ONETIME PRN PRN Reason: Nausea/Vomiting Oxycodone/Acetaminophen (Percocet 325-5 Mg) 1 tab PO Q6H PRN PRN Reason: Pain Last Admin: 11/10/16 06:11 Dose: 1 tab Pneumococcal Polyvalent Vaccine (Pneumovax 23) 0.5 ml IM .ONCE ONE Stop: 11/08/16 00:18 Potassium Chloride (Klor-Con M20) 20 meq PO BID [facility] Last Admin: 11/12/16 21:53 Dose: 20 meq Propofol (Diprivan 20 Ml) Confirm Administered Dose 200 mg .ROUTE .STK-MED ONE Stop: 11/07/16 17:51 Rocuronium [place] (Zemuron) Confirm Administered Dose 50 mg .ROUTE .STK-MED ONE Stop: 11/07/16 17:51 Sodium Chloride (Saline Flush) 10 ml FLUSH ASDIRECTED PRN PRN Reason: Keep Vein Open Last Admin: 11/07/16 14:16 Dose: 10 ml Sodium Chloride (Saline Flush) 10 ml FLUSH ONETIME ONE Stop: 11/07/16 15:45 Last Admin: 11/07/16 16:24 Dose: 10 ml Succinylcholine Chloride (Quelicin) Confirm Administered Dose 200 mg .ROUTE .STK -MED ONE Stop: 11/07/16 21:36 Topiramate (Topamax) 25 mg PO BID [facility] Last Admin: 11/10/16 08:32 Dose: 25 mg *Q Meaningful Use (DIS) - VTE *Q VTE Criteria *Q: - Stroke *Q Stroke Criteria *Q: - AMI *Q AMI Criteria *Q:
[2016-11-14] MEDS: Magnesium Oxide 400 MG Tab PO SCH (08:46)
[2016-11-14] MEDS: Famotidine 20 MG Tab PO SCH (08:46)
[2016-11-14] MEDS: guaiFENesin 600 MG Tab.ER PO SCH (08:46)
[2016-11-14] MEDS: Multivitamins,Therapeutic Tab PO SCH (08:46)
[2016-11-14] MEDS: Folic Acid 1 MG Tab PO SCH (08:47)
[2016-11-14] MEDS: Heparin Sodium 5,000 Units/ML Vial SUBCUT SCH (08:49)
[2016-11-14] MEDS ORDERED: Diphtheria,Pertussis(Acell),Tetanus Vaccine 0.5 ML SDV IM ONE (09:30)
[2016-11-14] MEDS ORDERED: Pneumococcal Polyvalent-23 Vaccine 0.5 ML SDV IM ONE (11:30)
--- NOTE | 2016-12-27 09:06 | PN ---
The patient was seen on 11/10/2016, 11/11/2016, 11/12/2016, status post laparoscopic appendectomy by Dr. Dutton; and in his absence, I followed the patient in the postop care on 11/10/2016, 11/11/2016, and 11/12/2016. MMODAL /[id number]
== END 2016-11-14 10:40 | disposition home or self-care (01) | DRG 339 ==
LOC: JD.ED 13:07 → JD.SDS 17:46 → JD.MS 19:50
PROVIDERS: ADMIT Surgery; ATTEND Surgery
PROC: 0DTJ4ZZ Resection of Appendix, Percutaneous Endoscopic Approach (ICD-10-PCS; principal; 2016-11-07)
PROC: 0WQF4ZZ Repair Abdominal Wall, Percutaneous Endoscopic Approach (ICD-10-PCS; 2016-11-07)
DX: K35.3 Acute appendicitis with localized peritonitis (principal); J98.11 Atelectasis; F10.239 Alcohol dependence with withdrawal, unspecified; F17.210 Nicotine dependence, cigarettes, uncomplicated; Z91.013 Allergy to seafood
CPT/HCPCS: 00840; 36415; 74177; 74177-26; 76705; 76705-26; 80048; 80053; 80306; 81001; 82977; 83690; 83735; 85025; 85027; 86140; 87040; 88304; 88304-26; 90715; 90732; 94664; 94762; 96361; 96365; 96375; 96376; 97161-GP; 97165-GO; 99284; 99285-25; A9270-GY; G0480; J0330; J1170; J1335; J1644; J1885; J2250; J2405; J2543; J2704; J2710; J3010; J3475; J3490; J7030; J7040; J7050; J7120; Q9963; Q9967